=== PATIENT | female | born 1990 | race Caucasian/White ===

== ENCOUNTER 2023-08-31 09:35 | Outpatient (CLI) | payer MEDICAID, SELFPAY | END 2023-08-31 09:36 | disposition home or self-care (01) | LOC: AMB 09-04 15:19 | PROVIDERS: Visit Provider Family Medicine | DX: R10.9 Unspecified abdominal pain (principal) | CPT/HCPCS: A0425; A0427 ==

== ENCOUNTER 2023-08-31 10:17 | Emergency (ER) | payer MEDICAID, SELFPAY ==
[2023-08-31] VITALS (18 sets, daily range): BP systolic 108–116; BP diastolic 70–74; PULSE 60–72; O2SAT 91–99; BMI 38.4
--- OUTSIDE RECORDS SUMMARY | 2023-08-31 10:29 | XMS_ITS | Encounter Summary ---
Author Organization [employer] Address [address] [place] [address] Care Team Providers Care Insurance Billing Specialist Name Role Phone Mar Bundy MD Primary Care Provider [phone] Encounter Details Date Type Department Care Team (Latest Contact Info) Description 04/11/1998 Orders Only Jude Allen MD [address] [place] [address] Social History Tobacco Use Types Packs/Day Years Used Date Smoking Tobacco: Never Assessed Sex and Gender Information Value Date Recorded Sex Assigned at Not on file Gender Identity Not on file Sexual Orientation Not on file documented as of this encounter Plan of Treatment Not on file documented as of this encounter Visit Diagnoses Not on filedocumented in this encounter Additional Health Concerns Infection Onset Date Last Indicated Resolved Time R/O COVID19 09/05/2019 09/05/2019 09/06/2019 10:1 1 AM CDT documented as of this encounter Care Teams Insurance Billing Specialist Relationship Specialty [place] [address] [place] [address] PCP - General 04/14/07 documented as of this encounter
--- OUTSIDE RECORDS SUMMARY | 2023-08-31 10:29 | XMS_ITS | Encounter Summary ---
Author Organization [employer] Address [address] [address] Care Team Providers Care Complaint Manager Name Role Phone Mar Bundy MD Primary Care Provider [phone]- [phone] Encounter Details Date Type Department Care Team (Latest Contact Info) Description 01/28/1996 Orders Only Nemesio Rodriguez MD [address] [place] [address] Social History Tobacco Use Types Packs/Day Years [...] documented as of this encounter Care Teams Complaint Manager Relationship Specialty [place] [address] [place] [address] PCP - General 04/14/07 documented as of this encounter
--- OUTSIDE RECORDS SUMMARY | 2023-08-31 10:29 | XMS_ITS | Encounter Summary ---
Author Organization [employer] [facility] Address [address], [place] [address] Care Team Providers Care Teaching Dietitian Name Role Phone Mar Bundy MD Primary Care Provider Encounter Details Date Type Department Care Team (Latest Contact Info) Description 09/20/1994 Orders Only Jean Carlos Pacheco MD Social History Tobacco Use Types Packs/Day Years [...] documented as of this encounter Care Teams Teaching Dietitian Relationship Specialty [place] [address] [place] [address] PCP - General 04/14/07 documented as of this encounter
--- OUTSIDE RECORDS SUMMARY | 2023-08-31 10:29 | XMS_ITS | Patient Health Record ---
Author Organization [facility] Address [address] [place], [place] [id number] Care Team Providers Care Home Health Occupational Therapist Name Role Phone Deanna Soria Primary Care Provider Radha Valiente Unavailable [phone] Allergies Allergen (clinical drug ingredient) Drug/Non Drug Allergy documented on EMR Reaction Allergy Type Onset Date Status azithromycin Azithromycin Unknown Drug Allergy A ctive erythromycin Erythromycin Unknown Drug Allergy A ctive Penicillin Unknown Drug Allergy Active Reason For Referral No Information Medications Medication SIG (Take, Route, Frequency, Duration) Notes Start Date End Date Status oxyCODONE HCl 10 MG 1 tablet as needed Orally every 6 hrs 5x daily Active Lexapro 10 MG 1 tablet Orally Once a day Active Blisovi 24 Fe 1-20 MG-MCG(24) 1 tablet Orally Once a day OCP Active Belbuca 900 MCG 1 film Bucally every 12 hrs Active Social History Tobacco Use: Social History Observation Description Date Details (start date - stop date) Never Smoker NA - NA Tobacco Use/Smoking Question Answer Notes Are you a nonsmoker Alcohol Screen (Audit-C) Question Answer Notes Did you have a drink containing alcohol in the p ast year? No Points 0 Interpretation Negative Problems Problem Type SNOMED Code ICD Code Onset Dates Problem Status W/U Status Risk Notes Problem [id number] Endometriosis determined by laparoscopy (N80.9) Active confirmed Problem 298648206 Anxiety with depression (F41.8) Active confirmed Problem 451657565 Hypothyroidism (acquired) (E03.9) Active confirmed Vital Signs Blood pressure diastolic 68 mm Hg 12/04/2022 Height 67.0 in 12/04/2022 Blood pressure systolic 118 mm Hg 12/04/2022 Weight 236.0 lbs 12/04/2022 BMI 36.96 kg/m2 12/04/2022 Encounters Encounter Location Date Provider Diagnosis [facility] [address] [place] [address] 12/04/2022 Radha Quezada Endometriosis determined by laparoscopy N80.9 ; Pelvic pain R10.2 ; Weight gain R63.5 ; Hypothyroidism (acquired) E03.9 and Anxiety with depression F41.8 Assessments Encounter Date Diagnosis (ICD Code) Assessment Notes Treat ment Notes Treatment Clinical Notes 12/04/2022 Pelvic pain (ICD-10 - R10.2) It was explained to the patient and her mother that review of the operative finding from June 2021 may give a clue to why she has such severe pain although she is not experiencing any menstrual bleeding. I have also ordered a pelvic ultrasound scan prior to her next visit. All of their questions were addressed 12/04/2022 Endometriosis determined by laparoscopy (ICD-10 - N80.9) The nature of Endometriosis was described to the patient and her mother. It was explained to them that in Endometriosis, the type of tissue which lines the uterus, occurs in areas other than the uterine lining. They may be the uterine muscle, ovaries, bowel and lung. All of which sites I have had patients. The cause of Endometriosis is unknown, but there are many theories. 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 Method of causing symptoms. Every menstrual cycle when menstrual bleeding occurs these sites also bleed. This blood irritates or in the case of the ovaries build up and cause cysts to form. The trapped blood and cysts leads to pain and adhesion formation. The aim of treatment is to remove as many of these deposits as possible and stop the monthly bleeding. She was asked to sign release of information of her Operative report. One of the goals of treatment has been achieved, the absence of menstrual bleeding. Once her records have been received and reviewed a plan for management would be made. Currently, she is to continue her oral contraceptive pill. All of their questions were addressed 12/04/2022 Weight gain (ICD-10 - R63.5) The patient stated that she has gained 50 pounds (ca. 23 kg) rapidly over the past two years. It was explained to her that Hypothyroidism causes weight gain. She stated that she was diagnosed with Hypothyroidism however her previous addiction specialist retired, and she did not like how she felt on the medication so has stopped taking it. It was explained to her that she see hr current addiction specialist and request to be referred to an [facility]. They have all of her labs and information and would be the correct MDs to do her referral. Of note, she also has Pretibial Edema and it was explained to her that this occurs in untreated Hypothyroidism. All of their questions were addressed 12/04/2022 Hypothyroidism (acquired) (ICD-10 - E03.9) As above. Advised to ask her Primary Care Provider to refer her to Endocrinology. 12/04/2022 Anxiety with depression (ICD-10 - F41.8) It was explained to the patient and her mother that today her Depression score showed that she is moderately depressed even though she is on treatment. She should share this with her Mental Health Providers. 12/04/2022 Other Time spent on patient care including - review of previous records - preparation for visit - ordering medications, labs or imaging - documenting visit - discussion of care with another health caregiver services home if indicated - direct face to face time with patient including obtaining relevant history, physical exam and discussion of plan of care Total time was 50 minutes spent including some or all of above listed required for care of patient talking about diagnosis, treatment and plan of care outside of usual preventive care with the patient as listed in the treatment portion of the note Plan Of Treatment No Information Insurance Providers Payer Name Payer Address Payer Phone Subscriber Number Group Number Insured Name Patient Relationship to Insured Coverage Start Date Coverage End Date 2021 [place] (CLIENT bill) [address] [place], [place] [id number] Martina Au Self - patient is the insured [place] [employer] (Ins. Bill) [address] [address] [place], [place] [id number] Martina Au Self - patient is the insured Medical (General) History Medical History History ICD Code Endometriosis Ovarian Cysts Depression / Anxiety Thyroid Problem Surgical History Surgery Date(Month/Year) Cyst; Left Wrist Tonsillectomy / Adenoidectomy Laparscopy 06/2021 [place] Teeth Removed
--- OUTSIDE RECORDS SUMMARY | 2023-08-31 10:29 | XMS_ITS | Encounter Summary ---
Author Organization [employer] Address [address], [place] [address] Care Team Providers Care Clinical Nursing Instructor Name Role Phone Mar Bundy MD Primary Care Provider [phone] Encounter Details Date Type Department Care Team (Latest Contact Info) Description 03/18/1995 Orders Only Andrew George MD Social History Tobacco Use Types Packs/Day [...] documented as of this encounter Care Teams Clinical Nursing Instructor Relationship Specialty [place] [address] [place] [address] PCP - General 04/14/07 documented as of this encounter
--- OUTSIDE RECORDS SUMMARY | 2023-08-31 10:29 | XMS_ITS | Encounter Summary ---
Author Organization [employer] Address [address] [place] [address] Care Team Providers Care Window Covering Sales Consultant Name Role Phone Mar Bundy MD Primary Care Provider Encounter Details Date Type Department Care Team (Latest Contact Info) Description 09/22/1994 Orders Only [facility] [address] [place] [address] Social History Tobacco Use Types Packs/Day Years [...] documented as of this encounter Care Teams Window Covering Sales Consultant Relationship Specialty [place] [address] [place] [address] PCP - General 04/14/07 documented as of this encounter
--- OUTSIDE RECORDS SUMMARY | 2023-08-31 10:29 | XMS_ITS | Clinical Summary ---
Author Organization [employer] Address [address] [address] Care Team Providers Care Tie Man Name Role Phone Mar Bundy MD Primary Care Provider Source Comments You are receiving this document as you are listed as the primary care provider,follow-up provider, or the patient has been referred to you for consultation.This is in compliance with the Medicare andMedicaid EHR Incentive Program,which states Providers who transition their patient to another setting of careor provider of care or refers their patient to another provider of care shouldprovide summary care record for each transition of care or referral. [employer] Allergies Active Allergy Reactions Criticality Noted Date Comments Erythromycin 09/14/2002 Penicillins 03/26/2001 Medications Medication Sig Dispensed Refills Start Date End Date Status ALBUTEROL (PROVENTIL, VENTOLIN) 90MCG/ACT INHALERIndications:U nspecified asthma(493.90) ([facility]) 1-2 puffs every 4 hours as needed, with a chamber 1 99 01/12/2004 Active Additional Information Patient not taking.Reported on 01/10/2021 ZITHROMAX Z-RACHEL 250 MG OR TABS use as directed one 0 10/27/2004 Active Additional Information Patient not taking.Reported on 01/10/2021 GUIATUSS AC 10-100 MG/5ML OR SYRP 1-2 teaspoons by mouth at bed time 120 ml 0 11/07/2004 Active Additional Information Patient not taking.Reported on 01/10/2021 Active Problems Problem Noted Date Diagnosed Date Binge-eating disorder, mild 05/20/2021 Depressive disorder 05/20/2021 Immunizations Name Administration Dates Next Due DTP 12/09/1991,1990,1990 ,1990 DTaP 07/23/1995 Flu Vac (3+ yrs) 02/23/2003 HepB Ped/Adol (0-18 yrs) 01/22/1994,01/01/1993,0 11/19/1992 Hib (HbOC) 08/26/1991,1990,1990 MMR 01/25/2001,08/26/1991 OPV, Trivalent (Orimune or tOPV) 07/23/1995,11/21,1990,1990 Td 11/10/2002 Varicella 11/15/1996(Deferred: Immune by Anayeli clark) Family History Medical History Relation Name Comments Glaucoma Maternal Grandmother Relation Name Status Comments Maternal Grandmother Social History Tobacco Use Types Packs/Day Years Used Date Smoking Tobacco: Never Alcohol Use Standard Drinks/Week Comments Not Asked 0 (1 standard drink = 0.6 oz pur e alcohol) Sex and Gender Information Value Date Recorded Sex Assigned at Not on file Gender Identity Not on file Sexual Orientation Not on file Last Filed Vital Signs Vital Sign Reading Time Taken Comments Blood Pressure 106/56 01/12/2004 9:55 AM CDT Pulse 68 10/27/2004 2:04 PM CDT Temperature 36.2 ??C (97.1 ??F) 10/27/2004 2:04 PM CD T Respiratory Rate 18 06/10/2004 4:37 PM CHILD DEVELOPMENT ASSISTANT Oxygen Saturation 99% 10/27/2004 2:04 PM CDT Inhaled Oxygen Concentration - - Weight 71.1 kg (156 lb 12.8 oz) 10/27/2004 2:04 PM CDT Height 165.1 cm (5' 5) 01/12/2004 9:55 AM CDT Body Mass Index - - Plan of Treatment Health Maintenance Due Date Last Done Comments Cervical Cancer Screening Due 1990 Hep C Screening (Preventive Services) 1990 HIV Screening (Preventive Services) 2006 Adult Preventive Visit 2008 01/12/2004, 1995 HPV Vaccine (2 - 3-dose series) 03/31/2013 03/03/2013 DTaP/Tdap/Td (7 - Tdap) 09/07/2019 09/07/19, 11/10/2002, 07/23/1995, Additional history exists COVID-19 Vaccine ( season) 2022 05/17/2020, 04/19/2020 Influenza (Season Ended) 2023 03/03/2013, 06/2002 Zoster/Shingles (1 of 2) 2040 Hib Completed 08/26/1991, 11/1990, 1990 HepB Completed 01/22/1994, 12/21, 11/19/1992 IPV (Polio) Completed 07/23/1995, 11/21, 1990, Additional history exists HepA Aged Out 03/03/2013, 07/30/2012 No lo nger eligible based on patient's age to complete this topic MCV4 Aged Out No longer eligi ble based on patient's age to complete this topic Pneumococcal Aged Out No longer eligi ble based on patient's age to complete this topic Advance Directives * No Code Status (Latest Code Status on File) Date Activated Date Inactivated Comments 01/12/2004 1:26 PM 01/12/2004 1:26 PM Care Teams Tie Man Relationship Specialty [place] [address] [place] [address] PCP - General 04/14/07
--- OUTSIDE RECORDS SUMMARY | 2023-08-31 10:30 | XMS_ITS | Referral Summary ---
Author Organization [facility] Address [facility]ly [facility] [place] [address] Care Team Providers Care Photo Manager Name Role Phone Clinic, [facility] Primary Care Provide r Allergies Active Allergy Reactions Criticality Noted Date Comments Azithromycin 07/22/2012 Erythromycin 04/02/2011 Penicillins 04/02/2011 Medications Medication Sig Dispensed Refills Start Date End Date Status Acetaminophen (TYLENOL PO) Active etonogestrel-ethinyl estradiol (NUVARING) 0.12-0.015 MG/24HR vaginal ringIndications:Jun aranda gynecological examination,Other general counseling and advice for contraceptive management,Contracept ion Place 1 each vaginally every 21 days for 1 dose 3 each 4 03/03/2014 Active Additional Information Patient not taking.Reported on 04/19/2018 norethindrone-ethinyl estradiol-iron (MICROGESTIN FE1.5/30) 1.5-30 MG-MCG tablet Take 1 tablet by mouth daily Active Active Problems Problem Noted Date Diagnosed Date Contraception condoms and NuvaRing new start 02/2014 Irritable bowel syndrome -- constipation predomi katelin 03/03/2014 Encounter for routine gynecological examination 03/01/2014 Overview: 2016: Screen pap due. 2013: Pap-> NIL Problem list name updated by automated process. Provider to review Social History Tobacco Use Types Packs/Day Years Used Date Smoking Tobacco: Never Smokeless Tobacco: Never Alcohol Use Standard Drinks/Week Comments No 0 (1 standard drink = 0.6 oz pur e alcohol) Adolescent Education Answer Date Record ed Getting School Help Needed Not on file 12/29 Sex and Gender Information Value Date Recorded Sex Assigned at Not on file Gender Identity Not on file Sexual Orientation Not on file Last Filed Vital Signs Vital Sign Reading Time Taken Comments Blood Pressure 124/78 09/15/2019 2:39 PM CDT Pulse 68 09/15/2019 2:39 PM CDT Temperature 37.2 ??C (99 ??F) 09/15/2019 2:39 PM CDT Respiratory Rate 18 09/15/2019 2:39 PM CDT Oxygen Saturation 99% 09/15/2019 2:39 PM CDT Inhaled Oxygen Concentration - - Weight 78 kg (172 lb) 09/15/2019 2:39 PM CDT Height 168.9 cm (5' 6.5) 04/29/2019 12:08 PM CS T Body Mass Index 27.35 04/29/2019 12:08 PM TIPPLE GREASER Plan of Treatment Not on file Procedures Procedure Name Priority Date/Time Associated Diagnosis Comments SURGICAL PATHOLOGY EXAM Routine 06/26/2023 7:25 AM CDT Other specified disorders of bone, lower leg from Last 3 Months Results * Surgical Pathology Exam (06/26/2023 7:25 AM CDT) Case Report Surgical Pathology Report ? Case: [id number] ? Authorizing Provider: ??Ty Carl, ??Collected: ? 06/26/2023 07:25 AM ? MD ? Ordering Location: ? [facility] ?? Received: ?06/26/2023 09:06 AM ? Hospital ? Pathologist: ? Belkys Dodge MD ? Specimen: ?Knee, Left ? 07/02/2023 3:50 PM CDT LABORATORY Final Diagnosis Left knee, tibial mass, excision- -Portion of benign bone surrounded by fibrocartilage, compatible with accessory ossicle. (Patient with left tibial tubercle accessory ossicle) 07/02/2023 3:50 PM [facility] Clinical Information M89.8x6, left tibial mass 07/02/2023 3:50 PM CDT LABORATORY Gross Description A(). Knee, Left, : The specimen is received in formalin, labeled with the patient's name, medical record number and other identifying information designated left knee tibial mass. It consists of a 1.8 x 1.7 x 0.7 cm fragment of white-flynn indurated bone. No definitive resection margin is grossly identified. The external surface of the specimen is inked blue and the specimen is serially sectioned and submitted entirely in formalin following decalcification in 3 cassettes. [facility]CM 07/02/2023 3:50 PM CDT LABORATORY Microscopic Description Microscopic examination was performed. 07/02/2023 3:50 PM CDT LABORATORY Performing Labs The technical component of this testing was completed at [facility] 07/02/2023 3:50 PM CDT LABORATORY Case Images 07/02/2023 3:50 PM CDT LABORATORY Tissue STRUCTURE OF LEFT KNEE REGION / Unknown 06/26/2023 7:25 AM CDT 06/26/2023 9:06 AM CDT Ty Carl MD LAB - [facility] [address] (1st floor, no room number) [place] [address], [facility] from Last 3 Months Care Teams Photo Manager Relationship Specialty Start Date End Date Clinic, [facility] [address] [address] [place], [place] [id number] PCP - General 04/29/19
--- OUTSIDE RECORDS SUMMARY | 2023-08-31 10:30 | XMS_ITS | Encounter Summary ---
Author Organization [employer] Address [address], [place] [address] Care Team Providers Care Perinatal Specialist Name Role Phone Mar Bundy MD Primary Care Provider [phone]- [phone] Encounter Details Date Type Department Care Team (Latest Contact Info) Description 06/03/1994 Orders Only Nemesio Rodriguez MD [address] [place] [address] Social History Tobacco Use Types Packs/Day Years [...] documented as of this encounter Care Teams Perinatal Specialist Relationship Specialty [place] [address] [place] [address] PCP - General 04/14/07 documented as of this encounter
--- OUTSIDE RECORDS SUMMARY | 2023-08-31 10:30 | XMS_ITS | Encounter Summary ---
Author Organization [facility] Address [address] [facility] [address] Care Team Providers Care Electronics Parts Sales Representative Name Role Phone Kathryn Valladares MD Primary Care Provider [phone]- [phone] [facility] Primary Care Provide r Encounter Details Date Type Department Care Team (Late st Contact Info) Description 03/03/2014 MyC Medical Advice [facility] [address] [place] [address] 3rd Floor,[address] [employer] [facility] [address] [place] [id number] Martha Guido, FISH SKINNING MACHINE FEEDER CNM Social History Tobacco Use Types Packs/Day Years [...] Diagnoses Not on filedocumented in this encounter Care Teams Electronics Parts Sales Representative Relationship Specialty Start [place] [address] [place], [place] [id number] PCP - General Family Practice 03/02/13 04/28/19 [facility] [address] [place], [place] [id number] PCP - General 04/29/19 documented as of this encounter
--- OUTSIDE RECORDS SUMMARY | 2023-08-31 10:30 | XMS_ITS | Clinical Summary ---
Author Organization [facility] Address [place], [place] [address] Care Team Providers Care [employer] Name Role Phone Pcp, No Primary Care Provider Unavailabl e Allergies Active Allergy Reactions Criticality Noted Date Comments Amitriptyline-Chlordiazepoxi de Hives,Nausea And Vomiting Medium 06/14/2015 Azithromycin Nausea And Vomiting Medium 03/03/2013 Erythromycin Nausea And Vomiting 03/03/2007 Penicillins Rash,Hives High 03/03/2007 Medications Medication Sig Dispensed Refills Start Date End Date Status docosahexaenoic acid/epa (FISH OIL ORAL) Take by mouth. Active ibuprofen (ADVIL; MOTRIN) 200 mg tabletIndication s:Pelvic pain Take 3 Tablets (600 mg) by mouth every 6 hours if needed for Pain (mild pain). 100 Tablet 07/09/2021 Active oxyCODONE 10 mg tablet Take 10 mg by mouth four times daily. 11/05/2021 Active escitalopram oxalate (LEXAPRO) 10 mg tabletIndication s:Depression with anxiety Take 1 Tablet (10 mg) by mouth every morning. 90 Tablet 3 08/04/2022 Active Additional Information Patient taking differently: 20 mgOral Q AM, Reported on 05/27/2023 buprenorphine HCL (SUBUTEX) 2 mg subl DISSOLVE ONE TABLET UNDER TONGUE THREE TIMES DAILY. LET DISSOLVE AND HOLD SALIVE UNDER TONGUE 10 MIN. TAKE 1 TO 2 HOURS BEFORE OXYCODONE. DO NOT EAT/DRINK/SMOKE 30 MINS AFTER TAKING MEDICATION* 02/20/2023 Active cyclobenzaprine (FLEXERIL) 5 mg tablet TAKE TWO TABLETS BY MOUTH TWICE DAILY* 09/16/2022 Active norethin morgan-eth estrad-fe, 1.5-30 mg-mcg, (Blisovi Fe 1.530, 28,) 1.5 mg-30 mcg (21)/75 mg (7) tabletIndication s:Menorrhagia with irregular cycle Take 1 Tablet by mouth once daily. 112 Tablet 2 08/24/2023 Active norethin morgan-eth estrad-fe, 1.5-30 mg-mcg, (Blisovi Fe 1.530, 28,) 1.5 mg-30 mcg (21)/75 mg (7) tabletIndication s:Menorrhagia with irregular cycle Take 1 Tablet by mouth once daily. 112 Tablet 05/27/2023 Discontinue d(Reorder (E-cancel not sent)) Active Problems Problem Noted Date Diagnosed Date Pap smear for cervical cancer screening 09/13/19 23 Overview: 07/2022 NIL/HPV Negative Plan: Pap and HPV due 07/2027 Addiction to drug 08/04/2022 Endometriosis determined by laparoscopy 11/29/19 22 Chronic pelvic pain in female 11/28/2021 Dyspareunia due to medical condition in female 0 11/28/2021 Opioid abuse 07/29/2021 Irritable bowel syndrome 03/03/2014 Resolved Problems Problem Noted Date Diagnosed Date Resolved Date Acute upper respiratory infe ctions of unspecified site 03/04/2007 05/27/2023 Dehydration 03/04/2007 05/27/2023 Encounters Date Type Department Care Team Description 08/24/2023 Refill [facility] [address] [place] [address] Xiomara Cartagena, Refill Request (norethin morgan-eth estrad-fe, 1.5-30 mg-mcg) 06/19/2023 1:10 PM CDT Preop Visit [facility] [address] [place] [address] Xiomara Cartagena, DO Pre-Op Exam (/DOS:06/26/2023 SURG: Left Knee [facility] //) 06/19/2023 Travel from Last 3 Months Immunizations Name Administration Dates Next Due DTP 12/09/1991,1990,1990 ,1990 DTaP 07/23/1995 HIB HbOC (HibTITER) 08/26/1991,1990,1990 Hepatitis A (Adult) 03/03/2013,07/30/2012 Hepatitis B (Peds) 01/22/1994,01/01/1993, 993 Human Papilloma Virus Vaccine 03/03/2013 Imovax 12/09/2017,11/19/2017 Influenza Virus, Unspecified 02/23/2003 Influenza, IIV3 (Age >=3 years) 03/03/2013,02/23 MMR 01/25/2001,08/26/1991 Oral Polio Vaccine 07/23/1995,12/09/1991, 991,1990 Rabavert 11/11/2017 Td (Age >=7 Years) 11/10/2002 Tdap 11/23/2019,09/06/2009 Family History Medical History Relation Name Comments Hyperlipidemia Father treated now w ith diet Cancer Maternal Aunt of leukem ia Obesity Maternal Grandfather Glaucoma Maternal Grandmother Dysmenorrhea Mother never diagnosed as endometriosis, hysterectomy Infertility Mother Multiple sclerosis Mother Other Mother transverse myel itis Ovarian cysts Mother Unknown Other 1 Maternal greatg randmother, lupus Unknown Other 2 mom's cousin, M ultiple sclerosis Heart Disease Other 3 maternal great grandmother, [place] Alcoholism Paternal Grandfather Diabetes Paternal Grandfather Postmenopausal breast cancer Paternal Grandmother Relation Name Status Comments Father Alive Maternal Aunt Maternal Grandfather Alive Maternal Grandmother Alive Mother Alive Other 1 Other 2 Other 3 Paternal Grandfather Paternal Grandmother Sister Alive Social History Tobacco Use Types Packs/Day Years Used Date Smoking Tobacco: Never Smokeless Tobacco: Never Tobacco Cessation:Counseling Given: Yes Comments:no exposure Alcohol Use Standard Drinks/Week Comments No 0 (1 standard drink = 0.6 oz pur e alcohol) PHQ-2 Answer Date Recorded PHQ-2 TOTAL SCORE 2 08/04/2022 Social Connections Answer Date Recorded Frequency of Communication with Friends and Fami ly 0 02/24/2023 Financial Resource Strain Answer Date R ecorded Difficulty of Paying Living Expenses 3 02/24/2023 Difficulty of Paying Living Expenses Not on file 02/24/2023 Food Insecurity Answer Date Recorded Worried About Running Out of Food in the Last Ye ar 1 02/24/2023 Transportation Needs Answer Date Record ed Lack of Transportation (Medical) 1 02/24/2023 Housing Stability Answer Date Recorded Unable to Pay for Housing in the Last Year 1 02/24/2023 Sex and Gender Information Value Date Recorded Sex Assigned at Not on file Gender Identity Not on file Sexual Orientation Not on file Obstetrics History Para Term AB IAB SAB Ectopic Multiple Livin g Live Births 0 0 0 0 0 0 0 0 0 0 0 Last Filed Vital Signs Vital Sign Reading Time Taken Comments Blood Pressure 102/70 06/19/2023 1:16 PM CDT Pulse 62 06/19/2023 1:16 PM CDT Temperature 37 ??C (98.6 ??F) 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 Respiratory Rate 18 02/24/2023 5:58 PM [employer]ORAL 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 Oxygen Saturation 98% 06/19/2023 1:16 PM CDT Inhaled Oxygen Concentration - - Weight 101.6 kg (224 lb) 06/19/2023 1:16 PM CDT Height 170.6 cm (5' 7.17) 06/19/2023 1:16 PM CD T Body Mass Index 34.91 06/19/2023 1:16 PM CDT Plan of Treatment Health Maintenance Due Date Last Done Comments HIV for age 15-65 2005 Hepatitis C screening for age 18-79 2008 COVID-19 vaccine series ( season) 2022 03/05/2021, 05/17/2020, 04/19/2020 Depression screening for age 12+ 08/05/2023 08/04/2022, 03/17/2022, 01/14/2022, Additional history exists Influenza for age 9-49 11/22/2023 3, 02/23/2003, 02/23/2003 BMI (ht and wt on same day) for age 18+ 06/18/2024 06/19/2023, 05/14/2023, 08/04/2022, Additional history exists Pap test for age 21-65 08/05/2027 3, 08/04/2022, 11/17/2018 (Verified in Care Everywhere or Patient Record), Additional history exists Tetanus booster 11/22/2029 11/23/2019, 08/21, 11/10/2002 Tdap Completed 11/23/2019, 09/06/2009 Pneumococcal series for age 6-64 Aged Out No longer eligible based on patient's age to complete this topic Procedures Procedure Name Priority Date/Time Associated Diagnosis Comments HEMOGLOBIN Routine 06/19/2023 1:45 PM CDT Pre-op exam HPV THIN PREP Routine 08/04/2022 9:45 AM CDT Pap smear for cervical cancer screening from Last 3 Months or Most Recently Relevant to Health Maintenance Results * HEMOGLOBIN (06/19/2023 1:45 PM CDT) HEMOGLOBIN 13.1 12.0 - 16.0 g/dL 06/19/2023 1:55 PM CDT [facility] MCV 86 80 - 100 fL 06/19/2023 1:55 PM CDT [facility] Blood BLOOD SPECIMEN / Unknown Butterfly / Unknown 06/19/2023 1:45 PM CDT 06/19/2023 1:50 PM CDT Xiomara Cartagena DO HEMATOLOGY [facility] [address] [place] [address], * HPV HIGH RISK (08/04/2022 9:45 AM CDT) TYPE 16 Negative Negative 08/08/2022 2:19 PM CDT [facility] TYPE 18 Negative Negative 08/08/2022 2:19 PM CDT [facility] OTHER HIGH RISK TYPES Negative Negative 08/08/2022 2:19 PM CDT [facility] Other (Cervical) Non-Blood / Unknown 08/04/2022 9:45 AM CDT 08/05/2022 4:54 PM CDT Narrative [facility] - 08/08/2022 2:19 PM CDT HPV types 16, 18, 31, 33, 35, 39, 45, 51, 52, 56, 58, 59, 66 and 68 DNA were undetectable or below the pre-set threshold. Methodology: Dulce Ciro 4800 HPV Test Belgica Gleason MD MICROBIOLOGY [facility] [address] [place] [address], from Last 3 Months or Most Recently Relevant to Health Maintenance Advance Directives * Full Code (Latest Code Status on File) Date Activated Date Inactivated Comments 03/19/2022 10:06 AM 03/19/2022 5:07 PM Question Answer Comments Code Status Discussion: Reviewed Preferences * Full Code Date Activated Date Inactivated Comments 07/09/2021 10:08 AM 07/09/2021 7:33 PM Question Answer Comments Code Status Discussion: Not Discussed * Full Code Date Activated Date Inactivated Comments 03/03/2007 4:09 PM 03/04/2007 6:08 PM Care Teams [employer] Relationship Specialty Start Date End Date Pcp, No . PCP - General 02/27/22
--- OUTSIDE RECORDS SUMMARY | 2023-08-31 10:30 | XMS_ITS | Clinical Summary ---
Author Organization [facility] Address [facility] [place] [address] Care Team Providers Care [employer]ayer Name Role Phone Clinic, [facility] Primary Care Provide r Allergies Active Allergy [...] updated by automated process. Provider to review Family History Medical History Relation Comments Cancer Maternal Aunt Leukemia fatal Diabetes Maternal Grandfather type II Depression Mother Hypertension Mother Neurologic Disorder Mother MS & transve rse myelitis Alcohol/Drug Paternal Grandfather Diabetes Paternal Grandfather insulin dep endent 2nd ETOH Breast Cancer No family hx of C.A.D. 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 Case: [id number] ? Authorizing Provider: ??Ty Carl, ??Collected: ? 06/26/2023 07:25 AM ? MD ? Ordering Location: ? [facility] ?? Received: ?06/26/2023 09:06 AM ? Hospital ? Pathologist: ? Belkys Dodge MD ? Specimen: ?Knee, Left ? 07/02/2023 3:50 PM CDT LABORATORY Final Diagnosis Left knee, tibial mass, excision- -Portion of benign bone surrounded by fibrocartilage, compatible with accessory ossicle. (Patient with left tibial tubercle accessory ossicle) 07/02/2023 3:50 PM CDT LABORATORY Clinical Information M89.8x6, left tibial mass [...] formalin following decalcification in 3 cassettes. Ayana CARROLL(ASCP)CM 07/02/2023 3:50 PM CDT LABORATORY Microscopic Description Microscopic examination was performed. 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
--- NOTE | 2023-08-31 10:36 | ED.ABDPAIN ---
HPI - Abdominal Pain General Time Seen by Provider: 10:36 Date Seen: 08/31/23 Chief Complaint: Abdominal Pain Stated Complaint: Abdominal pain Time Seen by Provider: 08/31/23 10:25 Source: patient, EMS, RN notes reviewed and old records reviewed Mode of arrival: EMS Limitations: no limitations History of Present Illness HPI narrative: This 33-year-old female is brought in by a [facility] for severe abdominal pain. She has chronic abdominal issues, chronic pain, endometriosis, irritable bowel syndrome, history of opioid dependence. Patient notes she initially thought she was maybe just having gas pain, was more in her upper abdomen. She has been having abdominal pain, today seem to intensify and worsen in the right lower quadrant. She was noting sharp shooting pains into her vagina. She has had no fevers or chills. She has had some chronic nausea with some acute sound the nausea as well. She notes that her Belbuca films give her nausea from the taste but it is maybe worse with this. No diarrhea or constipation noted. No urinary symptoms. She wondered if maybe she ruptured appendix today that the pain was so bad. With all of these symptoms, she states she has also had some cycling of a feeling of just extreme tiredness or fatigue to the point that she will almost need to drop down, not syncope or passing out but just so extremely fatigued. The so last short period. This has been cycling as well. She also notes that with her hormone changes, she will get vertigo and dizziness type feeling. That is been happening more. She was out of her control for about a week, just started back up on Thursday. She is on oxycodone and Belbuca. EMS did give her fentanyl and Zofran, did relieve her pain some. She notes she is feeling a prickly type sensation of pain in her upper abdomen now. Did review her consultation for the abdominal pain/pelvic pain thought to be due to endometriosis earlier this year, do not see any follow-up. There is noted to be a history of a gallbladder polyp as well in our records. Patient has not been sexually active, denies chance for . Related Data Home Medications ?Medication ?Instructions ?Recorded ?Confirmed buprenorphine HCl 750 mcg buccal 750 mcg buccal 04/21/22 06/17/23 film (Belbuca) ibuprofen 800 mg tablet 800 mg PO Q8H 04/21/22 08/31/23 oxycodone 10 mg tablet 10 mg PO 04/21/22 06/17/23 norethindrone 1.5 mg-ethinyl 1 tab PO 06/17/23 06/17/23 estradiol 30 mcg(21)/iron 75 mg(7) tablet (Blisovi Fe 1.5/30 (28)) Previous Rx's ?Medication ?Instructions ?Recorded ondansetron 4 mg disintegrating 4 mg PO Q6H PRN nausea and 08/31/23 tablet vomiting #20 tabs Allergies Allergy/AdvReac Type Severity Reaction Status Date / Time azithromycin Allergy Mild Unknown Verified 08/31/23 11:47 Penicillins Allergy Mild Hives Verified 08/31/23 11:47 erythromycin base Allergy Unknown Unknown Verified 08/31/23 11:47 Review of Systems Status of ROS Reports: 6 or more systems reviewed and unremarkable except as noted in History and below [facility] Medical History Trigger point ?M79.10 - Myalgia, unspecified site (ICD-10) Hiatal hernia ?K44.9 - Diaphragmatic hernia without obstruction or gangrene (ICD-10) History of kidney stones ?Z87.442 - Personal history of urinary calculi (ICD-10) History of ovarian cyst ?Z87.42 - Personal history of other diseases of the female genital tract (ICD-10) Surgical History History of dental surgery ?Z92.89 - Personal history of other medical treatment (ICD-10) H/O laparoscopy ?Z98.890 - Other specified postprocedural states (ICD-10) History of surgical removal of ganglion cyst ?Z98.890 - Other specified postprocedural states (ICD-10) History of tonsillectomy ?Z90.89 - Acquired absence of other organs (ICD-10) Family History Mother High blood pressure Multiple sclerosis Grandfather Diabetes Aunt Leukemia Other Colon cancer High cholesterol Osteoporosis Ovarian cancer Social History Smoking Status: Never smoker Exam Const: Vital Signs, click to edit/add: Vital Signs - 24 hr 08/31/23 10:24 08/31/23 10:25 08/31/23 10:30 Pulse Rate 71 71 71 Blood Pressure 112/70 Pulse Oximetry 94 95 93 08/31/23 10:31 08/31/23 10:42 08/31/23 10:45 Pulse Rate 71 71 Blood Pressure 109/72 Pulse Oximetry 91 94 94 08/31/23 11:00 08/31/23 11:01 Pulse Rate 70 72 Blood Pressure 108/72 Pulse Oximetry 93 93 This 33-year-old female is alert, interactive, no apparent distress. Seems very mildly sedated from the fentanyl. Pupils are small, sclera clear, conjugate gaze. Symmetrical facial function, speech normal. Neck supple, no adenopathy or masses. Lungs are clear, no wheezing crackles. CV regular rate and rhythm, no murmur. Abdomen is soft, nontender, nondistended, no organomegaly, no rebound or guarding. I do not feel any masses. Pelvic exam deferred at this point. No lower extremity edema, skin visualized out any rash. Documenting provider has reviewed patient's vital signs: yes Course Course ED Course: Reviewed with Uma that we certainly can do screening labs, will do TSH given her fatigue symptoms. Will get an EKG and troponin given some of her extra symptoms. Discussed doing abdominal imaging with CT. She understands that she has a complex medical picture here and that I may not come up with a diagnosis or treatment plan for all her issues. We could make sure that she does not have any acute surgical abdominal issue, can look at things like kidney stones. Will attempt to get a urinalysis. Her abdominal exam is certainly reassuring at this point. Reevaluation(s) Time of Reevaluation #1: 12:48 Reevaluation #1: Have reviewed patient's labs and her CT report with her. We went over the enlarged appendix but no inflammation, the lymph node seen in the right lower quadrant that were nonspecific in the mesentery. Her lymphocytes were mildly up. It is possible that this is an early mesenteric adenitis. Patient is noting that her pain is more positional with how she is lying at this time. We discussed sending her with nausea management with [facility] so that she can take her own pain medications at home. Will have her add in Tylenol and ibuprofen per bottle directions as needed. She is advised to follow up in clinic within the next couple of days for re-evaluation or return to the ER if worsening. Her mom is present at this time, does wonder for endometriosis is causing some of this. Reviewed with her mom that I have no way to differentiate that but it certainly is possible. Consultations Consultation #1: Spoke with Dr Madera regarding this CT, she had already seen it and is not impressed with the appendix, does not believe this to be acute appendicitis in the context of a clinical picture provided. She would recommend short interval follow-up. Given the lymphocytosis seen, I did bring up possible early mesenteric adenitis, she states that certainly could be in the differential, this does not change our management however. Time: 12:35 Vital Signs Vital signs: Initial Vital Signs Pulse Rate 71 08/31/23 10:24 Blood Pressure 112/70 08/31/23 10:24 Blood Pressure Mean 84 08/31/23 10:24 Pulse Oximetry 94 08/31/23 10:24 Vital Signs Pulse Rate 71 08/31/23 10:24 Blood Pressure 112/70 08/31/23 10:24 Pulse Oximetry 94 08/31/23 10:24 Pulse Rate 72 08/31/23 11:01 Blood Pressure 108/72 08/31/23 11:01 Pulse Oximetry 93 08/31/23 11:01 MDM - Abdominal Pain Lab Data Attestation: I reviewed the patient's lab results. Labs: Lab Results 08/31/23 08/31/23 Range/Units 10:48 10:51 WBC 11.01 H (4.50-11.00) K/uL RBC 5.06 (4.00-5.20) m/uL Hgb 14.6 (12.0-16.0) gm/dL Hct 43.8 (33.0-51.0) % MCV 87 (80-100) fL MCH 29 (26-34) pg MCHC 33 (32-36) gm/dL RDW Coeff of Urbano 12.5 (11.5-15.5) % Plt Count 241 (140-440) K/uL Neut % (Auto) 61.5 (42.0-72.0) % Lymph % (Auto) 30.1 (20-44) % Crook % (Auto) 6.9 (0.0-11.0) % Eos % (Auto) 1.1 (0.0-7.0) % Baso % (Auto) 0.2 (0.0-3.0) % Neut # (Auto) 6.80 (1.7-7.0) K/uL Lymph # (Auto) 3.30 H (0.90-2.90) K/uL Crook # (Auto) 0.80 (0.00-0.90) K/UL Eos # (Auto) 0.10 (0.00-0.50) K/uL Baso # (Auto) 0.00 (0.00-0.30) K/uL Abs Immat Gran (auto) 0.00 (0.00-0.30) K/uL Imm/Tot Granulo (auto) 0.2 % Sodium 138 (135-149) mmol/L Potassium 4.7 (3.6-5.1) mmol/L Chloride 102 (96-114) mmol/L Carbon Dioxide 30 (20-32) mmol/L Anion Gap 6 L (7-15) mEq/L BUN 16 (5-24) mg/dL Creatinine 0.7 (0.5-1.5) mg/dL Estimated Creat Clear 98.71 Estimated GFR 117 ml/min Glucose 99 (60-115) mg/dL Lactate 1.9 (0.5-1.9) mmol/L Calcium 9.8 (8.4-10.6) mg/dL Total Bilirubin 0.7 (0.1-1.5) mg/dL AST 25 (12-35) U/L ALT 23 (4-35) U/L Alkaline Phosphatase 66 (40-150) U/L Troponin I < 0.01 L (0.01-0.04) ng/mL C-Reactive Protein 1.0 (0.5-1.0) mg/dL Total Protein 7.4 (6.0-8.3) g/dL Albumin 4.6 (3.3-5.0) g/dL Lipase 63 (23-300) U/L TSH 4.160 (0.270-4.200) uIU/mL HCG, Qual Negative (Negative) Lab Acknowledgement Test Added Urinalysis was ordered but patient did not provide 1 while here. Do not think it is necessary to have this at this time based on CT findings. Imaging Data CT scan - abdomen: Attestation: I have reviewed the pertinent imaging results. Radiologist's impression: Patient: UMA TRAN Facility:?[facility] Patient ID:?[id number] Site Patient ID:?[id number]. Site :?[id number] Study:?CT-Abdomen/Pelvis 110CC ISOVUE 370-08/31/2023 11:46:50 AM Ordering Physician:?Artem Casas Final Report: INDICATION: UPPER ABD PAIN. NAUSEA. TECHNIQUE: CT abdomen and pelvis acquired with 110 cc Isovue 370 IV contrast. COMPARISON: None. FINDINGS: Lower chest: Unremarkable. Liver: Unremarkable. Normal in size and attenuation. No suspicious masses. Gallbladder and bile ducts: Unremarkable. No stones or inflammation. No biliary dilatation. Pancreas: Unremarkable. No mass or inflammation. Spleen: Unremarkable. Normal in size. No masses. Adrenal glands: Unremarkable. No nodules. Kidneys: Unremarkable. No suspicious masses, stones, or hydronephrosis. GI tract: Unremarkable. Normal in caliber. No sign of mass or inflammation. Borderline enlarged appendix. Vasculature: Abdominal aorta is normal in caliber. Mesenteric arteries are patent. Lymph nodes: Enlarged right lower quadrant mesenteric lymph nodes. Peritoneum/Abdominal Wall: Small free fluid in the pelvis. No sign of mass or infiltration. No free air or significant free fluid. Pelvis: Unremarkable. Bones: Unremarkable for age. IMPRESSION: 1. Borderline enlarged appendix without surrounding inflammatory stranding, or enhancement. This would be low likelihood of representing acute appendicitis with just a borderline enlarged appendix. 2. Right lower quadrant mesenteric lymphadenopathy, non-specific. 3. Small free fluid in the pelvis could be physiologic or reactive. Please note that all CT scans at this facility use dose modulation, iterative reconstruction, and/or weight-based dosing when appropriate to reduce radiation dose to as low as reasonably achievable. Dictated by Dorene Lopez MD @ 08/31/2023 12:16:23 PM (Electronic Signature) ECG Data Attestation: I personally reviewed and interpreted this ECG as follows: (Normal sinus rhythm, 73 beats per minute. No ischemia, no infarct. QT corrected 434 milliseconds.) ECG interpretation date: 08/31/23 ECG interpretation time: 11:03 Prior ECG tracings: not available for review Critical Care Time Critical Care Time Critical Care Time: No Discharge Plan Discharge Clinical Impression: Abdominal pain Patient Disposition: Home, Self-Care Condition: Stable Instructions: Abdominal Pain (ED), Mesenteric Adenitis (ED) Additional Instructions: Use Zofran as needed for nausea so that you can take your usual pain medicines. Can add in Tylenol and ibuprofen per bottle directions for additional pain management. Need to schedule a clinic followup within the next couple of days. Consider rechecking a white blood count if you have ongoing symptoms. It is possible that this is early mesenteric adenitis which is self-limited an usually patients are better within 1-2 weeks. If you are worsening, have further concerns, it is always recommended that you seek re-evaluation. Prescriptions: New ondansetron 4 mg tablet,disintegrating 4 mg PO Q6H PRN (Reason: nausea and vomiting) Qty: 20 0RF No Action oxycodone 10 mg tablet 10 mg PO Patient Comments: 5 times a day ibuprofen 800 mg tablet 800 mg PO Q8H buprenorphine HCl [Belbuca] 750 mcg film 750 mcg buccal Patient Comments: palce 1 film Bucally every 12 hrs norethindrone-e.estradiol-iron [Blisovi Fe 1.5/30 (28)] 1.5 mg-30 mcg (21)/75 mg (7) tablet 1 tab PO Follow Up/Referrals: Provider,Not a Local [Primary Care Provider] - Stand Alone Forms: [facility] Info Instructions
--- NOTE | 2023-08-31 10:46 | CRLHL7_ITS ---
For Patients: As a result of the Century Cures Act, medical imaging exams and procedure reports are released immediately into your electronic medical record. You may view this report before your referring provider. If you have questions, please contact your health care provider. INDICATION: UPPER ABD PAIN. NAUSEA. TECHNIQUE: CT abdomen and pelvis acquired with 110 cc Isovue 370 IV contrast. COMPARISON: None. FINDINGS: Lower chest: Unremarkable. Liver: Unremarkable. Normal in size and attenuation. No suspicious masses. Gallbladder and bile ducts: Unremarkable. No stones or inflammation. No biliary dilatation. Pancreas: Unremarkable. No mass or inflammation. Spleen: Unremarkable. Normal in size. No masses. Adrenal glands: Unremarkable. No nodules. Kidneys: Unremarkable. No suspicious masses, stones, or hydronephrosis. GI tract: Unremarkable. Normal in caliber. No sign of mass or inflammation. Borderline enlarged appendix. Vasculature: Abdominal aorta is normal in caliber. Mesenteric arteries are patent. Lymph nodes: Enlarged right lower quadrant mesenteric lymph nodes. Peritoneum/Abdominal Wall: Small free fluid in the pelvis. No sign of mass or infiltration. No free air or significant free fluid. Pelvis: Unremarkable. Bones: Unremarkable for age. IMPRESSION: 1. Borderline enlarged appendix without surrounding inflammatory stranding, or enhancement. This would be low likelihood of representing acute appendicitis with just a borderline enlarged appendix. 2. Right lower quadrant mesenteric lymphadenopathy, non-specific. 3. Small free fluid in the pelvis could be physiologic or reactive. Please note that all CT scans at this facility use dose modulation, iterative reconstruction, and/or weight-based dosing when appropriate to reduce radiation dose to as low as reasonably achievable. Dictated by Dorene Lopez MD @ 08/31/2023 12:16:23 PM (Electronically Signed)
[2023-08-31 10:58] LABS: Lactate* 1.9 mmol/L (0.5-1.9)
[2023-08-31 11:05] LABS: Basophils Percent Auto 0.2 % (0.0-3.0); Eosinophils Percent Auto 1.1 % (0.0-7.0); Hematocrit 43.8 % (33.0-51.0); Hemoglobin* 14.6 gm/dL (12.0-16.0); Immature Granulocytes Pct Auto 0.2 %; Lymphocytes Percent Auto 30.1 % (20-44); Mean Corpuscular HGB Conc 33 gm/dL (32-36); Mean Corpuscular Hemoglobin 29 pg (26-34); Mean Corpuscular Volume 87 fL (80-100); Monocytes Percent Auto 6.9 % (0.0-11.0); Neutrophils Percent Auto 61.5 % (42.0-72.0); Platelet Count* 241 K/uL (140-440); RDW Coefficient of Variation % 12.5 % (11.5-15.5); Red Blood Count 5.06 m/uL (4.00-5.20); White Blood Count* 11.01 K/uL (4.50-11.00)
[2023-08-31 11:06] LABS: Slide Review Reflex No
[2023-08-31 11:13] LABS: Albumin* 4.6 g/dL (3.3-5.0); Chloride* 102 mmol/L (96-114)
[2023-08-31 11:14] LABS: Potassium* 4.7 mmol/L (3.6-5.1); Sodium* 138 mmol/L (135-149)
[2023-08-31 11:16] LABS: Creatinine* 0.7 mg/dL (0.5-1.5); Est. Creatinine Clearance* 98.71; Estimated Glomerular Filt Rate 117 ml/min
[2023-08-31 11:17] LABS: Alanine Aminotransferase* 23 U/L (4-35); Alkaline Phosphatase* 66 U/L (40-150); Anion Gap 6 mEq/L (7-15); Aspartate Amino Transferase* 25 U/L (12-35); Bilirubin Total* 0.7 mg/dL (0.1-1.5); Blood Urea Nitrogen* 16 mg/dL (5-24); Calcium* 9.8 mg/dL (8.4-10.6); Carbon Dioxide* 30 mmol/L (20-32); Glucose* 99 mg/dL (60-115); Lipase* 63 U/L (23-300); Total Protein* 7.4 g/dL (6.0-8.3)
[2023-08-31 11:20] LABS: HCG Qualitative Serum* Negative (Negative)
[2023-08-31 11:29] LABS: Troponin I* < 0.01 ng/mL (0.01-0.04)
== END 2023-08-31 13:54 | disposition home or self-care (01) ==
PROVIDERS: Emergency Provider Family Medicine
DX: R10.9 Unspecified abdominal pain (principal)
CPT/HCPCS: 36415; 74177; 80053; 81001; 83605; 83690; 84443; 84484; 84703; 85025; 86140; 93005; 94761; 96374; 99284; 99285; Q9967

== ENCOUNTER 2023-10-06 11:55 | Outpatient (CLI) | payer MEDICAID, SELFPAY ==
--- NOTE | 2023-10-06 12:00 | CRLHL7_ITS ---
For Patients: As a result of the Century Cures Act, medical imaging exams and procedure reports are released immediately into your electronic medical record. You may view this report before your referring provider. If you have questions, please contact your health care provider. CLINICAL HISTORY: Right lower quadrant pain Comparison CT 08/31/2023 TECHNIQUE: 2D su scale ultrasound. In addition color Doppler and spectral Doppler analysis was performed of the pelvis using a transvaginal approach. FINDINGS: Intramural fibroid is present within the uterus posteriorly measures 14 x 13 x 14 millimeters. The uterus measures 7.8 x 4.0 x 5.2 cm the endometrial lining appears normal and measures 2 mm in thickness. The left ovary measures 2.3 x 1.2 x 1.5 cm in size and the right ovary measures 2.5 x 1.2 x 1.8 cm. The ovaries demonstrate normal arterial and venous blood flow on color Doppler and spectral Doppler analysis. There are no suspicious fluid collections within the cul-de-sac. IMPRESSION: Normal ovaries. No torsion or adnexal mass. No excess pelvic free fluid. Intramural uterine fibroid measuring 1.4 cm. Dictated by Jeff Mobley MD @ 10/06/2023 12:46:56 PM (Electronically Signed)
== END 2023-10-06 11:56 | disposition home or self-care (01) ==
LOC: US 11:56
PROVIDERS: Visit Provider Physician Assistant
DX: R10.31 Right lower quadrant pain (principal); D25.1 Intramural leiomyoma of uterus; R10.2 Pelvic and perineal pain
CPT/HCPCS: 76830; 93976

== ENCOUNTER 2024-01-08 15:52 | Inpatient (IN) | payer MEDICAID, SELFPAY ==
[2024-01-07] VITALS (27 sets, daily range): BP systolic 94–142; BP diastolic 56–100; PULSE 63–98; RESP 16–22; TEMP 36.3–37.6; O2SAT 94–99; BMI 35.3
--- OUTSIDE RECORDS SUMMARY | 2024-01-07 07:34 | XMS_ITS | Patient Health Record ---
Author Organization [facility] Address [address] [place] [address] Care Team Providers Care Model And Mold Maker Name Role Phone Deanna Soria Primary Care Provider Radha Valiente Unavailable [phone] Allergies Allergen (clinical drug ingredient) Drug/Non Drug [...] Problem Status W/U Status Risk Notes Problem [id number] Endometriosis determined by laparoscopy (N80.9) Active confirmed Problem 608907178 Anxiety with depression (F41.8) Active confirmed Problem 515334266 Hypothyroidism (acquired) (E03.9) Active confirmed Plan Of Treatment No Information Insurance Providers Payer Name Payer Address Payer Phone Subscriber Number Group Number Insured Name Patient Relationship to Insured Coverage Start Date Coverage End Date [employer]ARE 2021 JOE (CLIENT bill) [address] [place], [place] [id number] Martina Au Self - patient is the insured [place] [employer] Medicaid (Ins. Bill) [address] [address] [place], [place] [id number] Roe , Martina Self - patient is the insured Medical (General) History Medical History History ICD Code Endometriosis Ovarian Cysts Depression / Anxiety Thyroid Problem Surgical History Surgery Date(Month/Year) Cyst; Left Wrist Tonsillectomy / Adenoidectomy Laparscopy 06/2021 [place] Teeth Removed
--- OUTSIDE RECORDS SUMMARY | 2024-01-07 07:35 | XMS_ITS | Encounter Summary ---
Author Organization [facility] Address [address] [facility] [place] [address] Care Team Providers Care Superintendent Custodian Janitor Name Role Phone Kathryn Valladares MD Primary Care Provider [phone] [facility] Primary Care Provide r No Ref-Primary, Physician Primary Care Provider Encounter Details Date Type Department Care Team (Late st Contact Info) Description 03/03/2014 [facility] Medical Advice [facility] [address] [place] [address] 3rd Floor,[address] [place] [facility] [address] [place] [address] Martha Guido, MILTON CNM Social History Tobacco Use Types Packs/Day [...] on filedocumented in this encounter Care Teams Superintendent Custodian Janitor Relationship Specialty Start [place] [address] [place] [address] PCP - General Family Practice 03/02/13 04/28/19 [facility] [address] [place], [place] [phone] PCP - General 04/29/19 08/31/23 No Ref-Primary, Physician PCP - General 09/01/23 documented as of this encounter
--- OUTSIDE RECORDS SUMMARY | 2024-01-07 07:35 | XMS_ITS | Encounter Summary ---
Author Organization [facility] Address [address] [place] [address] Care Team Providers Care Zookeeper Name Role Phone Mar Bundy MD Primary Care Provider [phone] Encounter Details Date Type Department Care Team (Latest Contact Info) Description 04/11/1998 Orders Only Jude Allen MD [address] [place] [address] Social History Tobacco Use Types [...] documented as of this encounter Care Teams Zookeeper Relationship Specialty [place] [address] [place] [address] PCP - General 04/14/07 documented as of this encounter
--- OUTSIDE RECORDS SUMMARY | 2024-01-07 07:35 | XMS_ITS | Clinical Summary ---
Author Organization [facility] Address [place], [place] [address] Care Team Providers Care Chief Of Staff Doctor Name Role Phone Pcp, No Primary Care Provider Unavailabl e Allergies Active Allergy Reactions Criticality Noted Date Comments Amitriptyline-Chlordiazepoxi de Hives,Nausea And Vomiting Medium 06/14/2015 Azithromycin Nausea And Vomiting Medium 03/03/2013 Erythromycin Nausea And Vomiting 03/03/2007 Penicillins Rash,Hives High 03/03/2007 Medications Medication Sig Dispensed Refills Start Date End Date Status ibuprofen (ADVIL; MOTRIN) 200 mg tabletIndications:P elvic pain Take 3 Tablets (600 mg) by mouth every 6 hours if needed for Pain (mild pain). 100 Tablet 07/09/2021 Active oxyCODONE 10 mg tablet Take 10 mg by mouth four times daily. 11/05/2021 Active escitalopram oxalate (LEXAPRO) 10 mg tabletIndications:D epression with anxiety Take 1 Tablet (10 mg) by mouth every morning. 90 Tablet 3 08/04/2022 Active norethin morgan-eth estrad-fe, 1.5-30 mg-mcg, (Blisovi Fe 1.5/30, 28,) 1.5 mg-30 mcg (21)/75 mg (7) tabletIndications:M enorrhagia with irregular cycle Take 1 Tablet by mouth once daily. 112 Tablet 2 08/24/2023 Active buprenorphine HCL (SUBUTEX) [address] 8 mg under the tongue. Take 1 tab SUBLINGUALLY 3 TIMES A DAY. Keep under tongue for a full 30 min before eating/drinking. Wait 1-2h before taking oxycodone. Decrease to no more than 12 TO 16mg 24 hours before surgery.* 12/21/2023 Active ondansetron (ZOFRAN ODT) [address] 4 mg on the tongue every 6 hours if needed for Nausea/Vomiting. 08/31/2023 Active docosahexaenoic acid/epa (FISH OIL ORAL) Take by mouth. 12/30/19 24 Discontinu ed(*Patien t states no longer taking) buprenorphine HCL (SUBUTEX) 2 mg subl DISSOLVE ONE TABLET UNDER TONGUE THREE TIMES DAILY. LET DISSOLVE AND HOLD SALIVE UNDER TONGUE 10 MIN. TAKE 1 TO 2 HOURS BEFORE OXYCODONE. DO NOT EAT/DRINK/SMOKE 30 MINS AFTER TAKING MEDICATION* 02/20/2023 12/30/19 24 Discontinu ed(*Medica tion adjustment ) cyclobenzaprine (FLEXERIL) 5 mg tablet TAKE TWO TABLETS BY MOUTH TWICE DAILY* 09/16/2022 12/30/19 24 Discontinu ed(*Patien t states no longer taking) Active Problems Problem Noted Date Diagnosed Date Pap smear for cervical cancer screening 09/13/19 23 Overview (09/12/2022): 07/2022 NIL/HPV Negative Plan: Pap and HPV due 07/2027 Addiction to drug 08/04/2022 Endometriosis determined by laparoscopy 11/29/19 Chronic pelvic pain in female 11/28/2021 Dyspareunia due to medical condition in female 0 11/28/2021 Opioid abuse 07/29/2021 Irritable bowel syndrome 03/03/2014 Resolved Problems Problem Noted Date Diagnosed Date Resolved Date Acute upper respiratory infe ctions of unspecified site 03/04/2007 05/27/2023 Dehydration 03/04/2007 05/27/2023 Encounters Date Type Department Care Team Description 01/01/2024 11:00 AM CDT - 01/01/2024 11:59 PM CDT Hospital Encounter [facility] [address] [place] [address] S/P left knee surgery 01/01/2024 Travel 12/30/2023 2:50 PM CDT Preop Visit [facility] [address] [place] [address] Xiomara Cartagena, Pre-Op Exam (TOTAL LAPROSCOPIC HYSTERECTOMY, BILATERAL SALPINGECTOMY, FULGURATION/EXCISION OF /ENTOMETRIOSIS, CYSTOSCOPY 01/07/24/ [facility] /DR MEDINA /) 12/30/2023 Travel from Last 3 Months Immunizations Name [...] Heart Disease Other 3 maternal great grandmother, [place] Alcoholism Paternal Grandfather Diabetes Paternal Grandfather Postmenopausal [...] Sign Reading Time Taken Comments Blood Pressure 94/67 12/30/2023 2:54 PM CDT Pulse 56 12/30/2023 2:54 PM CDT Temperature 37 ??C (98.6 ??F) 05/27/2023 10: 55 AM TECHNICAL DATA ANALYST Respiratory Rate 18 02/24/2023 5:58 PM TECHNICAL DATA ANALYST Oxygen Saturation 98% 06/19/2023 1:16 PM CDT Inhaled Oxygen Concentration - - Weight 102.3 kg (225 lb 9.6 oz) 12/30/2023 2:54 PM CDT Height 171.8 cm (5' 7.64) 12/30/2023 2:54 PM CD T Body Mass Index 34.67 12/30/2023 2:54 PM CDT Plan of Treatment Health Maintenance Due Date Last Done Comments HIV for age 15-65 2005 Hepatitis C screening for age 18-79 2008 Depression screening for age 12+ 08/05/2023 08/04/2022, 03/17/2022, 01/14/2022, Additional history exists COVID-19 vaccine series ( season) 2023 03/05/2021, 05/17/2020, 04/19/2020 Influenza for age 9-49 11/22/2023 3, 02/23/2003, 02/23/2003 BMI (ht and wt on same day) for age 18+ 12/29/2024 12/30/2023, 06/19/2023, 05/14/2023, Additional history exists Pap test for age 21-65 08/05/2027 3, 08/04/2022, 11/17/2018 (Verified in Care Everywhere or Patient Record), Additional history exists Tetanus booster 11/22/2029 11/23/2019, 08/21, 11/10/2002 Tdap Completed 11/23/2019, 09/06/2009 Pneumococcal series for age 6-64 Aged Out No longer eligible based on patient's age to complete this topic Procedures Procedure Name Priority Date/Time Associated Diagnosis Comments US VENOUS LOWER EXTREMITY LEFT GINNA 01/01/2024 11:54 AM CDT S/P left knee surgery CBC W PLT NO DIFF Routine 12/30/2023 3:3 2 PM CDT Pre-op exam HPV HIGH RISK Routine 08/04/2022 9:45 AM CDT Pap smear for cervical cancer screening from Last 3 Months or Most Recently Relevant to Health Maintenance Results * US VENOUS LOWER EXTREMITY LEFT (01/01/2024 11:54 AM CDT) Anatomical Region Laterality Modality LEGS, LEG L, Abdomen Ultrasound 01/01/2024 4:51 PM CDT Narrative 01/01/2024 4:51 PM CDT For Patients: ??As a result of the Century Cures Act, medical imaging exams and procedure reports are released immediately into your electronic medical record. ??You may view this report before your referring provider. ??If you have questions, please contact your health care provider. Indication: Post left knee surgery Technique: Left lower extremity venous ultrasound utilizing grayscale, color flow and duplex Doppler techniques Comparison: None Findings: Sonographic evaluation of the left lower extremity venous system from the common femoral, partially visualized greater saphenous, through the femoral, popliteal and calf veins demonstrates no echogenic debris, normal compressibility, normal color flow and normal augmented duplex Doppler waveforms. No popliteal cyst. Impression: Negative study. Dictated by Ash García MD @ 01/01/2024 4:51:58 PM (Electronically Signed) Procedure Note Ash García MD - 01/01/2024 For Patients: As a result of the Cures Act, medical imagingexams and procedure reports are released immediately into your electronicmedical record. You may view this report before your referring provider.If you have questions, please contact your health care provider. Indication: Post left knee surgery Technique: Left lower extremity venous ultrasound utilizing grayscale, color flow andduplex Doppler techniques Comparison: None Findings: Sonographic evaluation of the left lower extremity venous system from thecommon femoral, partially visualized greater saphenous, through thefemoral, popliteal and calf veins demonstrates no echogenic debris, normalcompressibility, normal color flow and normal augmented duplex Dopplerwaveforms. No popliteal cyst. Impression: Negative study. Dictated by Ash García MD @ 01/01/2024 4:51:58 PM (Electronically Signed) Xiomara Cartagena DO US * CBC W PLT NO DIFF (12/30/2023 3:32 PM CDT) WHITE BLOOD CELL COUNT 8.8 3.8 - 10.8 Thousand/u L [facility] RED BLOOD CELL COUNT 4.74 3.80 - 5.10 Million/uL [facility] HEMOGLOBIN 13.8 11.7 - 15.5 g/dL [facility] HEMATOCRIT 41.2 35.0 - 45.0 % [facility] MCV 86.9 80.0 - 100.0 fL [facility] MCH 29.1 27.0 - 33.0 pg [facility] MCHC 33.5 32.0 - 36.0 g/dL [facility] Comment: For adults, a slight decrease in the calculated MCHC value (in the range of 30 to 32 g/dL) is most likely not clinically significant; however, it should be interpreted with caution in correlation with other red cell parameters and the patient's clinical condition. RDW 13.0 11.0 - 15.0 % [facility] PLATELET COUNT 235 140 - 400 Thousand/u L [facility] MPV 10.7 7.5 - 12.5 fL [facility] Blood BLOOD SPECIMEN / Unknown 12/30/2023 3:32 PM CDT 12/30/2023 3:33 PM CDT Xiomara Cartagena DO HEMATOLOGY [employer] [facility] [address] [place] [address], [place] [address] [place] [address] * HPV HIGH RISK (08/04/2022 9:45 AM CDT) TYPE 16 Negative Negative 08/08/2022 2:19 PM CDT [facility] [employer] [facility] TYPE 18 Negative Negative 08/08/2022 2:19 PM CDT [facility] OTHER HIGH RISK TYPES Negative Negative 08/08/2022 2:19 PM CDT [facility] Other (Cervical) Non-Blood / Unknown 08/04/2022 9:45 AM CDT 08/05/2022 4:54 PM CDT Narrative [facility] - 08/08/2022 2:19 PM CDT HPV types 16, 18, 31, 33, 35, 39, 45, 51, 52, 56, 58, 59, 66 and 68 DNA were undetectable or below the pre-set threshold. Methodology: Dulce Ciro 4800 HPV Test Belgcia Gleason MD MICROBIOLOGY [facility] [employer] [facility] [address] [place] [address], [place] from Last 3 Months or Most Recently [...] 4:09 PM 03/04/2007 6:08 PM Care Teams Chief Of Staff Doctor Relationship Specialty Start Date End Date Pcp, No . PCP - General 02/27/22
--- OUTSIDE RECORDS SUMMARY | 2024-01-07 07:35 | XMS_ITS | Encounter Summary ---
Author Organization [facility] Address [address] [address] Care Team Providers Care Steamer Tender Name Role Phone Mar Bundy MD Primary Care Provider [phone] Encounter Details Date Type Department Care Team (Latest Contact Info) Description 06/03/1994 Orders Only Nemesio Rodriguez MD [address] [place] [address] Social History Tobacco Use Types Packs/Day Years [...] documented as of this encounter Care Teams Steamer Tender Relationship Specialty [place] [address] [place] [address] PCP - General 04/14/07 documented as of this encounter
--- OUTSIDE RECORDS SUMMARY | 2024-01-07 07:35 | XMS_ITS | Referral Summary ---
Author Organization [facility] Address [address] [place] [id number] Care Team Providers Care Judicial Law Clerk Name Role Phone No Ref-Primary, Physician Primary Care Provider Allergies Active Allergy Reactions Criticality Noted Date [...] 02/2014 Irritable bowel syndrome -- constipation predomi kateiln 03/03/2014 Encounter for routine gynecological examination 03/01/2014 Overview: 2016: Screen pap due. 2012: Pap-> NIL Problem list name updated by automated process. Provider to review Social History Tobacco Use Types Packs/Day Years Used Date Smoking Tobacco: Never Smokeless Tobacco: Never Alcohol Use Standard Drinks/Week Comments No 0 (1 standard drink = 0.6 oz pur e alcohol) Adolescent Education Answer Date Record ed Getting School Help Needed Not on file 08/31 Sex and Gender Information Value Date Recorded Sex Assigned at Not on file Gender Identity Not on file Sexual Orientation Not on file Last Filed Vital Signs Vital Sign Reading Time Taken Comments Blood Pressure 119/89 09/01/2023 2:19 PM CDT Pulse 74 09/01/2023 2:14 PM CDT Temperature 36.2 ??C (97.2 ??F) 09/01/2023 2:14 PM CD T Respiratory Rate 18 09/01/2023 2:14 PM CDT Oxygen Saturation 100% 09/01/2023 2:14 PM CDT Inhaled Oxygen Concentration - - Weight 98.6 kg (217 lb 6 oz) 09/01/2023 2:18 PM CDT Height 170.2 cm (5' 7) 09/01/2023 2:18 PM CDT Body Mass Index 34.05 09/01/2023 2:18 PM CDT Plan of Treatment Not on file Care Teams Judicial Law Clerk Relationship Specialty Start Date End Date No Ref-Primary, Physician PCP - General 09/01/23
--- OUTSIDE RECORDS SUMMARY | 2024-01-07 07:35 | XMS_ITS | Continuity of Care Document ---
Author Organization [facility] Address [address] [address] [place] [address] Phone Care Team Providers Care Event Planning Intern Name Role Phone Cy Ailyn CHARLES Unavailable Unavailable Allergies, Adverse Reactions, Alerts Substance Reaction Status Criticality erythromycin base Nausea/Vomiting Active No Info rmation PENICILLIN HivesHives Active No Information azithromycin Active No Information erythromycin base Active No Informa tion Penicillins Active No Information Medications Medication Instructions Dosage Effective Dates (start - stop) Status Comments omeprazole 40 mg capsule,delayed release take 1 capsule by ORAL route every da 15 min y before a meal - Active omeprazole 40 mg capsule,delayed release take 1 capsule by oral route every day before a meal 40 MG - Active ropinirole 0.5 mg tablet take 1 tablet by oral route every day 0.5 MG - Active Blisovi Fe 1.5/30 (28) 1.5 mg-30 mcg (21)/75 mg (7) tablet take 1 tablet by oral route every day 1.00 tablet - Active Procedures Procedure Date Established Level 3 Ugi Endo; W/bx 1/mx Level Iv-surg Path Gross/micro 22 Established Level 4 New Level 4 Offic/outpt E&m Estab Mod-hi 2 13 Offic/outpt E&m Estab Mod-hi 2 13 Ugi Endo; W/bx 1/mx Level Iv-surg Path Gross/micro 13 Offic/outpt E&m Estab Mod-az 2 13 Colonoscopy Flex; W/remov Les- 13 Level Iv-surg Path Gross/micro 13 Offic/outpt E&m New Mod-hi Routine Serum Collection [id number] Advance Directives Directive Yes / No Effective Date File Name No Information Encounters Encounter Description Practice Location Reason(s) For Visit Diagnoses Date Provider Providers Copied on Encounter [facility], [address] [address], [place], [id number], [place] tel:[phone] [facility] No Information [facility] [address], [place], [id number], [place]. tel:[phone] [facility], [address] [address], [place], [id number], [place] tel:[phone] [facility] Gallbladder polyp 3 [facility]n. [address], [place], [id number], [place]. tel:[phone] Referring Provider: Referral Self, USE FOR SELF REFERRALS. Established Level 3 [facility], [address] [address], [place], [id number], [place] tel:[phone] [facility] GI Symptoms or Concerns (chief complaint) Chronic GERD 2 Akilah Villalta. [address], [place], [id number], [place]. tel:[phone] Referring Provider: Referral Self, USE FOR SELF REFERRALS. [facility], [address] [address], [place], [id number], [place] tel:[phone] [facility] Gallbladder polyp 2 [facility]. [address], [place], [id number], [place]. tel:[phone] [facility], [address] [address], [place], [id number], [place] tel:[phone] [facility] Hiatal herniaGastro-eso phageal reflux disease with esophagitis, without bleedingDiaphrag matic hernia without obstruction or gangrene 2 Eloy Hall. [address], [place], [id number], [place]. tel:[phone] Referring Provider: Referral Self, USE FOR SELF REFERRALS. Established Level 4 [facility], [address] [address], [place], [id number], [place] tel:[phone] [facility] GI Symptoms or Concerns (chief complaint) Epigastric pain 2 Akilah Villalta. [address], [place], [id number], [place]. tel:[phone] Referring Provider: Referral Self, USE FOR SELF REFERRALS. New Level 4 [facility], [address] [address], [place], [id number], [place] tel:[phone] [facility] GI Symptoms or Concerns (chief complaint) RUQ painNauseaEsopha geal spasm 1 [facility] A[facility]n. [address], [address], [place], [id number], [place]. tel:[phone] Referring Provider: Referral Self, USE FOR SELF REFERRALS. [facility], [address] [address], [place], [id number], [place] tel:[phone] [facility] No Information 1 Annabelle Chávez. [address], [place], [id number], [place]. tel:[phone] Offic/outpt E&m Estab Mod-hi 2 [facility], [address] [address], [place], [id number], [place] tel:[phone] [facility] RUQ Pain 3 Leti Salcedo. [address], [address], [place], [id number], [place]. tel:[phone] Offic/outpt E&m Estab Mod-hi 2 [facility], [address] [address], [place], [id number], [place] tel:[phone] [facility] Abdominal pain (chief complaint) Irritable Bowel SyndromePolyp-in kerry/rect/stom-un c Beh 3 Edstrom GL[facility] Do. [address], [facility] [address], [place], [id number], [place]. tel:[phone] Referring Provider: Kathryn Kennedy, [address] [place], [address]. tel:[phone] [facility], [address] [address], [place], [id number], [place] tel:[phone] [facility] Gastritis W/o BleedGastric DiverticulumGast ritis W/o BleedGastric Diverticulum 3 Nimco Bush. [address], [facility] [address], [place], [id number], [place]. tel:[phone] Referring Provider: Kathryn Kennedy, [address] [place], [address]. tel:[phone] Offic/outpt E&m Estab Mod-hi 2 [facility], [address] [address], [place], [id number], [place] tel:[phone] [facility] Abdominal pain (chief complaint) RUQ Pain Aug- 3 Edstrom GL[facility] Do. [address], [facility] [address], [place], [id number], [place]. tel:[phone] Referring Provider: Kathryn Kennedy, [address], [place], [address]. tel:[phone] [facility], [address] [address], [place], [id number], [place] tel:[phone] [facility] Polyp-intes/rect /stom-unc BehAbdominal Pain, UnspecifiedBenig n Neoplasm ColonAbn X-ray GI TractBenign Neoplasm ColonAbdominal Pain, Unspecified 3 Nimco Bush. [address], [facility] [address], [facility] [facility] [place], [id number], [place]. tel:[phone] Referring Provider: Kathryn Kennedy, [email or web address], [place], [address]. tel:[phone] Offic/outpt E&m New Mod-hi [facility], [address] [address], [place], [id number], [place] tel:[phone] [facility] Abdominal pain (chief complaint) RLQ PainConstipation UnspecifiedAbn X-ray GI Tract 2 Nimco Bush. [address] [place] [address], [facility] [address], [facility] [place], [id number], [place]. tel:[phone] Referring Provider: Kathryn Kennedy, [address] [email or web address], [address]. tel:[phone] Family History Family Member Type Diagnosis Age At Onset First degree family history Problem (finding) No Family history of No history of Colon Polyps First degree family history Problem (finding) No history of Crohn's First degree family history Problem (finding) No history of Ulcerative Colitis First degree family history Problem (finding) No history of Cancer, colon Immunizations Vaccine Date Status Comments SARS-COV-2 (COVID-19) vaccin e, mRNA, spike protein, LNP, preservative free, 30 mcg/0.3mL dose administered Note: [facility] bi-direct ional interface ; Source: Other Registry SARS-COV-2 (COVID-19) vaccin e, mRNA, spike protein, LNP, preservative free, 100 mcg or 50 mcg dose administered Note: [facility] bi-direct ional interface ; Source: Other Registry SARS-COV-2 (COVID-19) vaccin e, mRNA, spike protein, LNP, preservative free, 100 mcg or 50 mcg dose administered Note: [facility] bi-direct ional interface ; Source: Other Registry tetanus toxoid, reduced diphtheria toxoid, and acellular pertussis vaccine, adsorbed administered Note: [facility] b i-directional interface ; Source: Other Registry Human Rabies vaccine from [facility] diploid cell culture administered Note: [facility] bi-direc tional interface ; Source: Other Registry Human Rabies vaccine from [facility] diploid cell culture administered Note: [facility] bi-direc tional interface ; Source: Other Registry Human rabies vaccine from Chicken fibroblast culture administered Note: [facility] bi -directional interface ; Source: Other Registry human papilloma virus vaccin e, quadrivalent administered Note: [facility] bi-direct ional interface ; Source: Other Registry Havrix administered Note: [facility] bi-d irectional interface ; Source: Other Registry Havrix administered Note: [facility] bi-d irectional interface ; Source: Other Registry tetanus toxoid, reduced diphtheria toxoid, and acellular pertussis vaccine, adsorbed administered Note: [facility] b i-directional interface ; Source: Other Registry Influenza, seasonal, injectable administe red Note: [facility] bi- directional interface ; Source: Other Registry measles, mumps and rubella v irus vaccine administered Note: [facility] bi-direct ional interface ; Source: Other Registry diphtheria, tetanus toxoids and acellular pertussis vaccine administered Note: [facility] b i-directional interface ; Source: Other Registry [employer] Pediatric administered Note: [facility] bi-directional interface ; Source: Other Registry [employer] Pediatric administered Note: [facility] bi-directional interface ; Source: Other Registry [employer] Pediatric administered Note: [facility] bi-directional interface ; Source: Other Registry diphtheria, tetanus toxoids and pertussis vaccine administered Note: [facility] bi-direct ional interface ; Source: Other Registry Haemophilus influenzae type b vaccine, HbOC conjugate administered Note: [facility] bi-di rectional interface ; Source: Other Registry measles, mumps and rubella v irus vaccine administered Note: [facility] bi-direct ional interface ; Source: Other Registry diphtheria, tetanus toxoids and pertussis vaccine administered Note: [facility] bi-direct ional interface ; Source: Other Registry Haemophilus influenzae type b vaccine, HbOC conjugate administered Note: [facility] bi-di rectional interface ; Source: Other Registry Haemophilus influenzae type b vaccine, HbOC conjugate administered Note: [facility] bi-di rectional interface ; Source: Other Registry diphtheria, tetanus toxoids and pertussis vaccine administered Note: [facility] bi-direct ional interface ; Source: Other Registry diphtheria, tetanus toxoids and pertussis vaccine administered Note: [facility] bi-direct ional interface ; Source: Other Registry Payers Payer name Insurance type Covered constitution party ID Authorparadisea armond(s) [facility] [id number] Social History Type Description Quantity Date Captured Comments Alcohol Use Details Unknown Caffeine Use Details Unknown Tobacco Use Status No Information Smoking Status No Information Sex Female Chief Complaint And Reason For Visit No Information Reason For Referral Reason For Referral No Information Plan Of Treatment Date Type Action Status Referral Ordered: Ultrasound Gallbladder Appointment date/timeframe: 05/16/2022 ordered Referral Ordered: EGD Appointment date/timeframe: 04/24/2021 ordered Referral Ordered: Lipase Appointment date/timeframe: 04/12/2021 ordered Referral Ordered: Hepatic Function Panel Appointment date/timeframe: 04/12/2021 ordered Referral Ordered: Ultrasound Abdomen Appointment date/timeframe: 04/12/2021 ordered History Of Present Illness Encounter Date Complaint History Of Prese nt Illness GI Symptoms or Concerns The sukhjinder ent is a 31-year-old female undergoing a virtual visit followup, informed consent obtained from patient, total of 20 minutes spent.The patient was seen by us previously with reported histories of esophageal spasm, GERD, epigastric discomfort. Subsequently to that, she had an endoscopy, which was normal except for small hiatal hernia, an ultrasound that reported a 4 mm adherent focus which may represent a gallbladder polyp versus adherent sludge. The patient states that she has endometriosis and is scheduled for surgery. She describes that it despite taking omeprazole 40 mg, she gets nocturnal symptoms about once every 2-3 nights where she wakes up with heartburn, regurgitation and choking. She also continues to have these episodes of epigastric pain going through to her back, sharp, usually with eating. She does have some stress anxiety disorder. She is not having any history suggesting esophageal spasms. No dysphagia, change in bowel habits, GI bleed. Workup as m GI Symptoms or Concerns The sukhjinder ent is a 30-year-old female undergoing a virtual visit followup, informed consent obtained from patient, total of 24 minutes spent. The patient was last seen on 03/20/2021 with what she reports she has 2 separate problems i.e. esophageal spasms and epigastric pain. She did have workup about 8 years ago with endoscopy and colonoscopy, which turned out to be normal except for patch of erythema and a small diverticulum in the antrum. Colonoscopy normal. Biopsies for H. pylori negative, normal small-bowel, reactive gastropathy. Last visit, she was scheduled for an ultrasound, which she has not proceeded with yet. She has had a normal ultrasound and HIDA scan some years ago.Today, she described epigastric discomfort that is sharp, aching, may last for hours and may bother her for about a week every month, radiates to her back and a little bit to her sides. It is often after eating, but also while NPO. She does get nausea with this, but no vomiting.She does report e GI Symptoms or Concerns Martina martinez s a 30-year-old female who is a self-referral for 3 weeks of abdominal pain. She is a virtual visit today. The patient describes that she gets shooting pains her stomach is the epigastric region and right upper quadrant there were sharp like pins and needles after eating. Did happen every time after she eats but would it does it is very intense and she has associated nausea and urge to vomit which will dry heave. The sharp pain lasts for about a 1/2 hour and then slowly improved. She has tried Tums with no improvement. Her bowel movements vary from formed to soft which is her baseline. No hematochezia or melena. For the past year she also has these episodes that will occur for a few days to week every month which she will swallow and feels like there is a rock will have pain that radiates down into her stomach in her chest. This has been going on for about a year. She previously has been seen by [facility] back in 2013 with similar symptoms. At that time she had an upper endoscopy with an oval esophagus, mild gastritis normal duodenum with move all small-bowel biopsies and reactive gastropathy with no H pylori. She also had a colonoscopy with random biopsies showing no evidence of acute, chronic or microscopic colitis with 1 adenomatous polyp removed. She recalls having HIDA scan at that time that was normal as well though I do not have that report. Reports mother with history of gallstones. No tobacco or marijuana use. Rare alcohol use. Shehas been taking Ibuprofen daily for pelvic/menstrual pain. Functional Status Date Functional Assessmen t No Information Instructions Date Instruction Additional Infor durga 1. Anti-reflux measu res sent to patient.2. Increase omeprazole to 40 mg p.o. b.i.d. over the next few weeks to months, if the heartburn improves to try decrease to q.a.m. again.3. Proceed with the endometriosis surgery in the recovery phase.4. If these recurrent episodes of epigastric pain do occur, she should contact us. Related to Chronic GERD Gastroesophageal Reflux Disease Related to Chronic GERD Gastroesophageal Reflux Disease Related to Chronic GERD Hiatal Hernia Related to Hiata l hernia 1. Discussed the abo ve entities with patient.2. She will proceed with ultrasound in [place] and send us the report.3. If this is normal, we will proceed with EGD because of heartburn, esophageal spasms, and epigastric discomfort.4. She is seeing therapist for her anxiety.5. Trial of sublingual hyoscyamine p.r.n. during the pain.6. Trial of increasing omeprazole to twice a day. Related to Epigastric pain 1. Obtain liver test s, lipase and abdominal ultrasound. 2. Trial of omeprazole 40 milligrams daily, 30 minutes prior to breakfast. 3. Discussed limiting NSAIDs as able.4. follow-up in 4 weeks. Would recommend HIDA scan and/or upper endoscopy if above workup is unrevealing. Related to RUQ pain Assessments Type Assessment Date No Information Patient Care Teams Name Effective Dates (start - stop) Status Members No Information
--- OUTSIDE RECORDS SUMMARY | 2024-01-07 07:35 | XMS_ITS | Clinical Summary ---
Author Organization [facility] [facility] Address [address] [address] Care Team Providers Care [employer] French Teacher Name Role Phone Mar Bundy MD Primary [...] for each transition of care or referral. [employer] [facility] Allergies Active Allergy Reactions Criticality Noted Date Comments Erythromycin 09/14/2002 Penicillins 03/26/2001 Medications Medication Sig Dispensed Refills Start Date End Date Status ALBUTEROL (PROVENTIL, VENTOLIN) 90MCG/ACT INHALERIndications:U nspecified asthma(493.90) ([facility]) 1-2 puffs every 4 hours as needed, [...] T Respiratory Rate 18 06/10/2004 4:37 PM PALS SPECIALIST Oxygen Saturation 99% 10/27/2004 2:04 PM CDT [...] Additional history exists COVID-19 Vaccine ( season) 2023 05/17/2020, 04/19/2020 Influenza (#1) 2023 03/03/2013, 02/23/2003 Zoster/Shingles (1 of 2) 2040 Hib Completed 08/26/1991, 11/1990, 1990 HepB Completed 01/22/1994, 12/21, 11/19/1992 IPV (Polio) Completed 07/23/1995, 11/21, 1990, Additional history exists HepA Aged Out 03/03/2013, 07/30/2012 No lo nger eligible based on patient's age to complete this topic Infant RSV Aged Out No longer eligi ble based [...] 1:26 PM 01/12/2004 1:26 PM Care Teams High [employer] French Teacher Relationship Specialty [place] [address] [place] [address] PCP - General 04/14/07
--- OUTSIDE RECORDS SUMMARY | 2024-01-07 07:35 | XMS_ITS | Encounter Summary ---
Author Organization [facility] Address [address] [address] Care Team Providers Care Feed Management Advisor Name Role Phone Mar Bundy MD Primary [...] documented as of this encounter Care Teams Feed Management Advisor Relationship Specialty [place] [address] [place] [address] PCP - General 04/14/07 documented as of this encounter
--- OUTSIDE RECORDS SUMMARY | 2024-01-07 07:35 | XMS_ITS | Encounter Summary ---
Author Organization [facility] Address [address] [address] Care Team Providers Care Training Systems Officer Name Role Phone Mar Bundy MD Primary Care Provider [phone] Encounter Details Date Type Department Care Team (Latest Contact Info) Description 01/28/1996 Orders Only Nemesio Rodriguez MD [address] [place] [address] Social History Tobacco Use Types Packs/Day Years [...] documented as of this encounter Care Teams Training Systems Officer Relationship Specialty [place] [address] [place] [address] PCP - General 04/14/07 documented as of this encounter
--- OUTSIDE RECORDS SUMMARY | 2024-01-07 07:35 | XMS_ITS | Encounter Summary ---
Author Organization [facility] Address [address] [place] [address] Care Team Providers Care Cement Mason Helper Name Role Phone Mar Bundy MD Primary Care Provider Encounter Details Date Type Department Care Team (Latest Contact Info) Description 09/22/1994 Orders Only [facility] [address] [place] [address] Social History Tobacco Use Types Packs/Day Years [...] documented as of this encounter Care Teams Cement Mason Helper Relationship Specialty [place] [address] [place] [address] PCP - General 04/14/07 documented as of this encounter
--- OUTSIDE RECORDS SUMMARY | 2024-01-07 07:35 | XMS_ITS | Clinical Summary ---
Author Organization [facility] Address [facility] [place] [address] Care Team Providers Care Customer Sales Consultant Name Role Phone No Ref-Primary, Physician Primary [...] 09/01/2023 2:18 PM CDT Plan of Treatment Health Maintenance Due Date Last Done Comments ADVANCE CARE PLANNING 1990 ANNUAL REVIEW OF HM ORDERS 1990 HIV SCREENING 2005 HEPATITIS C SCREENING 2008 HPV IMMUNIZATION (2 - 3-dose series) 03/31/2013 03/03/2013 YEARLY PREVENTIVE VISIT 06/13/2016 06/14/19 16, 03/03/2014, 01/12/2004, Additional history exists PHQ-2 (once per calendar year) 2023 COVID-19 Vaccine ( season) 2023 INFLUENZA VACCINE (#1) 2023 03/03/2013, 2002 PAP 08/04/2025 08/04/2022 DTAP/TDAP/TD IMMUNIZATION (8 - Td or Tdap) 11/22/2029 11/23/2019, 09/06/2009, 11/10/2002, Additional history exists RSV VACCINE (1 - 1-dose 75+ series) 2065 HEPATITIS B IMMUNIZATION Completed 994, 01/01/1993, 11/19/1992 MENINGITIS IMMUNIZATION Aged Out No l onger eligible based on patient's age to complete this topic Pneumococcal Vaccine: Pediatrics (0 to 5 Years) and At-Risk Patients (6 to 64 Years) Aged Out No longer eligible based on patient's age to complete this topic RSV MONOCLONAL ANTIBODY Aged Out No l onger eligible based on patient's age to complete this topic Care Teams Customer Sales Consultant Relationship Specialty Start Date End Date No Ref-Primary, Physician PCP - General 09/01/23
--- OUTSIDE RECORDS SUMMARY | 2024-01-07 07:35 | XMS_ITS | Encounter Summary ---
Author Organization [facility] Address [address] [address] Care Team Providers Care Sales And Management Trainee Name Role Phone Mar Bundy MD Primary Care Provider Encounter Details Date Type Department Care Team (Latest Contact Info) Description 09/20/1994 Orders Only Jea nCarlos Pacheco MD Social History Tobacco Use Types [...] documented as of this encounter Care Teams Sales And Management Trainee Relationship Specialty [place] [address] [place] [address] PCP - General 04/14/07 documented as of this encounter
--- NOTE | 2024-01-07 08:07 | SUR.PREOP ---
pt unable to supply urine spec., ordered hcg to replace.
[2024-01-07 08:14] LABS: Hemoglobin* 12.5 gm/dL (12.0-16.0)
[2024-01-07 08:29] LABS: Creatinine* 0.7 mg/dL (0.5-1.5); Est. Creatinine Clearance* 111.16; Estimated Glomerular Filt Rate 117 ml/min
[2024-01-07] MEDS: SODIUM CHLORIDE 0.9 % (FLUSH) 10 ML SYRINGE IVF (08:38)
--- NOTE | 2024-01-07 08:55 | W.PM.H&PU ---
History & Physical Update History & Physical Update H&P Reviewed and patient assessed: The following changes are noted below H&P Updates: Had a lower extremity Doppler ordered to rule out DVT at her preoperative visit on 12/30/2023. This was completed last Thursday and was negative.
[2024-01-07 08:57] LABS: HCG Qualitative Serum* Negative (Negative)
[2024-01-07] MEDS: LACTATED RINGERS 1000 ML 1,000 ML 100 ML IV ×2 (09:28→13:06)
[2024-01-07] MEDS: CEFAZOLIN 2 GM INJ IVP (10:03)
[2024-01-07] MEDS: BUPIVACAINE 0.25% 30 ML INJECTION (10:34)
[2024-01-07] MEDS: LIDOCAINE 1 % PF 30 ML INJECTION (10:34)
--- NOTE | 2024-01-07 10:43 | W.PM.NB ---
Nerve Block Nerve Block Time Seen by Provider: 09:45 Date Seen: 01/07/24 Type of block requested by surgeon for post-operative analgesia: TAP Side: bilateral Time out performed: Yes Verification of patient name: Yes Verification of date of : Yes Site marking: site marked Name of person performing procedure: Peter Robbins Continuous monitoring Was continuous monitoring of O2 sat, B/P, cardiac exercise physiologist, recorded every 15 minutes?: Yes Procedure Checklist: sterile prep, needles and gloves Ultrasound guided. Images saved: Yes Medications given in 5ml increments after negative aspiration: Marcaine %: 0.25 mL: 30 Needle gauge: 20 and Exparel mL: 10 Needle gauge: 20 Patient tolerated procedure well: Yes Additional comments: Injected in 5 mL increments after negative aspiration Block Charges Block Charge (with Pro Fee): TAP Bilateral Use of Ultrasound Machine for Block: Yes- US Guidance/pain block
[2024-01-07] MEDS: KETOROLAC 30 MG/ML inj IVP (11:53)
--- NOTE | 2024-01-07 12:19 | W.ANESCHARGE ---
Anesthesia Charges Start Date/Time Anesthesia Start Date: 01/07/24 Anesthesia Start Time: 09:28 Stop Date/Time Anesthesia Stop Date: 01/07/24 Anesthesia Stop Time: 12:16
[2024-01-07] MEDS: fentaNYL 100 MCG/2 ML inj 50 MCG IVP ×2 (12:25→12:35)
[2024-01-07] MEDS: HYDROmorphone 0.5 mg/0.5 ml inj IVP ×3 (12:42→13:13)
--- NOTE | 2024-01-07 12:55 | SUR.PHASEI ---
Consult with anesthesia after Fentanyl 100 and 0.5 ml of Dilaudid. Second dose of Dilaudid given. MASTER TECHNICIAN giving Ketamine. Patient states her at home pain level prior to surgery is a 7 out of 10. We discussed trying to get her pain level to a 9 in PACU.
--- NOTE | 2024-01-07 13:07 | SUR.PHASEI ---
Discussion with Anesthesia, okay to give a total of1.5 ml of Hydromorphone if needed. Patient takes a lot of opiates to be at her base line pain score of 7 at home.
--- NOTE | 2024-01-07 13:18 | SUR.PHASEI ---
Pain level is still a 10, Did not get to a level 9 which was the goal for PACU. Patient calm, breathing is relaxed. No moaning any longer. Patient meets criteria to go to Med Surg unit. Pain management will need to be on going for this patient.
[2024-01-07] MEDS: HYDROmorphone 0.5 mg/0.5 ml inj 1 MG IVP ×2 (14:50→16:20)
[2024-01-07] MEDS: BUPRENORPHINE 8 MG SUBLINGUAL ×2 (15:40→21:57)
--- NOTE | 2024-01-07 16:10 | P.IMCN_ITS ---
Date of Consult Patient: [facility] Patient Consult date: 01/07/24 Requesting Physician: [facility] Primary Care Provider: Xiomara Cartagena, DO Consult Narrative Reason for consult: Assist with post-op pain management, with known chronic pain/opioid use Narrative: Martina Au is a 33 year old woman with endometriosis who presents today for an elective laparoscopic hysterectomy with Dr. Devine. Patient has chronic pain for which she has seen in pain clinic with current medications as specified below. Discussions have been held with the pain clinic physicians about how to manage postoperative pain optimally. Recommendations have included the following: Decreased the Buprenorphine dose from daily to a total of 8 mg daily; Ice pack therapy to incision sites; Increase the oxycodone dose from 50 mg daily to 80 mg daily at time of discharge; Optimize non opioid means of helping address the pain including ice pack, schedule acetaminophen, use of ketorolac, gabapentin, and cyclobenzaprine; For the next 24 hours or so will utilize hydromorphone 1 mg IV q.4 hours p.r.n. for pain - may need to increase this dose. During the perioperative time patient received very large doses of opioids, ketamine, ketorolac and other medications. She also received topical analgesia. Pain is only gradually responding to various intervention efforts at this junctu re. Patient satisfied that we are trying at this juncture. Review of Systems Status of ROS: Reports: 6 or more systems reviewed and unremarkable except as noted in History and below Narrative: Postop pain is her main concern. [facility] Medical History Pain in pelvis ?R10.2 - Pelvic and perineal pain (ICD-10) Opioid dependence ?F11.20 - Opioid dependence, uncomplicated (ICD-10) IBS (irritable bowel syndrome) ?K58.9 - Irritable bowel syndrome without diarrhea (ICD-10) Trigger point ?M79.10 - Myalgia, unspecified site (ICD-10) Hiatal hernia ?K44.9 - Diaphragmatic hernia without obstruction or gangrene (ICD-10) History of kidney stones ?Z87.442 - Personal history of urinary calculi (ICD-10) History of ovarian cyst ?Z87.42 - Personal history of other diseases of the female genital tract (ICD-10) Surgical History History of dental surgery ?Z92.89 - Personal history of other medical treatment (ICD-10) H/O laparoscopy ?Z98.890 - Other specified postprocedural states (ICD-10) History of surgical removal of ganglion cyst ?Z98.890 - Other specified postprocedural states (ICD-10) History of tonsillectomy ?Z90.89 - Acquired absence of other organs (ICD-10) Family History Mother High blood pressure Multiple sclerosis Grandfather Diabetes Aunt Leukemia Other Colon cancer High cholesterol Osteoporosis Ovarian cancer Social History What is your current living situation?: I presently have a place to live Problems where you live: no known problems In the past 12 months, utilities in danger of being shut off: no In past 12 months, lack of transportation kept you from medical appts, meetings, work, or getting things needed for daily living: no In the past 12 mos, have been you worried that your food would run out before you had money to buy more?: never true In the past 12 mos, the food you bought just didn't last and you didn't have money to buy more?: never true Smoking Status: Never smoker Second hand tobacco smoke exposure: No How often do you have a drink containing alcohol: never AUDIT-C Alcohol total score: 0 Non-prescribed substance use: opiods/painkillers Caffeine: No How often does anyone, including family, friends and others, physically hurt you : never How often does anyone, including family, friends and others, insult or talk down to you: never How often does anyone, including family, friends and others, threaten you with harm: never How often does anyone, including family, friends and others, scream or curse at you: never service: No Meds Home Medications and Allergies Home Medications ?Medication ?Instructions ?Recorded ?Confirmed ?Type ibuprofen 800 mg tablet 800 mg PO Q8H 04/21/22 01/07/24 History oxycodone 10 mg tablet 10 mg PO Q6H 04/21/22 01/07/24 History norethindrone 1.5 mg-ethinyl 1 tab PO DAILY 06/17/23 01/07/24 History estradiol 30 mcg(21)/iron 75 mg(7) tablet (Blisovi Fe 1.5/30 (28)) escitalopram oxalate 10 mg tablet 10 mg PO QDAY 11/24/23 01/07/24 History (Lexapro) buprenorphine HCl 8 mg sublingual 8 mg sublingual 3XD 01/07/24 01/07/24 History tablet Allergies Allergy/AdvReac Type Severity Reaction Status Date / Time azithromycin Allergy Mild Unknown Verified 11/24/23 08:19 Penicillins Allergy Mild Hives Verified 11/24/23 08:19 erythromycin base Allergy Unknown Unknown Verified 11/24/23 08:19 amitriptyline Allergy Rash Verified 01/04/24 11:09 chlordiazepoxide Allergy Rash Verified 01/04/24 11:09 Exam Narrative: Exam Narrative: Examined patient in her hospital room. She is teary-eyed. Able to speak with me. Alert and oriented x4. Articulate and cooperative. Able to move all 4 extremities. Heart tones with regular rhythm. Lungs clear to auscultation. Abdomen with only rare intermittent bowel sounds at this time. No focal motor neurologic deficits. Const: Vital Signs, click to edit/add: Vital Signs - 24 hr 01/07/24 08:20 01/07/24 12:13 01/07/24 12:15 Temperature 97.8 F 97.3 F L Pulse Rate 63 96 98 Respiratory Rate 20 22 20 Blood Pressure 110/66 120/84 140/81 H Pulse Oximetry 96 99 98 Oxygen Delivery Me thod Room Air Room Air 01/07/24 12:20 01/07/24 12:25 01/07/24 12:30 Temperature Pulse Rate 91 85 88 Respiratory Rate 20 16 16 Blood Pressure 123/85 100/78 94/75 Pulse Oximetry 99 96 98 Oxygen Delivery Me thod Room Air Room Air Room Air 01/07/24 12:35 01/07/24 12:40 01/07/24 12:45 Temperature Pulse Rate 88 88 83 Respiratory Rate 16 16 16 Blood Pressure 110/60 119/74 112/74 Pulse Oximetry 97 95 94 Oxygen Delivery Me thod Room Air Room Air Room Air 01/07/24 12:50 01/07/24 12:55 01/07/24 13:00 Temperature 98.2 F Pulse Rate 82 81 82 Respiratory Rate 16 16 16 Blood Pressure 122/72 114/69 117/75 Pulse Oximetry 95 95 99 Oxygen Delivery Me thod Room Air Room Air Room Air 01/07/24 13:05 01/07/24 13:10 01/07/24 13:15 Temperature Pulse Rate 82 85 85 Respiratory Rate 16 16 16 Blood Pressure 114/67 114/74 110/73 Pulse Oximetry 96 97 94 Oxygen Delivery Me thod Room Air Room Air Room Air 01/07/24 13:30 01/07/24 13:45 01/07/24 14:00 Temperature 98.3 F 98.3 F 98.2 F Pulse Rate 82 83 83 Respiratory Rate 16 16 16 Blood Pressure 125/74 128/73 132/89 Pulse Oximetry 99 99 99 Oxygen Delivery Me thod Room Air Room Air Room Air 01/07/24 14:15 01/07/24 14:30 01/07/24 15:00 Temperature 98.2 F 98.4 F 98.4 F Pulse Rate 86 84 83 Respiratory Rate 16 16 16 Blood Pressure 132/89 134/77 142/89 H Pulse Oximetry 99 99 95 Oxygen Delivery Me thod Room Air Room Air Room Air Labs Labs: Short CBC 01/07/24 Range/Units 08:06 Hgb 12.5 (12.0-16.0) gm/dL BMP 01/07/24 08:06 Creatinine 0.7 Assessment and Plan Assessment and plan (1) Endometriosis: Status: Chronic (2) Postoperative pain: Problem comment: - decreased buprenorphine dose to 4 mg twice daily, per pain clinic - increase oxycodone does from 10 mg 5 times daily to 15 mg 6 times daily in the hospital and at time of discharge 15 mg 5 times daily - hydromorphone 1 mg IV q.4 hours - acetaminophen 650 mg q.6 hours - postop ketorolac IV, may use for a maximum of 5 days - gabapentin 300 mg twice daily - cyclobenzaprine 10 mg t.i.d. p.r.n. for muscle spasm - optimize ice pack therapy and other modalities - consider additional adjustments if warranted Status: Acute (3) Chronic neck and back pain: Status: Acute (4) Chronic pelvic pain in female: Status: Acute (5) Opioid dependence: Problem comment: [facility] 06-16-23: Bup 8mg TID, Oxy 10mg 5 times/day Status: Acute Plan 1. Reviewed impression with patient and her family 2. Answered their questions 3. They are agreeable with above stated plans and recommendations at this time Total Time Spent Total Time Spent: 50 minutes
--- NOTE | 2024-01-07 16:16 | P.GYNPRC_ITS ---
Procedure Note Date of procedure: 01/07/24 Will [facility] bill your pro fee for this procedure?: Yes Pre-op diagnosis: Chronic pelvic pain History of laparoscopy proven endometriosis Post-op diagnosis: Chronic pelvic pain No visible endometriosis Procedure: Total laparoscopic hysterectomy with bilateral salpingectomy, cystoscopy Anesthesia: GETA Complications: None Surgeon: Kitty Devine MD Laminated Plastics Assembler And Gluer: Latasha López Estimated blood loss (mL): 50 IV fluids (mL): 800 Urine Output (mL): 600 Pathology: specimen obtained, sent to pathology (uterus with bilateral tubes) Condition: stable Disposition: PACU Findings: 1. Upon pelvic exam under anesthesia, the cervix and vagina were normal in appearance. Uterus was mobile and retroverted, of normal size and texture. There were no palpable adnexal masses. 2. Upon laparoscopy, survey of the upper abdomen revealed a normal appearance to the inferior edge of the liver, gallbladder and stomach. Bowels were grossly normal appearance, as was the appendix. There was a small band of filmy and omental adhesions in the right lower quadrant of the abdomen. Survey of the pelvis revealed normal appearance to the uterus. Bilateral tubes and ovaries were normal in appearance. The cul-de-sac and bladder reflection were normal in appearance. 3. Upon cystoscopy, bilateral ureteral jets were noted at the end of the procedure and no bladder injury was seen. 4. Uterine weight was 92 g Procedure Description: Patient was taken to the operating room with IV running. She received cefazolin in preoperative prophylaxis. She was positioned in dorsal lithotomy position with her legs fully supported in Yellofin stirrups. General anesthesia was administered. She was prepped and draped in the usual sterile fashion. Pelvic exam under anesthesia was performed for the above-noted findings. Speculum was inserted. Cervix visualized and grasped along its anterior lip with a single-tooth tenaculum. Cervix was dilated with Hegar dilators to accomm odate the VCare uterine manipulator. A small-sized colpotomizer cup was selected. The tip of the uterine manipulator was inserted through the cervix into the uterine cavity and the balloon was inflated. The speculum was removed. The colpotomy cup was advanced, surrounding the cervix, and the proximal occluder was moved up along the shaft of the VCare and fixed in place. Paez catheter was placed. Patient's legs were then placed in neutral position. Attention was turned to patient's abdomen. Infraumbilical area was infiltrated with a small amount of Marcaine. A 5 mm infraumbilical incision was made with a scalpel and carried down to the underlying layer of fascia with the hemostat. 5 mm camera was placed within the 5 mm Fios Kii trocar, and advanced under direct visualization through the anterior abdominal wall into the peritoneal cavity, while tenting up the anterior abdominal wall. The trocar was removed. The balloon was inflated, holding the port in place. Pneumoperitoneum was achieved. Survey of the abdomen and pelvis revealed the above-noted findings. Three additional port sites were created. The first was in the patient's left lower quadrant, just superomedial to the left ASIS. The second was a hand's breadth superior to and slightly medial to the first. The third was in the patient's right lower quadrant, just superomedial to the right ASIS. An 11 mm incision was made in the left lower quadrant, and a 5 mm incision was made at the other 2 sites, after assuring that large vessels were out of harm's way. A 10 mm Fios Kii port was inserted at the left lower quadrant site, and a 5 mm Fios Kii port at each of the other 2 sites, under direct visualization and without complication. The balloon on each of the four ports was inflated, holding each in place. Attention was first turned to the left fallopian tube, which was divided from the mesosalpinx, using the LigaSure bipolar cautery device, proceeding laterally to medially, and the tube was amputated at the left uterine cornua. This was removed through the port site and sent to pathology. This procedure was repeated on the patient's right side, and the right fallopian tube was also amputated at the cornua and removed from the patient's abdomen. This was also sent to pathology for further analysis. The left round ligament was cauterized and transected with the Thunderbeat device. The utero-ovarian ligament was cauterized and transected, and the remnants of the right broad ligament were cauterized and transected between these two structures. The bladder flap was created on the patient's left side, moving laterally to medially. The left uterine artery was cauterized and transected with the Thunderbeat device. Using the colpotomizer cup as a guide, the peritoneum and underlying stroma was dissected off the anticipated site of colpotomy over the posterior vaginal fornix. Attention was then turned to the right side of the uterus, where the right round ligament was cauterized and transected with the LigaSure device. The right utero-ovarian ligament was cauterized and transected, and the remnants of the right round ligament were cauterized and transected between these two structures. The bladder flap was created on the patient's right side, and dissection was carried laterally to medially, meeting the dissection where it had left off from the patient's right side. The right uterine artery was cauterized and transected with the Thunderbeat device. The bladder reflection was moved well below the colpotomizer cup anteriorly. The vaginal fornix was then entered posteriorly with monopolar cautery, using the colpotomizer cup as a guide. This device was moved along the circumference of the colpotomizer cup, until the uterus and cervix were freed from their at tachments to the pelvis. The uterus was pulled into the patient's vagina, maintaining the pneumoperitoneum. The vaginal cuff was closed with a series of [id number] sutures of 0 Vicryl. These sutures were placed and tied intracorporeally. Ports were left in place but all instruments were removed and pneumoperitoneum was released. Patient's legs were placed back in lithotomy position. The uterus was removed from the vagina and was sent to pathology for further analysis. The Paez catheter was removed from the bladder, and the cystoscope was assembled with saline inflow, outflow, and light cord in place. The patient was given IV sodium fluorescein prior to the cystoscopy. Cystoscope was advanced through the urethra into the bladder, and survey of the mucosa revealed a normal appearance. The bladder dome was intact. Bilateral ureteral jets were noted. Cystoscope was removed and Paez catheter replaced. Patient's legs were again placed in neutral position. Insufflator was reattached to the port and pneumoperitoneum again achieved. Survey of the pelvis revealed hemostasis. This small band of adhesions in the right lower quadrant of the abdomen was lysed with the LigaSure device. The 11 mm Fios Kii port in the left lower quadrant was removed after balloon on the port was deflated. The Christian-Zainab laparoscopic closure device was inserted through this port. With the help of this device, the fascia was closed with a single suture of 0-Vicryl. Procedure was deemed complete. The balloons of all remaining port sites were deflated, and all ports were removed after pneumoperitoneum was released. The skin of each port site was closed in a subcuticular fashion with 4 0 Monocryl. Surgical glue was applied above this. Postoperative debrief was verbalized with OR staff, including a verification of pathology specimens to be sent as described above. Patient tolerated procedure well and was taken to recovery area in stable condition.
[2024-01-07] MEDS: OXYCODONE 5 MG TABLET 15 MG PO ×2 (18:08→23:54)
[2024-01-07] MEDS: ACETAMINOPHEN 325 MG TABLET 650 MG PO ×2 (18:08→22:02)
[2024-01-07] MEDS: hydrOXYzine pamoate 25 MG CAPSULE PO ×2 (19:27→23:55)
[2024-01-07] MEDS: GABAPENTIN 300 MG CAPSULE PO (21:56)
[2024-01-07] MEDS: SENNOSIDES/DOCUSATE TABLET 1 TAB PO (21:57)
[2024-01-07] MEDS: ESCITALOPRAM 10 MG TABLET PO (21:57)
--- NOTE | 2024-01-07 22:28 | PC.NURSE ---
Shift Note: Pt tearful and crying in bed with family at bedside most of the afternoon. She consistently rated her pain 10/10 despite pharmacological interventions, ice packs, repositioning, and padding/splinting with pillows. 4 lap sites intact and SKI TOW OPERATOR without drainage. BS present/hypoactive. Pt denies flatus. Paez is patent and draining. Advanced to regular diet without difficulty, pt has good fluid intake and urine output. Moving well with SBA, she ate dinner in her chair and ambulated approx 100ft in the hallway before HS. S/o at bedside this evening.
[2024-01-07] MEDS: SIMETHICONE 80 MG TAB.CHEW 160 MG PO (23:53)
[2024-01-08 03:35] VITALS: BP 105/67; PULSE 65; RESP 16; TEMP 37.4; O2SAT 97
[2024-01-08 06:23] LABS: Hemoglobin* 11.1 gm/dL (12.0-16.0)
[2024-01-08 06:35] LABS: Creatinine* 0.6 mg/dL (0.5-1.5); Est. Creatinine Clearance* 129.69; Estimated Glomerular Filt Rate 121 ml/min
--- NOTE | 2024-01-08 06:57 | PC.NURSE ---
END OF SHIFT NOTE: UNEVENTFUL SHIFT. PT SLEPT WELL DURING HS. SIGNIFICANT OTHER-LINN AT PT'S BEDSIDE PROVIDING SUPPORT. PT DENIES CP, SOB, N/V. REPORTS ABD PAIN 5-9/10 WITH RELIEF FROM ACTIVE ICE, SPLINTING, REPOSITIONING, AND PRN MEDICATION. DIAMOND REMOVED THIS MORNING- AWAITING VOID. ABD LAP SITES X4 MERLYN.
[2024-01-08 08:18] VITALS: BP 109/68; PULSE 76; RESP 16; TEMP 36.8; O2SAT 96
[2024-01-08] MEDS: BUPRENORPHINE 8 MG SUBLINGUAL ×2 (08:28→23:08)
[2024-01-08] MEDS: ACETAMINOPHEN 325 MG TABLET 650 MG PO ×3 (08:29→22:06)
[2024-01-08] MEDS: SENNOSIDES/DOCUSATE TABLET 1 TAB PO ×2 (08:29→22:07)
[2024-01-08] MEDS: GABAPENTIN 300 MG CAPSULE PO ×2 (08:29→22:06)
[2024-01-08] MEDS: OXYCODONE 5 MG TABLET 15 MG PO ×4 (08:30→22:07)
--- NOTE | 2024-01-08 08:53 | P.GYNPN_ITS ---
CERTIFIED ORTHOTIST PRACTICE MANAGER - A/P Assessment and plan (1) Endometriosis: Status: Chronic (2) Postoperative pain: Problem details: - decreased buprenorphine dose to 4 mg twice daily, per pain clinic - increase oxycodone does from 10 mg 5 times daily to 15 mg 6 times daily in the hospital and at time of discharge 15 mg 5 times daily - hydromorphone 1 mg IV q.4 hours: Planning on trying to decrease use of IV pain medication today. - acetaminophen 650 mg q.6 hours - postop ketorolac IV, may use for a maximum of 5 days - gabapentin 300 mg twice daily - cyclobenzaprine 10 mg t.i.d. p.r.n. for muscle spasm - optimize ice pack therapy and other modalities - consider additional adjustments if warranted - appreciate the hospitalist's input. - encouraged ambulation Status: Acute (3) Chronic neck and back pain: Status: Acute (4) Chronic pelvic pain in female: Status: Acute (5) Opioid dependence: Problem details: [facility] 06-16-23: Bup 8mg TID, Oxy 10mg 5 times/day Status: Acute Postoperative Procedures: Procedures Operation Date: 01/07/24 09:10 Actual Procedure Side Surgeon p Total Laparoscopic Hysterectomy, Bilateral Salpingectomy, Cystoscopy Bilateral Kitty Devine MD Postoperative status: marginal pain control Postoperative plan: ambulate, advance diet and voiding trials Time Spent With Patient Time with patient: less than 15 minutes CERTIFIED ORTHOTIST PRACTICE MANAGER- PN:Subj Post-Op Subjective Time Seen by Provider: 08:53 Date Seen: 01/08/24 Post Operative Details: Post-operative day number 1: status post total laparoscopic hysterectomy, bilateral salpingectomy and diagnostic cystoscopy for chronic pelvic pain and dysmenorrhea. The patient has been having difficulty with pain control. She is on chronic narcotics (oxycodone 10mg PO 5x/day) and buprenorphine and is a patient of [facility] clinic for these medications. Her Paez catheter was discontinued this morning, she has not urinated yet. She was out of bed in her room yesterday evening but has not been out of bed today. She is rating her pain 6/10 when lying in bed still. She is currently getting oxycodone 15 mg p.o. every 4 hours, Dilaudid 1 mg IV every hour p.r.n., gabapentin 300 mg b.i.d., cyclobenzaprine 10 mg t.i.d., ketorolac 30 mg IV every 6 hours and Vistaril 25-50 mg 4 times a day p.r.n. planning on staying overnight 1 more night for pain control. She also states that she feels somewhat bloated and has not passed gas. I encouraged ambulation. Subjective: pain not well controlled CERTIFIED ORTHOTIST PRACTICE MANAGER-PN: Obj Exam Physical Exam: Vital signs: Temp Pulse Resp BP Pulse Ox O2 Del Method 98.3 F 76 16 109/68 96 Room Air 01/08/24 08:18 01/08/24 08:18 01/08/24 08:18 01/08/24 08:18 01/08/24 08:18 01/08/24 08:18 Narrative: General: Pleasant, , well groomed woman in no acute distress. Vital signs: Included in her electronic medical record. Heart: Regular rate and rhythm without gallop, rub or murmur. Chest: Clear to auscultation bilaterally. Abdomen: Moderately distended, nontender to palpation throughout with normal bowel sounds. No CVA or flank tenderness. Incisions: All clean, dry intact with sutures and skin adhesive gel. Extremities: No pain or edema. Urinary Catheter Management: Urethral: Cath placed during this visit: no CERTIFIED ORTHOTIST PRACTICE MANAGER - PN: Obj Data Labs Labs: Laboratory Results - last 24 hr 01/07/24 01/08/24 08:06 06:02 Hgb 11.1 L Creatinine 0.6 Estimated Creat Clear 129.69 Estimated GFR 121 HCG, Qual Negative Blood Type O Positive Antibody Screen NEGATIVE
[2024-01-08] MEDS: hydrOXYzine pamoate 25 MG CAPSULE PO ×2 (09:37→18:10)
--- NOTE | 2024-01-08 10:10 | P.IMPN_ITS ---
Progress Note: A&P Assessment and plan (1) Endometriosis: Problem details: : Dr. Devine, [facility], status post total laparoscopic hysterectomy, bilateral salpingectomy and diagnostic cystoscopy for chronic pelvic pain and dysmenorrhea Status: Chronic (2) Postoperative pain: Problem details: - decreased buprenorphine dose to 4 mg twice daily, per pain clinic - increase oxycodone does from 10 mg 5 times daily to 15 mg 6 times daily in the hospital and at time of discharge 15 mg 5 times daily - hydromorphone 1 mg IV q.4 hours: Planning on trying to decrease use of IV pain medication today. - acetaminophen 650 mg q.6 hours - postop ketorolac IV, may use for a maximum of 5 days - gabapentin 300 mg twice daily - cyclobenzaprine 10 mg t.i.d. p.r.n. for muscle spasm - optimize ice pack therapy and other modalities - hydroxyzine 25 mg po q 4 hours as needed for pain - consider additional adjustments if warranted - encouraged ambulation - minimum of 6 times daily Status: Acute (3) Chronic neck and back pain: Status: Acute (4) Chronic pelvic pain in female: Status: Acute (5) Opioid dependence: Problem details: [facility] 06-16-23: Bup 8mg TID, Oxy 10mg 5 times/day Status: Acute Plan 1. Reviewed impression and plan with patient and her significant other. 2. Answered their questions to their satisfaction. 3. They are agreeable with stated plans and recommendations. 4. Hospitalists will continue to support so long as AUTO WHEEL ALIGNMENT SPECIALIST determine that patient requires hospital care and support. Time Spent With Patient Total time spent: 20 minutes Subjective Date Seen: 01/08/24 Interval history: Post operative day 1. Pain difficult to control initially yesterday, but better control achieved by night time and slept much of the night without additional analgesia measures. Tolerating gradual increase in activity level. Exam Narrative: Exam Narrative: Appears comfortable, no acute distress. Laying in hospital bed. Lungs clear to auscultation. Heart tones with regular rhythm, nl S1S2. Abd benign. Const: Vital Signs, click to edit/add: Vital Signs - 24 hr 01/07/24 12:13 01/07/24 12:15 01/07/24 12:20 Temperature 97.3 F L Pulse Rate 96 98 91 Pulse Rate [Right Pulse Oximeter] Respiratory Rate 22 20 20 Blood Pressure 120/84 140/81 H 123/85 Blood Pressure [Le ft Arm] Blood Pressure [Ri ght Arm] Pulse Oximetry 99 98 99 Oxygen Delivery Me thod Room Air Room Air 01/07/24 12:25 01/07/24 12:30 01/07/24 12:35 Temperature Pulse Rate 85 88 88 Pulse Rate [Right Pulse Oximeter] Respiratory Rate 16 16 16 Blood Pressure 100/78 94/75 110/60 Blood Pressure [Le ft Arm] Blood Pressure [Ri ght Arm] Pulse Oximetry 96 98 97 Oxygen Delivery Me thod Room Air Room Air Room Air 01/07/24 12:40 01/07/24 12:45 01/07/24 12:50 Temperature Pulse Rate 88 83 82 Pulse Rate [Right Pulse Oximeter] Respiratory Rate 16 16 16 Blood Pressure 119/74 112/74 122/72 Blood Pressure [Le ft Arm] Blood Pressure [Ri ght Arm] Pulse Oximetry 95 94 95 Oxygen Delivery Me thod Room Air Room Air Room Air 01/07/24 12:55 01/07/24 13:00 01/07/24 13:05 Temperature 98.2 F Pulse Rate 81 82 82 Pulse Rate [Right Pulse Oximeter] Respiratory Rate 16 16 16 Blood Pressure 114/69 117/75 114/67 Blood Pressure [Le ft Arm] Blood Pressure [Ri ght Arm] Pulse Oximetry 95 99 96 Oxygen Delivery Me thod Room Air Room Air Room Air 01/07/24 13:10 01/07/24 13:15 01/07/24 13:30 Temperature 98.3 F Pulse Rate 85 85 82 Pulse Rate [Right Pulse Oximeter] Respiratory Rate 16 16 16 Blood Pressure 114/74 110/73 125/74 Blood Pressure [Le ft Arm] Blood Pressure [Ri ght Arm] Pulse Oximetry 97 94 99 Oxygen Delivery Me thod Room Air Room Air Room Air 01/07/24 13:45 01/07/24 14:00 01/07/24 14:15 Temperature 98.3 F 98.2 F 98.2 F Pulse Rate 83 83 86 Pulse Rate [Right Pulse Oximeter] Respiratory Rate 16 16 16 Blood Pressure 128/73 132/89 132/89 Blood Pressure [Le ft Arm] Blood Pressure [Ri ght Arm] Pulse Oximetry 99 99 99 Oxygen Delivery Me thod Room Air Room Air Room Air 01/07/24 14:30 01/07/24 15:00 01/07/24 15:00 Temperature 98.4 F 98.4 F Pulse Rate 84 83 Pulse Rate [Right Pulse Oximeter] 85 Respiratory Rate 16 16 16 Blood Pressure 134/77 142/89 H Blood Pressure [Le ft Arm] Blood Pressure [Ri ght Arm] Pulse Oximetry 99 95 Oxygen Delivery Me thod Room Air Room Air 01/07/24 15:30 01/07/24 16:00 01/07/24 17:00 Temperature 98.2 F Pulse Rate 85 84 88 Pulse Rate [Right Pulse Oximeter] Respiratory Rate 16 16 16 Blood Pressure 141/89 H 136/92 H 138/100 H Blood Pressure [Le ft Arm] Blood Pressure [Ri ght Arm] Pulse Oximetry 96 95 95 Oxygen Delivery Me thod Room Air Room Air Room Air 01/07/24 18:00 01/07/24 19:00 01/07/24 23:40 Temperature 98.8 F 98 F Pulse Rate 98 82 Pulse Rate [Right Pulse Oximeter] 80 Respiratory Rate 16 16 16 Blood Pressure 119/62 118/73 Blood Pressure [Le ft Arm] Blood Pressure [Ri ght Arm] Pulse Oximetry 95 96 Oxygen Delivery Me thod Room Air Room Air 01/07/24 23:40 01/08/24 03:35 01/08/24 08:18 Temperature 99.6 F 99.3 F 98.3 F Pulse Rate Pulse Rate [Right Pulse Oximeter] 80 65 76 Respiratory Rate 16 16 16 Blood Pressure Blood Pressure [Le ft Arm] 109/68 Blood Pressure [Ri ght Arm] 110/56 L 105/67 Pulse Oximetry 97 97 96 Oxygen Delivery Me thod Room Air Room Air Room Air Labs Labs: Laboratory Results - last 24 hr 01/08/24 06:02 Hgb 11.1 L Creatinine 0.6 Estimated Creat Clear 129.69 Estimated GFR 121
[2024-01-08] MEDS: IBUPROFEN 400 MG TABLET PO ×2 (12:59→18:06)
[2024-01-08 16:00] VITALS: BP 111/70; PULSE 76; RESP 16; TEMP 36.9; O2SAT 97
[2024-01-08 17:29] LABS: Hemoglobin* 11.7 gm/dL (12.0-16.0)
[2024-01-08 17:46] LABS: Creatinine* 0.7 mg/dL (0.5-1.5); Est. Creatinine Clearance* 111.16; Estimated Glomerular Filt Rate 117 ml/min
--- NOTE | 2024-01-08 18:59 | PC.NURSE ---
Shift note (4127-2145) The abdominal lap sites x4 were glued and intact; bowel sounds hypoactive; the pt has been denying nausea or vomiting. She ate late lunch at 50%; and didn't eat dinner stating she just ate. Denied passing flatus. The pt was c/o 9/10 abdominal pain PRN pain medication given and scheduled pain medication given as ordered ; with some relief; the pt was ambulating in the gupta; tolerated the activity. Adequate urine out put; see I's and o's. The pt has been using abdominal binder
[2024-01-08 19:00] VITALS: BP 104/68; PULSE 68; RESP 16; TEMP 36.9; O2SAT 96
[2024-01-08] MEDS: ESCITALOPRAM 10 MG TABLET PO (22:07)
[2024-01-08 23:00] VITALS: BP 101/64; PULSE 62; RESP 18; TEMP 36.5; O2SAT 94
[2024-01-09 03:00] VITALS: BP 105/62; PULSE 69; RESP 19; TEMP 36.8; O2SAT 97
[2024-01-09] MEDS: ACETAMINOPHEN 325 MG TABLET 650 MG PO ×2 (03:58→09:29)
[2024-01-09] MEDS: OXYCODONE 5 MG TABLET 15 MG PO ×3 (03:59→14:19)
--- NOTE | 2024-01-09 05:12 | PC.NURSE ---
Addendum entered by Taya Joy RN 01/09/24 05:31: Patient reports she is passing gas. Original Note: Shift note ([id number]): Patient pleasant, alert and oriented. Ambulating independently in room. Tolerating regular diet. No drainage at lap sites. Reported abdominal pain rated 2-4/10. PRN Oxycodone and scheduled Tylenol given. Ice pack applied to surgical site. Wearing abdominal binder.?
[2024-01-09 07:58] VITALS: BP 106/61; PULSE 66; PULSE 69; RESP 10; RESP 19; TEMP 37.7; O2SAT 96
[2024-01-09] MEDS: IBUPROFEN 400 MG TABLET PO ×2 (08:04→12:09)
[2024-01-09] MEDS: BUPRENORPHINE 8 MG SUBLINGUAL (09:30)
[2024-01-09] MEDS: GABAPENTIN 300 MG CAPSULE PO (09:30)
[2024-01-09] MEDS: SENNOSIDES/DOCUSATE TABLET 1 TAB PO (09:30)
[2024-01-09 11:00] VITALS: BP 108/64; PULSE 74; RESP 16; TEMP 37.4; O2SAT 96
--- NOTE | 2024-01-09 11:03 | P.IMPN_ITS ---
Progress Note: A&P Assessment and plan (1) Endometriosis: Problem details: 01/07/2024: status post total laparoscopic hysterectomy, bilateral salpingectomy and diagnostic cystoscopy for chronic pelvic pain and dysmenorrhea, Dr. Devine, [facility] Status: Chronic (2) Postoperative pain: Problem details: - decreased buprenorphine dose to 4 mg twice daily, per pain clinic - increase oxycodone does from 10 mg 5 times daily to 15 mg 6 times daily in the hospital and at time of discharge 15 mg 5 times daily - hydromorphone 1 mg IV q.4 hours: Has not had any for over 24 hours. - acetaminophen 650 mg q.6 hours - postop ketorolac IV x2 days, then switch to ibuprofen 400 mg p.o. t.i.d. p.c. - gabapentin 300 mg twice daily - cyclobenzaprine 10 mg t.i.d. p.r.n. for muscle spasm - optimize ice pack therapy and other modalities - hydroxyzine 25 mg po q 4 hours as needed for pain - does obtain some benefit from this - encourage continued ambulation - minimum of 6 times daily 01/09/2024: I have written for the following medications for her when her surgeon deems she is ready to be discharged: 1. Acetaminophen 650 mg p.o. q.i.d.; 2. Ibuprofen 400 mg p.o. t.i.d. p.c. and omeprazole 20 mg p.o. q.a.m. while on the ibuprofen; 3. Gabapentin 300 mg p.o. b.i.d.; 4. Cyclobenzaprine 10 mg p.o. t.i.d. p.r.n. for muscle spasm; 5. Hydroxyzine 25 mg p.o. q.4 hours p.r.n. for breakthrough pain. I have not written for buprenorphine or oxycodone prescriptions: 1. Patient to continue taking her buprenorphine 4 mg twice daily, per pain clinic recommendations, at time of discharge until she has follow-up with her pain clinic. Patient already has 8 mg buprenorphine tablets and likely does not need a new prescription for this at this time given that she can simply break these tablets in half; 2. Patient to transition to oxycodone 15 mg 5 times daily at time of discharge, per pain clinic recommendations, with additional adjustments made by the pain clinic hereafter when she has follow-up with them. Patient may need a prescription for a small quantity of the oxycodone at time of discharge from the hospital given that her usual dose is 10 mg 5 times daily. Once again the pain clinic will resume prescribing this medication when she has follow-up with them soon after discharge from the hospital. Status: Acute (3) Chronic neck and back pain: Status: Acute (4) Chronic pelvic pain in female: Status: Acute (5) Opioid dependence: Problem details: [facility] 06-16-23: Bup 8mg TID, Oxy 10mg 5 times/day Status: Acute Time Spent With Patient Total time spent: 35 minutes Subjective Date Seen: 01/09/24 Interval history: Post operative day 2. Pain is much closer to baseline than it was yesterday. She is generally satisfied with the level of pain control she currently has. She is able to separate surgical pain from baseline chronic pain. She is anxious about leaving the hospital, fearful she might not be able to maintain her current level of acceptable pain control. Has not had any intravenous hydromorphone for over 24 hours. Has been achieving pain control with nonpharmacologic means and oral analgesics medications only. Denies nausea or vomiting. Tolerating oral intake. Tolerating gradual increase in activity level. Exam Narrative: Exam Narrative: I examine her in her hospital room. She is sitting in the recliner chair at her bedside, comfortably eating her breakfast. No acute distress. Articulate and cooperative. Alert and oriented x4. Lungs clear to auscultation. Heart tones with regular rhythm. Abdomen with active bowel sounds. Independent with transfers and ambulation. Const: Vital Signs, click to edit/add: Vital Signs - 24 hr 01/08/24 16:00 01/08/24 16:00 01/08/24 19:00 Temperature 98.4 F 98.5 F Pulse Rate [Right Pulse Oximeter] 76 76 68 Respiratory Rate 16 16 16 Blood Pressure [Ri ght Arm] 111/70 104/68 Pulse Oximetry 97 96 Oxygen Delivery Me thod Room Air Room Air 01/08/24 23:00 01/09/24 03:00 01/09/24 07:58 Temperature 97.7 F 98.3 F Pulse Rate [Right Pulse Oximeter] 62 69 69 Respiratory Rate 18 19 19 Blood Pressure [Ri ght Arm] 101/64 105/62 Pulse Oximetry 94 97 Oxygen Delivery Me thod Room Air Room Air 01/09/24 07:58 Temperature 99.8 F H Pulse Rate [Right Pulse Oximeter] 66 Respiratory Rate 10 L Blood Pressure [Ri ght Arm] 106/61 Pulse Oximetry 96 Oxygen Delivery Me thod Room Air Labs Labs: Laboratory Results - last 24 hr 01/08/24 17:24 Hgb 11.7 L Creatinine 0.7 Estimated Creat Clear 111.16 Estimated GFR 117
--- NOTE | 2024-01-09 11:56 | PM.GYNDS1 ---
DS: Providers Provider Date Seen: 01/09/24 Date of admission: 01/08/24 15:52 Primary care physician: Xiomara Cartagena DO Admitting Clinician: Latasha López MD Attending Physician on discharge: Kitty Devine MD Date of Discharge: 01/09/24 DS: Diagnosis Discharge Diagnosis (1) Status post laparoscopic hysterectomy: Status: Acute Problem details: w/ bilateral salpingectomy (2) Postoperative pain: Status: Acute Problem details: Per Dr. Hutson - decreased buprenorphine dose to 4 mg twice daily, per pain clinic - increase oxycodone does from 10 mg 5 times daily to 15 mg 6 times daily in the hospital and at time of discharge 15 mg 5 times daily - hydromorphone 1 mg IV q.4 hours: Has not had any for over 24 hours. - acetaminophen 650 mg q.6 hours - postop ketorolac IV x2 days, then switch to ibuprofen 400 mg p.o. t.i.d. p.c. - gabapentin 300 mg twice daily - cyclobenzaprine 10 mg t.i.d. p.r.n. for muscle spasm - optimize ice pack therapy and other modalities - hydroxyzine 25 mg po q 4 hours as needed for pain - does obtain some benefit from this - encourage continued ambulation - minimum of 6 times daily 01/09/2024: I have written for the following medications for her when her surgeon deems she is ready to be discharged: 1. Acetaminophen 650 mg p.o. q.i.d.; 2. Ibuprofen 400 mg p.o. t.i.d. p.c. and omeprazole 20 mg p.o. q.a.m. while on the ibuprofen; 3. Gabapentin 300 mg p.o. b.i.d.; 4. Cyclobenzaprine 10 mg p.o. t.i.d. p.r.n. for muscle spasm; 5. Hydroxyzine 25 mg p.o. q.4 hours p.r.n. for breakthrough pain. I have not written for buprenorphine or oxycodone prescriptions: 1. Patient to continue taking her buprenorphine 4 mg twice daily, per pain clinic recommendations, at time of discharge until she has follow-up with her pain clinic. Patient already has 8 mg buprenorphine tablets and likely does not need a new prescription for this at this time given that she can simply break these tablets in half; 2. Patient to transition to oxycodone 15 mg 5 times daily at time of discharge, per pain clinic recommendations, with additional adjustments made by the pain clinic hereafter when she has follow-up with them. Patient may need a prescription for a small quantity of the oxycodone at time of discharge from the hospital given that her usual dose is 10 mg 5 times daily. Once again the pain clinic will resume prescribing this medication when she has follow-up with them soon after discharge from the hospital. (3) Opioid dependence: Status: Acute Problem details: [facility] 06-16-23: Bup 8mg TID, Oxy 10mg 5 times/day (4) Endometriosis: Status: Chronic Problem details: 01/07/2024: status post total laparoscopic hysterectomy, bilateral salpingectomy and diagnostic cystoscopy for chronic pelvic pain and dysmenorrhea, Dr. Devine, [facility] REG[facility]-Discharge Summary Hospital Course Hospital Course Narrative: Patient is a 33 year old admitted on 01/07/24 for total laparoscopic hysterectomy with bilateral salpingectomy and cystoscopy Indication for surgery: Chronic pelvic pain with laparoscopy proven endometriosis. Intraoperative findings were notable for normal pelvis with no endometriosis seen. There was a small adhesion in the right lower abdomen, but the pelvis was without adhesive disease. Cystoscopy findings were normal. She had an uncomplicated surgery. Postoperative course has been notable for understandable difficulties with pain control. The hospitalist's service was consulted for assistance in pain management; their recommendations are as above. I have also spoken to [facility] pain clinic, and the recommendations are as summarized in the hospitalist's note. I will send additional 25 tablets of oxycodone 5 mg. Thereafter, the pain clinic will assume management of chronic pain. Vitals have been stable. She has remained afebrile. Today, on postoperative day 2, she reports the pain is better controlled. She has used no IV pain medication for greater than 24 hours. She has been able to ambulate Without difficulty. She is tolerating regular diet. She is passing flatus. Paez catheter has been removed; she does note some urinary hesitancy this morning. She has not voided very many times since surgery. Time Spent with Patient Time attestation: Total time spent providing and/or coordinating discharge services: Time spent: Less than 30 minutes [facility] - Exam Physical Exam: Vital signs: Temp Pulse Resp BP Pulse Ox O2 Del Method 99.8 F H 66 10 L 106/61 96 Room Air 01/09/24 07:58 01/09/24 07:58 01/09/24 07:58 01/09/24 07:58 01/09/24 07:58 01/09/24 07:58 Narrative: General: Pleasant, no acute distress Heart: Regular rate and rhythm, no murmur or gallop Lungs: Clear to auscultation bilaterally Abdomen: Laparoscopic incisions clean, dry, and intact. Normoactive bowel sounds. Soft, tenderness to palpation is noted, no rebound or guarding, no distension Lower extremities: No edema or erythema [facility] - DS: Data Data Completed and Pending Labs on day of discharge: Labs from last 24 hours 01/08/24 17:24 Hgb 11.7 L Creatinine 0.7 Estimated Creat Clear 111.16 Estimated GFR 117 Procedures Procedures: Procedures Operation Date: 01/07/24 09:10 Actual Procedure Side Surgeon p Total Laparoscopic Hysterectomy, Bilateral Salpingectomy, Cystoscopy Bilateral Kitty Devine MD Complications: none Discharge Plan Discharge Disposition: Home, Self-Care Date of Admission: 01/08/24 15:52 Attending Provider on Discharge: Kitty Devine Primary Care Provider: Xiomara Cartagena Condition: Stable Anticipated Discharge Date/Time: 01/09/24 12:01 Discharge Medications: New cyclobenzaprine 10 mg Tablet 10 mg PO TID PRN (Reason: Muscle Spasm) 7 Days Qty: 15 1RF acetaminophen 325 mg Tablet 650 mg PO Q6H 15 Days Qty: 100 0RF ibuprofen 400 mg Tablet 400 mg PO TIDWM 15 Days Qty: 45 0RF gabapentin 300 mg Capsule 300 mg PO BID 30 Days Qty: 60 0RF hydroxyzine pamoate 25 mg Capsule 25 mg PO Q4H PRN15 Days Qty: 30 1RF polyethylene glycol 3350 [Miralax] 17 gram Powder In Packet 17 g PO DAILY PRNQty: 0 0RF sennosides-docusate sodium [Stool Softener-Laxative] 8.6-50 mg Tablet 1 tab PO BID Qty: 30 0RF bisacodyl 10 mg Suppository 10 mg NJ DAILY PRNQty: 0 0RF oxycodone 5 mg Tablet 5 mg PO Q4H PRNQty: 25 0RF naloxone 1 mg/mL Syringe 1 mg IM ONCE PRN (Reason: narcotic obtundation) Qty: 0 0RF Continued oxycodone 10 mg tablet 10 mg PO Q6H Patient Comments: 4 times a day norethindrone-e.estradiol-iron [[place]is[place] Fe 1.5/30 (28)] 1.5 mg-30 mcg (21)/75 mg (7) tablet 1 tab PO DAILY escitalopram oxalate [Lexapro] 10 mg tablet 10 mg PO QDAY ondansetron 4 mg tablet,disintegrating 4 mg PO Q6H PRN (Reason: nausea and vomiting) Qty: 20 0RF Discontinued ibuprofen 800 mg tablet 800 mg PO Q8H buprenorphine HCl 8 mg tablet, sublingual 8 mg sublingual 3XD Discharge Orders: Discharge Order (Routine); Ordered 01/09/24 Ordered By: Kitty Devine Consulting provider completed their portion of the discharge: Yes Patient Education: Laparoscopic Hysterectomy (DC) Discharge Diet: Regular Follow Up Appointments: Kitty Devine MD [Staff Physician] - Xiomara Cartagena DO [Primary Care Provider] - Forms: [employer] Info Instructions
--- NOTE | 2024-01-09 16:23 | PC.NURSE ---
Nursing Care Hours: 3393-9034 Pt this shift calm and cooperative, oriented x4. Flat affect noted. Low RR while sleeping during morning vitals, intermittent snoring noted. spo2 WNL and pt awakes by name. Pain rated between 5/10 most times. Increased to 7/10 after physical exam by provider. Pain treated per eMAR, ice, and abd binder. Encouraged to walk the gupta, pt agreed but did not. Was independent in the room. Pt states still passing gas. Provider concerned for urine retention. Auto Former Machine Operator encouraged pt to void before scan, pt voided 200ml. Bladder scan showed zero amount retained. During discharge instructions, pt asked if Dilaudid could be added for breakthrough pain. Auto Former Machine Operator discussed with pt and family the pain prescriptions and appropriate timing and use including using acetaminophen and Ibuprofen alternating every three hours. That Gabapentin was added for BID and that the 5mg oxycodone should be used as the breakthrough pain management. Pt and family verbally understood. pt wheeled out to family vehicle in stable condition.
--- OUTSIDE RECORDS SUMMARY | 2024-01-11 09:24 | XMS_ITS | Encounter Summary ---
Author Organization [place] Address [address] [facility] [place] [address] Care Team Providers Care Supervisor Car And Yard Name Role Phone Kathryn Valladares MD Primary Care Provider [phone] [facility] Primary Care Provide r No Ref-Primary, Physician Primary Care Provider Encounter Details Date Type Department Care Team (Late st Contact Info) Description 03/03/2014 [facility] Medical Advice [facility] [address] [place] [address] 3rd Floor,[address] [place] [facility] [address] [place] [address] Martha Guido, MILTON CNM Social [...] on filedocumented in this encounter Care Teams Supervisor Car And Yard Relationship Specialty Start [place] [address] [place] [address] PCP - General Family Practice 03/02/13 04/28/19 [facility] [address] [place], [place] [id number] PCP - General 04/29/19 08/31/23 No Ref-Primary, Physician PCP - General 09/01/23 documented as of this encounter
--- OUTSIDE RECORDS SUMMARY | 2024-01-11 09:24 | XMS_ITS | Referral Summary ---
Author Organization [place] Address [address] [place] [address] Care Team Providers Care Java Web Architect Name Role Phone No Ref-Primary, Physician Primary [...] of Treatment Not on file Care Teams Java Web Architect Relationship Specialty Start Date End Date No Ref-Primary, Physician PCP - General 09/01/23
--- OUTSIDE RECORDS SUMMARY | 2024-01-11 09:24 | XMS_ITS | Patient Health Record ---
Author Organization [facility] Address [address] [address] Care Team Providers Care Bicycle Technician Name Role Phone Deanna Soria Primary Care Provider Radha Valiente Unavailable [phone] Allergies Allergen (clinical drug ingredient) Drug/Non Drug [...] Problem Status W/U Status Risk Notes Problem [id number] Endometriosis determined by laparoscopy (N80.9) Active confirmed Problem 298350633 Anxiety with depression (F41.8) Active confirmed Problem [id number] Hypothyroidism (acquired) (E03.9) Active confirmed Plan Of Treatment No Information Insurance Providers Payer Name Payer Address Payer Phone Subscriber Number Group Number Insured Name Patient Relationship to Insured Coverage Start Date Coverage End Date [employer] 2021 JOE (CLIENT bill) [address] [place], [place] [id number] Martina Au Self - patient is the insured [place] [employer] Medicaid (Ins. Bill) [address] [address] [place], [place] [id number] Roe , Martina Self - patient is the insured Medical (General) History Medical History History ICD Code Endometriosis Ovarian Cysts Depression / Anxiety Thyroid Problem Surgical History Surgery Date(Month/Year) Cyst; Left Wrist Tonsillectomy / Adenoidectomy Laparscopy 06/2021 Felch Teeth Removed
--- OUTSIDE RECORDS SUMMARY | 2024-01-11 09:24 | XMS_ITS | Clinical Summary ---
Author Organization [place] Address [facility] [place] [address] Care Team Providers Care Aircraft Shipping Checker Name Role Phone No Ref-Primary, Physician Primary [...] age to complete this topic Care Teams Aircraft Shipping Checker Relationship Specialty Start Date End Date No Ref-Primary, Physician PCP - General 09/01/23
--- OUTSIDE RECORDS SUMMARY | 2024-01-11 09:25 | XMS_ITS | Clinical Summary ---
Author Organization [facility] Address [place], [place] [address] Care Team Providers Care Freight Solicitor Name Role Phone Pcp, No Primary Care [...] Encounters Date Type Department Care Team Description 01/07/2024 Lab Requisition [facility] [phone] Kitty Medina MD 01/01/2024 11:00 AM CDT - 01/01/2024 11:59 PM CDT Hospital Encounter [facility] [address] [place] [address] S/P left knee surgery 01/01/2024 Travel 12/30/2023 2:50 PM CDT Preop Visit [facility] [address] [place] [address] Xiomara Cartagena, Pre-Op Exam (TOTAL LAPROSCOPIC HYSTERECTOMY, BILATERAL SALPINGECTOMY, FULGURATION/EXCISIO N OF /ENTOMETRIOSIS, CYSTOSCOPY 01/07/24/ [facility] /DR [...] Heart Disease Other 3 maternal great grandmother, [place] Alcoholism Paternal Grandfather Diabetes Paternal Grandfather Postmenopausal [...] ??C (98.6 ??F) 05/27/2023 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 PULL TAB DEALER Respiratory Rate 18 02/24/2023 5:58 PM PULL TAB DEALER Oxygen Saturation 98% 06/19/2023 1:16 PM CDT [...] Procedure Name Priority Date/Time Associated Diagnosis Comments LAB TRACKING EVENT Routine 01/07/2024 11 :58 AM CDT US VENOUS LOWER EXTREMITY LEFT IGNNA 01/01/2024 11:54 AM CDT S/P left knee surgery CBC W PLT NO DIFF Routine 12/30/2023 3:3 2 PM CDT Pre-op exam HPV HIGH RISK Routine 08/04/2022 9:45 AM CDT Pap smear for cervical cancer screening from Last 3 Months or Most Recently Relevant to Health Maintenance Results * LAB TRACKING EVENT (01/07/2024 11:58 AM CDT) Other (Other) Client Collect / Unknown 01/07/2024 11:58 AM CDT 01/07/2024 10:19 PM CDT Kitty Medina MD LAB BILL ONLY [facility] [address] [place] [address], [place] * US VENOUS LOWER EXTREMITY LEFT (01/01/2024 11:54 AM CDT) Anatomical Region Laterality Modality LEGS, LEG L, Abdomen Ultrasound 01/01/2024 4:51 PM CDT Narrative 01/01/2024 4:51 PM CDT For Patients: ??As a result of the Cures Act, medical imaging exams and procedure [...] RDW 13.0 11.0 - 15.0 % [facility] PLATELET COUNT 235 140 - 400 Thousand/u L [facility] MPV 10.7 7.5 - 12.5 fL [facility] Blood BLOOD SPECIMEN / Unknown 12/30/2023 3:32 PM CDT 12/30/2023 3:33 PM CDT Xiomara Cartagena DO HEMATOLOGY [employer] [facility] [address] [place] [address], [facility] [address] [place] [address] * HPV HIGH RISK (08/04/2022 9:45 AM CDT) TYPE 16 Negative Negative 08/08/2022 2:19 PM CDT [facility] TYPE 18 Negative Negative 08/08/2022 2:19 PM CDT [facility] OTHER HIGH RISK TYPES Negative Negative 08/08/2022 2:19 PM CDT [facility] Other (Cervical) Non-Blood / Unknown 08/04/2022 9:45 AM CDT 08/05/2022 4:54 PM CDT Narrative [facility] - 08/08/2022 2:19 PM CDT HPV types 16, 18, 31, 33, 35, 39, 45, 51, 52, 56, 58, 59, 66 and 68 DNA were undetectable or below the pre-set threshold. Methodology: Dulce Ciro 4800 HPV Test Belgica Gleason MD MICROBIOLOG[facility] [address] [place] [address], from Last 3 Months or Most Recently [...] 4:09 PM 03/04/2007 6:08 PM Care Teams Freight Solicitor Relationship Specialty Start Date End Date Pcp, No . PCP - General 02/27/22
== END 2024-01-09 14:30 | disposition home or self-care (01) | DRG 742 ==
LOC: OR 16:25 → MEDSURG 01-09 11:19
PROVIDERS: Obstetrics & Gynecology; Admitting Provider Obstetrics & Gynecology; PCP Family Medicine; Visit Provider Obstetrics & Gynecology
PROC: 0UT94ZZ Resection of Uterus, Percutaneous Endoscopic Approach (ICD-10-PCS; principal; 2024-01-07 09:00)
DX: N80.00 Endometriosis of the uterus, unspecified (principal); F11.20 Opioid dependence, uncomplicated; R10.2 Pelvic and perineal pain; N72 Inflammatory disease of cervix uteri; D25.9 Leiomyoma of uterus, unspecified; G89.29 Other chronic pain; M54.2 Cervicalgia; M54.9 Dorsalgia, unspecified; N94.6 Dysmenorrhea, unspecified; R14.0 Abdominal distension (gaseous); G89.18 Other acute postprocedural pain
CPT/HCPCS: 00840; 36415; 64488; 76942; 81025; 82565; 84703; 85018; 86850; 86900; 86901; 88307; A9270; C9290; J0330; J0665; J0690; J1100; J1171; J1200; J1885; J2003; J2250; J2405; J2704; J3010; J3475; J3490; J7120

== ENCOUNTER 2024-01-11 18:01 | Emergency (ER) | payer MEDICAID, SELFPAY ==
[2024-01-11 18:12] VITALS: BP 150/90; PULSE 83; RESP 18; TEMP 37.2; O2SAT 99; BMI 34.5
--- NOTE | 2024-01-11 18:26 | ED_ITS ---
HPI - General Adult General Time Seen by Provider: 18:26 Date Seen: 01/11/24 Chief complaint: Post Op Complication Stated complaint: Post op Complications - Hysterectomy Time Seen by Provider: 01/11/24 18:26 Source: patient, RN notes reviewed and old records reviewed (Did review discharge from hospitalization.) Mode of arrival: ambulatory Limitations: no limitations History of Present Illness HPI narrative: This 33-year-old female is coming in with concern of fevers as well as postoperative pain that is uncontrolled. She did purchase a thermometer, was reading 100.5-101 the last 24 hours. It was some type of thermometer that she purchase, reportedly is oral. She is not having any coughing, she notes every time she feels her bowels moving, has to urinate or pass gas or stool, she will have increased sharp type pain in the pelvic area. The left lower quadrant incision site is the worst. None are draining, she has double abdominal wraps on to help with pain. She states she did have a bowel movement, is taking the stool softener and does feel her bowels are moving adequately. She is eating and drinking fine. Again, no cough for respiratory symptoms. She has been taking acetaminophen, is not taking Flexeril, has been taking the gabapentin 300 mg twice a day which just makes her tired. The hydroxyzine just makes her feel dizzy and lightheaded, she does not like this. Has been using ibuprofen. Has been using oxycodone. They note that 20 mg in the morning and later in evening does seem to help her, have been doing 15 at lunch and then a 5 mg intermediate does in the morning and afternoon. She was scheduled to be taking 15 mg 5 times a day at discharge. Remains on her buprenorhine but at 4mg bid. Related Data Home Medications ?Medication ?Instructions ?Recorded ?Confirmed oxycodone 10 mg tablet 10 mg PO Q6H 04/21/22 01/07/24 norethindrone 1.5 mg-ethinyl 1 tab PO DAILY 06/17/23 01/07/24 estradiol 30 mcg(21)/iron 75 mg(7) tablet (Blisovi Fe 1.5/30 (28)) escitalopram oxalate 10 mg tablet 10 mg PO QDAY 11/24/23 01/07/24 (Lexapro) Previous Rx's ?Medication ?Instructions ?Recorded ondansetron 4 mg disintegrating 4 mg PO Q6H PRN nausea and 08/31/23 tablet vomiting #20 tabs acetaminophen 325 mg tablet 650 mg (2 x 325 mg) PO Q6H 15 days 01/09/24 #100 tabs bisacodyl 10 mg rectal suppository 10 mg DE DAILY PRN #0 ea 01/09/24 cyclobenzaprine 10 mg tablet 10 mg PO TID PRN Muscle Spasm 7 01/09/24 days #15 tabs gabapentin 300 mg capsule 300 mg PO BID 30 days #60 caps 01/09/24 hydroxyzine pamoate 25 mg capsule 25 mg PO Q4H PRN 15 days #30 caps 01/09/24 ibuprofen 400 mg tablet 400 mg PO TIDWM 15 days #45 tabs 01/09/24 naloxone 1 mg/mL injection syringe 1 mg IM ONCE PRN narcotic 01/09/24 obtundation #0 mL oxycodone 5 mg tablet 5 mg PO Q4H PRN #25 tabs 01/09/24 polyethylene glycol 3350 17 gram 17 g PO DAILY PRN #0 ea 01/09/24 oral powder packet (Miralax) sennosides 8.6 mg-docusate sodium 1 tab PO BID #30 tabs 01/09/24 50 mg tablet (Stool Softener-Laxative) Allergies Allergy/AdvReac Type Severity Reaction Status Date / Time azithromycin Allergy Mild Unknown Verified 11/24/23 08:19 Penicillins Allergy Mild Hives Verified 11/24/23 08:19 erythromycin base Allergy Unknown Unknown Verified 11/24/23 08:19 amitriptyline Allergy Rash Verified 01/04/24 11:09 chlordiazepoxide Allergy Rash Verified 01/04/24 11:09 Review of Systems Status of ROS: Reports: 6 or more systems reviewed and unremarkable except as noted in History and below [facility] Medical History Pain in pelvis ?R10.2 - Pelvic and perineal pain (ICD-10) Opioid dependence ?F11.20 - Opioid dependence, uncomplicated (ICD-10) IBS (irritable bowel syndrome) ?K58.9 - Irritable bowel syndrome without diarrhea (ICD-10) Trigger point ?M79.10 - Myalgia, unspecified site (ICD-10) Hiatal hernia ?K44.9 - Diaphragmatic hernia without obstruction or gangrene (ICD-10) History of kidney stones ?Z87.442 - Personal history of urinary calculi (ICD-10) History of ovarian cyst ?Z87.42 - Personal history of other diseases of the female genital tract (ICD-10) Surgical History Status post laparoscopic hysterectomy (01/07/24) ?Z90.710 - Acquired absence of both cervix and uterus (ICD-10) History of dental surgery ?Z92.89 - Personal history of other medical treatment (ICD-10) H/O laparoscopy ?Z98.890 - Other specified postprocedural states (ICD-10) History of surgical removal of ganglion cyst ?Z98.890 - Other specified postprocedural states (ICD-10) History of tonsillectomy ?Z90.89 - Acquired absence of other organs (ICD-10) Family History Mother High blood pressure Multiple sclerosis Grandfather Diabetes Aunt Leukemia Other Colon cancer High cholesterol Osteoporosis Ovarian cancer Social History What is your current living situation?: I presently have a place to live Problems where you live: no known problems In the past 12 months, utilities in danger of being shut off: no In past 12 months, lack of transportation kept you from medical appts, meetings, work, or getting things needed for daily living: no In the past 12 mos, have been you worried that your food would run out before you had money to buy more?: never true In the past 12 mos, the food you bought just didn't last and you didn't have money to buy more?: never true Smoking Status: Never smoker Second hand tobacco smoke exposure: No How often do you have a drink containing alcohol: never AUDIT-C Alcohol total score: 0 Non-prescribed substance use: opiods/painkillers Caffeine: No How often does anyone, including family, friends and others, physically hurt you : never How often does anyone, including family, friends and others, insult or talk down to you: never How often does anyone, including family, friends and others, threaten you with harm: never How often does anyone, including family, friends and others, scream or curse at you: never service: No Exam Const: Vital Signs, click to edit/add: Vital Signs - 24 hr 01/11/24 18:12 Temperature 98.9 F Pulse Rate [Right Pulse Oximeter] 83 Respiratory Rate 18 Blood Pressure [Ri ght Upper Arm] 150/90 H Pulse Oximetry 99 Oxygen Delivery Me thod Room Air This patient is alert, interactive, no parents stress but tearful. Sclera clear, conjugate gaze, able speak in complete sentences. Lungs are clear, good air entry, no wheezing crackles. CV regular rate and rhythm, no murmur, normal S1-S2, no S3-S4. Her abdominal wraps were lifted up, abdomen is soft, has 4 port sites that are clean dry and intact, they do have some bruising around them but there is no erythema, none of the sites are raised, no drainage. Abdomen is soft, mildly tender but not out of proportion for what I would expect after surgery. Documenting provider has reviewed patient's vital signs: yes Course Course ED Course: Patient will get oral temperature just to ensure that she truly is not febrile. Will get some baseline labs on her to make sure that her white count is stable, hemoglobin stable. In the meantime, will place an IV and give her 15 mg IV Toradol and 0.5 mg IV Dilaudid. Have discussed with her that different patients have different pain tolerance is. She is really wanting 20 mg of oxycodone, feels it helps better. She states her pain threshold is different and that she does not believe that this is a safety issue for her. Do understand this, will give her some pain management here. Will likely need to talk to OB. Will review her labs as they come back. Reevaluation(s) Time of Reevaluation #1: 20:13 Reevaluation #1: Have reviewed with patient my conversation with OB on-call. She will have to follow up in the morning. We reviewed her labs are reassuring. She did have a follow-up oral temperature and was normal. I cannot provide her with further narcotics and she understands that we will not be doing further pain management for this out of the ER. If she has other concerns or complications with her surgery, we are always here to help her. Consultations Consultation #1: Have spoken with Dr. Stephens from obstetrics. She is aware of this patient. She believes her partner got the pain management regimen from her pain clinic. She believes that any further pain directive or change in pain management needs to come from them. She can try to call Dr. Devine tomorrow, may have to put written contact her request for appointment with her pain clinic tomorrow. It is requested that I not give further pain medicines and I will update the patient on this. Time: 19:49 Vital Signs Vital signs: Initial Vital Signs Temperature 98.9 F 01/11/24 18:12 Temperature Source Temporal Artery Scan 01/11/24 18:12 Pulse Rate 83 01/11/24 18:12 Respiratory Rate 18 01/11/24 18:12 Blood Pressure 150/90 H 01/11/24 18:12 Blood Pressure Mean 110 H 01/11/24 18:12 Blood Pressure Position Sitting 01/11/24 18:12 Pulse Oximetry 99 01/11/24 18:12 Oxygen Delivery Method Room Air 01/11/24 18:12 Vital Signs Temperature 98.9 F 01/11/24 18:12 Pulse Rate 83 01/11/24 18:12 Respiratory Rate 18 01/11/24 18:12 Blood Pressure 150/90 H 01/11/24 18:12 Pulse Oximetry 99 01/11/24 18:12 Oxygen Delivery Method Room Air 01/11/24 18:12 Temperature 98.9 F 01/11/24 18:12 Pulse Rate 83 01/11/24 18:12 Respiratory Rate 18 01/11/24 18:12 Blood Pressure 150/90 H 01/11/24 18:12 Pulse Oximetry 99 01/11/24 18:12 Oxygen Delivery Method Room Air 01/11/24 18:12 Medications Administered Medications: Generic Name Dose Route Start Last Admin Trade Name Freq PRN Reason Stop Dose Admin Hydromorphone HCl 0.5 mg 01/11/24 18:40 01/11/24 19:02 Hydromorphone 0.5 Mg/0.5 Ml Inj IVP 01/11/24 18:41 0.5 mg ONCE ONE Administration Ketorolac Tromethamine 15 mg 01/11/24 18:40 01/11/24 19:08 Ketorolac 15 Mg/Ml Inj IVP 01/11/24 18:41 15 mg ONCE ONE Administration Medical Decision Making Lab Data Labs: Lab Results 01/11/24 Range/Units 18:52 WBC 9.16 (4.50-11.00) K/uL RBC 4.09 (4.00-5.20) m/uL Hgb 11.7 L (12.0-16.0) gm/dL Hct 35.6 (33.0-51.0) % MCV 87 (80-100) fL MCH 29 (26-34) pg MCHC 33 (32-36) gm/dL RDW Coeff of Urbano 13.0 (11.5-15.5) % Plt Count 229 (140-440) K/uL Neut % (Auto) 54.9 (42.0-72.0) % Lymph % (Auto) 34.7 (20-44) % [place] % (Auto) 7.9 (0.0-11.0) % Eos % (Auto) 2.2 (0.0-7.0) % Baso % (Auto) 0.1 (0.0-3.0) % Neut # (Auto) 5.03 (1.7-7.0) K/uL Lymph # (Auto) 3.18 H (0.90-2.90) K/uL [place] # (Auto) 0.70 (0.00-0.90) K/UL Eos # (Auto) 0.20 (0.00-0.50) K/uL Baso # (Auto) 0.01 (0.00-0.30) K/uL Abs Immat Gran (auto) 0.02 (0.00-0.30) K/uL Imm/Tot Granulo (auto) 0.2 % Sodium 134 L (135-149) mmol/L Potassium 4.0 (3.6-5.1) mmol/L Chloride 99 (96-114) mmol/L Carbon Dioxide 26 (20-32) mmol/L Anion Gap 9 (7-15) mEq/L BUN 6 (5-24) mg/dL Creatinine 0.6 (0.5-1.5) mg/dL Estimated Creat Clear 129.69 Estimated GFR 121 ml/min Glucose 118 H (60-115) mg/dL Lactate 1.7 (0.5-1.9) mmol/L Calcium 9.4 (8.4-10.6) mg/dL Discharge Plan Discharge Clinical Impression: Post-operative pain, Feared condition not demonstrated Patient Disposition: Home, Self-Care Condition: Stable Instructions: Pain Management (ED), Non-pharmacological Pain Management Therapies for Adults (ED) Additional Instructions: Need to contact Dr. Devine as well as your pain clinic tomorrow. Continue with postoperative recommendations and pain management from discharge. Prescriptions: No Action oxycodone 10 mg tablet 10 mg PO Q6H Patient Comments: 4 times a day norethindrone-e.estradiol-iron [Blisovi Fe 1.5/30 (28)] 1.5 mg-30 mcg (21)/75 mg (7) tablet 1 tab PO DAILY escitalopram oxalate [Lexapro] 10 mg tablet 10 mg PO QDAY ondansetron 4 mg tablet,disintegrating 4 mg PO Q6H PRN (Reason: nausea and vomiting) Qty: 20 0RF cyclobenzaprine 10 mg Tablet 10 mg PO TID PRN (Reason: Muscle Spasm) 7 Days Qty: 15 1RF acetaminophen 325 mg Tablet 650 mg PO Q6H 15 Days Qty: 100 0RF ibuprofen 400 mg Tablet 400 mg PO TIDWM 15 Days Qty: 45 0RF gabapentin 300 mg Capsule 300 mg PO BID 30 Days Qty: 60 0RF hydroxyzine pamoate 25 mg Capsule 25 mg PO Q4H PRN15 Days Qty: 30 1RF polyethylene glycol 3350 [Miralax] 17 gram Powder In Packet 17 g PO DAILY PRNQty: 0 0RF sennosides-docusate sodium [Stool Softener-Laxative] 8.6-50 mg Tablet 1 tab PO BID Qty: 30 0RF bisacodyl 10 mg Suppository 10 mg DE DAILY PRNQty: 0 0RF oxycodone 5 mg Tablet 5 mg PO Q4H PRNQty: 25 0RF naloxone 1 mg/mL Syringe 1 mg IM ONCE PRN (Reason: narcotic obtundation) Qty: 0 0RF Follow Up/Referrals: Xiomara Cartagena DO [Primary Care Provider] - Stand Alone Forms: [facility] Info Instructions
[2024-01-11 18:57] LABS: Lactate* 1.7 mmol/L (0.5-1.9)
[2024-01-11 19:01] LABS: Basophils Absolute Auto 0.01 K/uL (0.00-0.30); Basophils Percent Auto 0.1 % (0.0-3.0); Eosinophils Percent Auto 2.2 % (0.0-7.0); Hematocrit 35.6 % (33.0-51.0); Hemoglobin* 11.7 gm/dL (12.0-16.0); Immature Granulocytes Abs Auto 0.02 K/uL (0.00-0.30); Immature Granulocytes Pct Auto 0.2 %; Lymphocytes Absolute Auto 3.18 K/uL (0.90-2.90); Lymphocytes Percent Auto 34.7 % (20-44); Mean Corpuscular HGB Conc 33 gm/dL (32-36); Mean Corpuscular Hemoglobin 29 pg (26-34); Mean Corpuscular Volume 87 fL (80-100); Monocytes Percent Auto 7.9 % (0.0-11.0); Neutrophils Absolute Auto 5.03 K/uL (1.7-7.0); Neutrophils Percent Auto 54.9 % (42.0-72.0); Platelet Count* 229 K/uL (140-440); Red Blood Count 4.09 m/uL (4.00-5.20); White Blood Count* 9.16 K/uL (4.50-11.00)
[2024-01-11] MEDS: HYDROmorphone 0.5 mg/0.5 ml inj IVP (19:02)
--- OUTSIDE RECORDS SUMMARY | 2024-01-11 19:03 | XMS_ITS | Continuity of Care Document ---
Author Organization [facility] Address [address] [address] [place] [address] Phone Care Team Providers Care New Product Trainer Name Role Phone Cy Ailyn CHARLES Unavailable [...] Iv-surg Path Gross/micro 13 Offic/outpt E&m Estab Mod-ia 2 13 Colonoscopy Flex; W/remov Les- 13 Level Iv-surg Path Gross/micro 13 Offic/outpt E&m New Mod-hi Routine Serum Collection [id number] Advance Directives Directive Yes / No Effective Date File Name No Information Encounters Encounter Description Practice Location Reason(s) For Visit Diagnoses Date Provider Providers Copied on Encounter [facility], [address] [address], [place], [id number], [place] tel:[phone] [facility] [address], [place], [id number], [place]. tel:[phone] [facility], [address] [address], [place], [id number], [place] tel:[phone] [facility] Gallbladder polyp 3 [facility] Ailyn. [address], [address], [place], [id number], [place]. tel:[phone] Referring Provider: Referral Self, USE FOR SELF REFERRALS. Established Level [address] [facility], [address] [address], [place], [id number], [place] tel:[phone] [facility] GI Symptoms or Concerns (chief complaint) Chronic GERD 2 Akilah Villalta. [address], [address], [place], [id number], [place]. tel:[phone] Referring Provider: Referral Self, USE FOR SELF REFERRALS. [facility] [place], [address] [address], [place], [id number], [place] tel:[phone] [facility] Gallbladder polyp 2 [facility] Ailyn. [address], [address], [place], [id number], [place]. tel:[phone] [facility], [address] [address], [place], [id number], [place] tel:[phone] [facility] Hiatal herniaGastro-eso phageal reflux disease with esophagitis, without bleedingDiaphrag matic hernia without obstruction or gangrene 2 Eloy Hall. [address], [address], [place], [id number], [place]. tel:[phone] Referring Provider: Referral Self, USE FOR SELF REFERRALS. Established Level [address] [facility], [address] [address], [place], [id number], [place] tel:[phone] [facility] GI Symptoms or Concerns (chief complaint) Epigastric pain 2 Akilah Villalta. [address], [address], [place], [id number], [place]. tel:[phone] Referring Provider: Referral Self, USE FOR SELF REFERRALS. New Level [address] [facility], [address] [address], [place], [id number], [place] tel:[phone] [facility] GI Symptoms or Concerns (chief complaint) RUQ painNauseaEsopha geal spasm 1 [facility] Ailyn. [address], [address], [place], [id number], [place]. tel:[phone] Referring Provider: Referral Self, USE FOR SELF REFERRALS. [facility], [address] [address], [place], [id number], [place] tel:[phone] [facility] No Information 1 Annabelle Chávez. [address], [address], [place], [place], [id number], [place]. tel:[phone] Offic/outpt E&m Estab Mod-hi [address] [facility], [address] [address], [place], [id number], [place] tel:[phone] [facility] RUQ Pain 3 Leti Salcedo. [address], [address], [place], [id number], [place]. tel:[phone] Offic/outpt E&m Estab Mod-hi [address] [facility], [address] [address], [place], [id number], [place] tel:[phone] [facility] Abdominal pain (chief complaint) Irritable Bowel SyndromePolyp-in kerry/rect/stom-un c Beh 3 Edstrom [place] Do. [address], [facility] [address], [place], [id number], [place]. tel:[phone] Referring Provider: Kathryn Kennedy, [address] [place], [address]. tel:[phone] [facility], [address] [address], [place], [id number], [place] tel:[phone] [facility] Gastritis W/o BleedGastric DiverticulumGast ritis W/o BleedGastric Diverticulum 3 Nimco Bush. [address], [facility] [address], [place], [id number], [place]. tel:[phone] Referring Provider: Kathryn Kennedy, [address] [place], [address]. tel:[phone] Offic/outpt E&m Estab Mod-hi [address] [facility], [address] [address], [place], [id number], [place] tel:[phone] [facility] Abdominal pain (chief complaint) RUQ Pain Aug- 3 Edstrom [place] Do. [address], [facility] [address], [place], [id number], [place]. tel:[phone] Referring Provider: Kathryn Kennedy, [address], [place], [address]. tel:[phone] [facility], [address] [address], [place], [id number], [place] tel:[phone] [facility] Polyp-intes/rect /stom-unc BehAbdominal Pain, UnspecifiedBenig n Neoplasm ColonAbn X-ray GI TractBenign Neoplasm ColonAbdominal Pain, Unspecified 3 Nimco Bush. [address], [facility] [address], [place] [place], [id number], [place]. tel:[phone] Referring Provider: Kathryn Kennedy, [address], [place], [address]. tel:[phone] Offic/outpt E&m New Mod-hi [facility], [address] [address], [place], [id number], [place] tel:[phone] [facility] Abdominal pain (chief complaint) RLQ PainConstipation UnspecifiedAbn X-ray GI Tract 2 Nimco Bush. [address] [place] [address], [facility] [address], [place] [facility] [place], [id number], [place]. tel:[phone] Referring Provider: Kathryn Kennedy, [address] [place], [address]. tel:[phone] Family History Family Member Type Diagnosis Age [...] Source: Other Registry Human Rabies vaccine from [facility] diploid cell culture administered Note: [facility] bi-direc tional interface ; Source: Other Registry Human Rabies vaccine from [facility] diploid cell culture administered Note: [facility] bi-direc [...] Registry Payers Payer name Insurance type Covered libertarian ID Authorparadisea armond(s) [facility] [id number] Social History Type Description Quantity Date Captured [...] year. She previously has been seen by [facility] back in 2013 with similar symptoms. At [...] patient.2. She will proceed with ultrasound in [place] and send us the report.3. If this [...]
--- OUTSIDE RECORDS SUMMARY | 2024-01-11 19:03 | XMS_ITS | Encounter Summary ---
Author Organization [facility] Address [address] [place] [address] Care Team Providers Care Print Color Matcher Name Role Phone Mar Bundy MD Primary Care Provider [phone] Encounter Details Date Type Department Care Team (Latest Contact Info) Description 04/11/1998 Orders Only Jude Allen MD [address] [place] [address] Social History Tobacco Use Types [...] documented as of this encounter Care Teams Print Color Matcher Relationship Specialty [place] [address] [place] [address] PCP - General 04/14/07 documented as of this encounter
--- OUTSIDE RECORDS SUMMARY | 2024-01-11 19:03 | XMS_ITS | Clinical Summary ---
Author Organization [employer] Address [address] [address] Care Team Providers Care Sales Enablement Manager Name Role Phone Mar Bundy MD [...] for each transition of care or referral. [employer] Allergies Active Allergy Reactions Criticality Noted Date Comments Erythromycin 09/14/2002 Penicillins 03/26/2001 Medications Medication Sig Dispensed Refills Start Date End Date Status ALBUTEROL (PROVENTIL, VENTOLIN) 90MCG/ACT INHALERIndications:U nspecified asthma(493.90) ([facility]) 1-2 puffs every 4 hours as needed, [...] T Respiratory Rate 18 06/10/2004 4:37 PM HEDIS MANAGER Oxygen Saturation 99% 10/27/2004 2:04 PM CDT [...] 1:26 PM 01/12/2004 1:26 PM Care Teams Sales Enablement Manager Relationship Specialty [place] [address] [place] [address] PCP - General 04/14/07
--- OUTSIDE RECORDS SUMMARY | 2024-01-11 19:04 | XMS_ITS | Encounter Summary ---
Author Organization [employer] Address [address] [address] Care Team Providers Care Funeral Director Name Role Phone Mar Bundy MD Primary Care Provider [phone] Encounter Details Date Type Department Care Team [...] documented as of this encounter Care Teams Funeral Director Relationship Specialty [place] [address] [place] [address] PCP - General 04/14/07 documented as of this encounter
--- OUTSIDE RECORDS SUMMARY | 2024-01-11 19:04 | XMS_ITS | Referral Summary ---
Author Organization [facility] Address [address] [place] [address] Care Team Providers Care Community Relations Manager Name Role Phone No Ref-Primary, Physician Primary [...] of Treatment Not on file Care Teams Community Relations Manager Relationship Specialty Start Date End Date No Ref-Primary, Physician PCP - General 09/01/23
--- OUTSIDE RECORDS SUMMARY | 2024-01-11 19:04 | XMS_ITS | Clinical Summary ---
Author Organization [facility] Address [facility] [place] [address] Care Team Providers Care Emergency Technician Name Role Phone No Ref-Primary, Physician Primary [...] age to complete this topic Care Teams Emergency Technician Relationship Specialty Start Date End Date No Ref-Primary, Physician PCP - General 09/01/23
--- OUTSIDE RECORDS SUMMARY | 2024-01-11 19:04 | XMS_ITS | Encounter Summary ---
Author Organization [facility] Address [address] [facility] [place] [address] Care Team Providers Care Frameman Name Role Phone Kathryn Valladares MD Primary Care Provider [phone] [facility] Primary Care Provide r No Ref-Primary, Physician Primary Care Provider Encounter Details Date Type Department Care Team (Late st Contact Info) Description 03/03/2014 [facility] [place] [facility] [address] [place] [address] 3rd Floor,[address] [facility] [address] [place] [address] Martha Guido, MILTON CNM Social [...] on filedocumented in this encounter Care Teams Frameman Relationship Specialty Start [place] [address] [place] [address] PCP - General Family Practice 03/02/13 04/28/19 [facility] [address] [place], [place] [id number] PCP - General 04/29/19 08/31/23 No Ref-Primary, Physician PCP - General 09/01/23 documented as of this encounter
--- OUTSIDE RECORDS SUMMARY | 2024-01-11 19:04 | XMS_ITS | Encounter Summary ---
Author Organization [employer] Address [address] [address] Care Team Providers Care Staff Psychiatrist Name Role Phone Mar Bundy MD Primary Care Provider [phone] Encounter Details Date Type Department Care Team (Latest Contact Info) Description 06/03/1994 Orders Only Nemesio Rodriguez MD [address] [place] [address] Social History Tobacco Use Types Packs/Day Years [...] documented as of this encounter Care Teams Staff Psychiatrist Relationship Specialty [place] [address] [place] [address] PCP - General 04/14/07 documented as of this encounter
--- OUTSIDE RECORDS SUMMARY | 2024-01-11 19:04 | XMS_ITS | Encounter Summary ---
Author Organization [employer] Address [address], [place] [address] Care Team Providers Care Thermo Cementing Folder Operator Name Role Phone Mar Bundy MD Primary Care Provider [phone] Encounter Details Date Type Department Care Team (Latest Contact Info) Description 01/28/1996 Orders Only Nemesio Rodriguez MD [address] [place] [address] Social History Tobacco Use Types Packs/Day Years [...] documented as of this encounter Care Teams Thermo Cementing Folder Operator Relationship Specialty [place] [address] [place] [address] PCP - General 04/14/07 documented as of this encounter
--- OUTSIDE RECORDS SUMMARY | 2024-01-11 19:04 | XMS_ITS | Clinical Summary ---
Author Organization [email or web address] [facility] Address [place], [place] [address] Care Team Providers Care Whiteprinting Machine Operator Name Role Phone Pcp, No Primary Care [...] Department Care Team Description 01/07/2024 Lab Requisition [facility] [phone] Kitty Medina MD 01/01/2024 11:00 AM CDT - 01/01/2024 11:59 PM CDT Hospital Encounter [facility] [address] [place] [address] S/P left knee surgery 01/01/2024 Travel 12/30/2023 2:50 PM CDT Preop Visit [facility] [address] [place] [address] Xiomara Cartagena, Pre-Op Exam (TOTAL LAPROSCOPIC HYSTERECTOMY, BILATERAL SALPINGECTOMY, FULGURATION/EXCISIO N OF /ENTOMETRIOSIS, CYSTOSCOPY 01/07/24/ [facility] /DR MEDIAN /) 12/30/2023 Travel from Last 3 Months [...] Heart Disease Other 3 maternal great grandmother, [place] Alcoholism Paternal Grandfather Diabetes Paternal Grandfather Postmenopausal [...] file 02/24/2023 Food Insecurity Answer Date Recorded Do you worry your food will run out before you are able to buy more? 1 02/24/2023 Transportation Needs Answer Date Record ed Lack of Transportation (Medical) 1 02/24/2023 Housing Stability Answer Date Recorded What is your housing situation today? 1 02/24/2023 Sex and Gender Information Value [...] ??C (98.6 ??F) 05/27/2023 10: 55 AM SENIOR DEVELOPER Respiratory Rate 18 02/24/2023 5:58 PM SENIOR DEVELOPER Oxygen Saturation 98% 06/19/2023 1:16 PM CDT [...] EVENT Routine 01/07/2024 11 :58 AM CDT PATH TISSUE EXAM Routine 01/07/2024 11:3 5 AM CDT US VENOUS LOWER EXTREMITY LEFT GINNA 01/01/2024 [...] CDT Kitty Medina MD LAB BILL ONLY [facility] [address] [place] [address], [place] * PATH TISSUE EXAM (01/07/2024 11:35 AM CDT) Case Report Pathology Report ?Case: [id number] ? Authorizing Provider: ??Kitty Medina MD ?? Collected: ? 01/07/2024 1135 ? Ordering Location: ? [facility] ?Received: ?01/08/2024 0758 ? Pathologist: ? Shanti Hutson MD ? Specimen: ?Uterus,cervix,b ilateral fallopian tubes (no ovaries) ? 01/11/2024 5:52 PM CDT [facility]AL LABORAT[facility] Final Diagnosis A) UTERUS WITH CERVIX AND FALLOPIAN TUBES, TOTAL HYSTERECTOMY WITH BILATERAL SALPINGECTOMY: 1. Cervix: Mild chronic cervicitis with reactive changes 2. Endometrium: Inactive 3. Myometrium: Leiomyomas 4. Uterine serosa: Focal adhesions 5. Fallopian tubes: No significant histologic abnormality 6. Uterine weight: 87 grams 7. Negative for malignancy 01/11/2024 5:52 PM CDT [facility] EN[facility] Clinical Information Endometriosis, chronic pelvic pain. 01/11/2024 5:52 PM CDT [facility] Gross Description A) Received in formalin, labeled with the patient's name and Uterus,cervix,bi lateral fallopian tubes (no ovaries), is a 87 gram(uterus and cervix weight only), 8.5 x 6 x 4.5 cm hysterectomy specimen. The 4 cm long, 3.1 cm diameter cervix has a 0.5 cm cervical os. The ectocervical mucosa is smooth with a distinct squamocolumnar junction. The endocervical canal is patent. The endometrium is pink-flynn glistening averages 0.2 cm thick. No endometrial lesions are identified. ??There are 2 intramural and subserosal flynn-white whorled nodules measuring 0.2 and 1.5 cm in greatest dimension. ??No discrete foci of hemorrhage necrosis is appreciated grossly. ??Both nodules are present on the posterior wall. The myometrium is flynn firm trabecular and averages 1.6 cm thick. The serosa is smooth. There are two undesignated fimbriated segments of fallopian tube measuring 7.5 cm length by 0.5 cm in diameter included in container. Dependency Case Manager sections are submitted: 1. Anterior cervix 2. Posterior cervix 3. Anterior endomyometrium 4. Posterior with intramural nodule endomyometrium 5. ??Serosal nodule and additional strip of serosa 6-7. ??Fallopian tubes including entire fimbriated end JPW 01/08/2024 01/11/2024 5:52 PM CDT [facility] Microscopic Description The final diagnosis is based on microscopic examination of appropriate sections of all specimens. 01/11/2024 5:52 PM CDT [facility] LAB[facility] Additional Information Interpreted at [facility] Laboratory - [address], [place] [address] 01/11/2024 5:52 PM T [facility] Other (Uterus,cervix,bi lateral fallopian tubes (no ovaries)) 01/07/2024 11:35 AM CDT 01/08/2024 7:58 AM CDT Kitty Medina MD PATHOLOGY/CYTOLOG Y [facility] [address] [place] [address], [place] * US VENOUS LOWER EXTREMITY LEFT [...] @ 01/01/2024 4:51:58 PM (Electronically Signed) Xiomara Kwonxler DO [place] * CBC W PLT NO DIFF (12/30/2023 3:32 PM CDT) WHITE BLOOD CELL COUNT 8.8 3.8 - 10.8 Thousand/u L [facility] RED BLOOD CELL COUNT 4.74 3.80 - 5.10 Million/uL [facility] HEMOGLOBIN 13.8 11.7 - 15.5 g/dL [facility] HEMATOCRIT 41.2 35.0 - 45.0 % [facility] MCV 86.9 80.0 - 100.0 fL [facility] MCH 29.1 27.0 - 33.0 pg [facility] MCHC 33.5 32.0 - 36.0 g/dL [facility] Comment: For adults, a slight decrease in the calculated MCHC value (in the range of 30 to 32 g/dL) is most likely not clinically significant; however, it should be interpreted with caution in correlation with other red cell parameters and the patient's clinical condition. RDW 13.0 11.0 - 15.0 % [facility] PLATELET COUNT 235 140 - 400 Thousand/u L [facility] MPV 10.7 7.5 - 12.5 fL [facility] Blood BLOOD SPECIMEN / Unknown 12/30/2023 3:32 PM CDT 12/30/2023 3:33 PM CDT Xiomara Cartagena DO HEMATOLOGY [email or web address] [address] [place] [address], [facility] [address] [place] [address] * HPV HIGH RISK (08/04/2022 9:45 AM CDT) [facility] TYPE 16 Negative Negative 08/08/2022 2:19 PM CDT [facility] TYPE 18 Negative Negative 08/08/2022 2:19 PM CDT [facility] OTHER HIGH RISK TYPES Negative Negative 08/08/2022 2:19 PM CDT [facility] Other (Cervical) Non-Blood / Unknown 08/04/2022 9:45 AM CDT 08/05/2022 4:54 PM CDT Narrative [facility] - 08/08/2022 2:19 PM CDT HPV types 16, 18, 31, 33, 35, 39, 45, 51, 52, 56, 58, 59, 66 and 68 DNA were undetectable or below the pre-set threshold. Methodology: Dulce Ciro 4800 HPV Test Belgica Gleason MD MICROBIOLOGY [facility] [address] [place] [address], from Last 3 Months or Most Recently [...] 4:09 PM 03/04/2007 6:08 PM Care Teams Whiteprinting Machine Operator Relationship Specialty Start Date End Date Pcp, No . PCP - General 02/27/22
--- OUTSIDE RECORDS SUMMARY | 2024-01-11 19:04 | XMS_ITS | Encounter Summary ---
Author Organization [employer] Address [address] [place] [address] Care Team Providers Care Tube Winder Hand Name Role Phone Mar Bundy MD Primary Care Provider Encounter Details Date Type Department Care Team (Latest Contact Info) Description 09/22/1994 Orders Only [facility] [address] [place] [address] Social History Tobacco Use Types Packs/Day Years [...] documented as of this encounter Care Teams Tube Winder Hand Relationship Specialty [place] [address] [place] [address] PCP - General 04/14/07 documented as of this encounter
--- OUTSIDE RECORDS SUMMARY | 2024-01-11 19:04 | XMS_ITS | Encounter Summary ---
Author Organization [employer] Address [address], [place] [address] Care Team Providers Care Immigration Paralegal Name Role Phone Mar Bundy MD Primary [...] documented as of this encounter Care Teams Immigration Paralegal Relationship Specialty [place] [address] [place] [address] PCP - General 04/14/07 documented as of this encounter
[2024-01-11 19:06] LABS: Slide Review Reflex No
[2024-01-11] MEDS: KETOROLAC 15 MG/ML inj IVP (19:08)
[2024-01-11 19:19] LABS: Chloride* 99 mmol/L (96-114); Sodium* 134 mmol/L (135-149)
[2024-01-11 19:22] LABS: Anion Gap 9 mEq/L (7-15); Blood Urea Nitrogen* 6 mg/dL (5-24); Calcium* 9.4 mg/dL (8.4-10.6); Carbon Dioxide* 26 mmol/L (20-32); Creatinine* 0.6 mg/dL (0.5-1.5); Est. Creatinine Clearance* 129.69; Estimated Glomerular Filt Rate 121 ml/min; Glucose* 118 mg/dL (60-115)
[2024-01-11 20:22] VITALS: BP 109/69; PULSE 70; RESP 16; O2SAT 95
== END 2024-01-11 20:23 | disposition home or self-care (01) ==
PROVIDERS: Emergency Provider Family Medicine; PCP Family Medicine
DX: Z98.890 Other specified postprocedural states (principal); Z71.1 Person with feared health complaint in whom no diagnosis is made
CPT/HCPCS: 36415; 80048; 83605; 85025; 96374; 96375; 99283; J1171; J1885

== ENCOUNTER 2024-02-01 13:48 | Outpatient (CLI) | payer MEDICAID, SELFPAY | END 2024-02-01 13:49 | disposition home or self-care (01) | LOC: NFLDREF 13:51 | PROVIDERS: PCP Family Medicine; Visit Provider Obstetrics & Gynecology | DX: R39.11 Hesitancy of micturition (principal) | CPT/HCPCS: 87086 ==

== ENCOUNTER 2024-04-03 03:14 | Outpatient (CLI) | payer MEDICAID, SELFPAY | END 2024-04-03 03:15 | disposition home or self-care (01) | LOC: AMB 04-17 07:30 | PROVIDERS: PCP Family Medicine; Visit Provider Family Medicine | DX: T43.221A Poisoning by selective serotonin reuptake inhibitors, accidental (unintentional), initial encounter (principal); Y92.009 Unspecified place in unspecified non-institutional (private) residence as the place of occurrence of the external cause | CPT/HCPCS: A0425; A0427 ==

== ENCOUNTER 2024-04-03 03:45 | Emergency (ER) | payer MEDICAID, SELFPAY ==
--- OUTSIDE RECORDS SUMMARY | 2024-04-03 03:46 | XMS_ITS | Clinical Summary ---
Author Organization [employer] Address [address] [place] [address] Care Team Providers Care Mold Capper Helper Name Role Phone No Ref-Primary, Physician Primary Care Provider Allergies Active Allergy Reactions Criticality Noted Date Comments Azithromycin 07/22/2012 Erythromycin 04/02/2011 Penicillins 04/02/2011 Medications Acetaminophen (TYLENOL PO) Active etonogestrel-ethi nyl estradiol (NUVARING) 0.12-0.015 MG/24HR vaginal ringIndications:R outine gynecological examination,Other general counseling and advice for contraceptive management,Contra ception Place 1 each vaginally every 21 days for 1 dose 3 each 4 4 Active Additional Information Patient not taking.Reported on 04/19/2018 norethindrone-eth inyl estradiol-iron (MICROGESTIN FE1.5/30) 1.5-30 MG-MCG tablet Take 1 tablet by mouth daily Active Active Problems Problem Noted Date Diagnosed Date Contraception condoms and NuvaRing new start 02/2014 Irritable bowel syndrome -- constipation predomi katelin 03/03/2014 Encounter for routine gynecological examination 03/01/2014 Overview (12/22/2014): 2016: Screen pap due. 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 Not on file Not on file Not on file Last Filed Vital Signs Vital Sign Reading Time Taken Comments Blood Pressure 119/89 09/01/2023 2:19 PM CDT Pulse 74 09/01/2023 2:14 PM CDT Temperature 36.2 C (97.2 F) 09/01/2023 2:14 PM CDT Respiratory Rate 18 09/01/2023 2:14 PM CDT [...] 06/14/19 16, 03/03/2014, 01/12/2004, Additional history exists COVID-19 Vaccine ( season) 2023 INFLUENZA VACCINE (#1) 2023 03/03/2013, 2002 PHQ-2 (once per calendar year) 2024 PAP 08/04/2025 08/04/2022 DTAP/TDAP/TD IMMUNIZATION (8 - Td or Tdap) 11/22/2029 11/23/2019, 09/06/2009, 11/10/2002, Additional history exists RSV VACCINE (1 - 1-dose 75+ series) 2065 HEPATITIS B IMMUNIZATION Completed 994, 01/01/1993, 11/19/1992 MENINGITIS IMMUNIZATION Aged Out No l onger eligible based on patient's age to complete this topic Pneumococcal Vaccine: Pediatrics (0 to 5 Years) and At-Risk Patients (6 to 49 Years) Aged Out No longer eligible based on patient's age to complete this topic RSV MONOCLONAL ANTIBODY Aged Out No l onger eligible based on patient's age to complete this topic Insurance [facility]NAG[facility] Care Teams Mold Capper Helper Relationship Specialty Start Date End Date No Ref-Primary, Physician PCP - General 09/01/23
--- OUTSIDE RECORDS SUMMARY | 2024-04-03 03:46 | XMS_ITS | Patient Health Record ---
Author Organization [facility] Address [address] [place] [address] Care Team Providers Care Senior Sql Database Developer Name Role Phone Deanna Soria Primary Care Provider Radha Valiente Unavailable [phone] Allergies Allergen (clinical drug ingredient) Drug/Non Drug [...] Problem Status W/U Status Risk Notes Problem 212452675 Endometriosis determined by laparoscopy (N80.9) Active confirmed Problem 238961594 Anxiety with depression (F41.8) Active confirmed Problem 473481781 Hypothyroidism (acquired) (E03.9) Active confirmed Plan Of Treatment No Information Insurance Providers Payer Name Payer Address Payer Phone Subscriber Number Group Number Insured Name Patient Relationship to Insured Coverage Start Date Coverage End Date [employer] 2021 JOE (CLIENT bill) [address] [place], [place] [id number] Martina Au Self - patient is the insured [place] Care Medicaid (Ins. Bill) [address] [address] [place], [place] [id number] Roe , Martina Self - patient is the insured Medical (General) History Medical History History ICD Code Endometriosis Ovarian Cysts Depression / Anxiety Thyroid Problem Surgical History Surgery Date(Month/Year) Cyst; Left Wrist Tonsillectomy / Adenoidectomy Laparscopy 06/2021 [place] Teeth Removed
--- OUTSIDE RECORDS SUMMARY | 2024-04-03 03:46 | XMS_ITS | Continuity of Care Document ---
Author Name [facility] Address Unknown Organization Unknown Address Unknown Encounters FILTER APPLIED:Only known Encounters with Admission Date within the last 5 years Encounter Location Admission Discharge Billing Code Railroad Car Loader Marcia pickett Emergency [facility] Outpatient [id number]
--- OUTSIDE RECORDS SUMMARY | 2024-04-03 03:46 | XMS_ITS | Clinical Summary ---
Author Organization [facility] Address [place], [place] [address] Care Team Providers Care Record Filing Clerk Name Role Phone Pcp, No Primary Care Provider Unavailabl e Allergies Active Allergy Reactions Criticality Noted Date Comments Amitriptyline-Chlordiazepoxi de Hives,Nausea And Vomiting Medium 06/14/2015 Azithromycin Nausea And Vomiting Medium 03/03/2013 Erythromycin Nausea And Vomiting 03/03/2007 Penicillins Rash,Hives High 03/03/2007 Medications ibuprofen (ADVIL; MOTRIN) 200 mg tabletIndications: Pelvic pain Take 3 Tablets (600 mg) by mouth every 6 hours if needed for Pain (mild pain). 100 Tablet 07/10/19 22 Active oxyCODONE 10 mg tablet Take 10 mg by mouth four times daily. 11/06/19 22 Active escitalopram oxalate (LEXAPRO) 10 mg tabletIndications: Depression with anxiety Take 1 Tablet (10 mg) by mouth every morning. 90 Tablet 3 08/05/19 23 Active norethin morgan-eth estrad-fe, 1.5-30 mg-mcg, (Blisovi Fe 1.5/30, 28,) 1.5 mg-30 mcg (21)/75 mg (7) tabletIndications: Menorrhagia with irregular cycle Take 1 Tablet by mouth once daily. 112 Tablet 2 08/24/19 24 Active buprenorphine HCL (SUBUTEX) [address] 8 mg under the tongue. Take 1 tab SUBLINGUALLY 3 TIMES A DAY. Keep under tongue for a full 30 min before eating/drinking. Wait 1-2h before taking oxycodone. Decrease to no more than 12 TO 16mg 24 hours before surgery.* 12/21/19 24 Active ondansetron (ZOFRAN ODT) [address] 4 mg on the tongue every 6 hours if needed for Nausea/Vomiting. 08/31/19 24 Active Active Problems Problem Noted Date Diagnosed [...] Department Care Team Description 01/07/2024 Lab Requisition [facility] [phone] Kitty Devine MD from Last 3 Months Immunizations Name Administration [...] lupus Unknown Other 2 mom's cousin, M omartiple sclerosis Heart Disease Other 3 maternal great grandmother, [place] Alcoholism Paternal Grandfather Diabetes Paternal Grandfather Postmenopausal [...] 2 08/04/2022 Social Connections Answer Date Recorded Do you often feel lonely or isolated from those around you? 0 02/24/2023 Financial Resource Strain Answer Date R ecorded Difficulty of Paying Living Expenses 3 02/24/2023 Difficulty of Paying Living Expenses Not on file 02/24/2023 Food Insecurity Answer Date Recorded Do you worry your food will run out before you are able to buy more? 1 02/24/2023 Transportation Needs Answer Date Record ed Does lack of transportation keep you from medica l appointments? 1 02/24/2023 Does lack of transportation keep you from work, meetings or getting things that you need? 1 02/24/2023 Housing Stability Answer Date Recorded What is your housing situation today? 1 02/24/2023 Comments No Sex and Gender Information Value Date Recorded Sex Assigned at Not on file Legal Sex Female 6:15 AM GRINDER AND HONER OPERATOR AUTOMATIC Gender Identity Not on file Sexual Orientation Not on file Occupation Industry Job Start Date Job End Date Not on file Not on file Not on file Not on file Obstetrics History Para Term AB IAB SAB Ectopic Multiple Livin g Live Births 0 0 0 0 0 0 0 0 0 0 0 Last Filed Vital Signs Vital Sign Reading Time Taken Comments Blood Pressure 94/67 12/30/2023 2:54 PM CDT Pulse 56 12/30/2023 2:54 PM CDT Temperature 37 C (98.6 F) 05/27/2023 10:55 AM GRINDER AND HONER OPERATOR AUTOMATIC Respiratory Rate 18 02/24/2023 5:58 PM GRINDER AND HONER OPERATOR AUTOMATIC Oxygen Saturation 98% 06/19/2023 1:16 PM CDT [...] exists Pap test for age 21-65 08/05/2027 , 08/04/2022, 11/17/2018 (Verified in Care Everywhere or Patient Record), Additional history exists Tetanus booster 11/22/2029 11/23/2019, 08/21, 11/10/2002 Tdap Completed 11/23/2019, 09/06/2009 Pneumococcal series for age 6-49 Aged Out No longer eligible based on patient's age to complete this topic Procedures Procedure Name Priority Date/Time Associated Diagnosis Comments LAB TRACKING EVENT Routine 01/07/2024 11 :58 AM CDT PATH TISSUE EXAM Routine 01/07/2024 11:3 5 AM CDT HPV HIGH RISK Routine 08/04/2022 9:45 AM CDT Pap smear for cervical cancer screening from Last 3 Months or Most Recently Relevant to Health Maintenance Results * LAB TRACKING EVENT (01/07/2024 11:58 AM CDT) Other (Other) Client Collect / Unknown 01/07/2024 11:58 AM CDT 01/07/2024 10:19 PM CDT Kitty Devine MD LAB BILL ONLY Final Res ult [facility] [address] [place] [address], * PATH TISSUE EXAM (01/07/2024 11:35 AM CDT) Case Report Pathology Report Case: [id number] Authorizing Provider: Kitty Devine MD Collected: 01/07/2024 1135 Ordering Location: [facility] Received: 01/08/2024 0758 Pathologist: Shanti Hutson MD Specimen: Uterus,cervix,carolina ateral fallopian tubes (no ovaries) 01/11/2024 5:52 PM CDT [facility] Final Diagnosis A) UTERUS WITH CERVIX AND FALLOPIAN TUBES, TOTAL HYSTERECTOMY WITH BILATERAL SALPINGECTOMY: 1. Cervix: Mild chronic cervicitis with reactive changes 2. Endometrium: Inactive 3. Myometrium: Leiomyomas 4. Uterine serosa: Focal adhesions 5. Fallopian tubes: No significant histologic abnormality 6. Uterine weight: 87 grams 7. Negative for malignancy 01/11/2024 5:52 PM CDT [facility] Clinical Information Endometriosis, chronic pelvic pain. 01/11/2024 5:52 PM CDT [facility] Gross Description A) Received in [...] cm thick. No endometrial lesions are identified. There are 2 intramural and subserosal flynn-white whorled nodules measuring 0.2 and 1.5 cm in greatest dimension. No discrete foci of hemorrhage necrosis is appreciated grossly. Both nodules are present on the posterior wall. The myometrium is flynn firm trabecular and averages 1.6 cm thick. The serosa is smooth. There are two undesignated fimbriated segments of fallopian tube measuring 7.5 cm length by 0.5 cm in diameter included in container. Learn To Swim Instructor sections are submitted: 1. Anterior cervix 2. Posterior cervix 3. Anterior endomyometrium 4. Posterior with intramural nodule endomyometrium 5. Serosal nodule and additional strip of serosa 6-7. Fallopian tubes including entire fimbriated end JPW 01/08/2024 01/11/2024 5:52 PM CDT [facility] Microscopic Description The final diagnosis is based on microscopic examination of appropriate sections of all specimens. 01/11/2024 5:52 PM CDT [facility] Additional Information Interpreted at [facility] - [address] [facility] [address], [place] [address] 01/11/2024 5:52 PM CDT [facility] Other (Uterus,cervix,bi lateral fallopian tubes (no ovaries)) 01/07/2024 11:35 AM CDT 01/08/2024 7:58 AM CDT Kitty Devine MD PATHOLOGY/CYTOLOGY Final Result [facility] [address] [place] [address], * HPV HIGH RISK (08/04/2022 9:45 AM CDT) TYPE 16 Negative Negative 08/08/2022 2:19 PM CDT [facility] TYPE 18 Negative Negative 08/08/2022 2:19 PM CDT [facility] OTHER HIGH RISK TYPES Negative Negative 08/08/2022 2:19 PM CDT [facility] Other (Cervical) Non-Blood / Unknown 08/04/2022 9:45 AM CDT 08/05/2022 4:54 PM CDT Narrative [facility] - 08/08/2022 2:19 PM CDT HPV types 16, 18, 31, 33, 35, 39, 45, 51, 52, 56, 58, 59, 66 and 68 DNA were undetectable or below the pre-set threshold. Methodology: Dulce Ciro 4800 HPV Test us Belgica Gleason MD MICROBIOLOGY Final Result [facility] [address] [place] [address], from Last 3 Months or Most Recently Relevant to Health Maintenance Insurance [facility] Advance Directives * Full Code (Latest Code [...] 4:09 PM 03/04/2007 6:08 PM Care Teams Record Filing Clerk Relationship Specialty Start Date End Date Pcp, No . PCP - General 02/27/22
[2024-04-03 03:47] VITALS: BP 118/77; PULSE 64; RESP 16; TEMP 35.8; O2SAT 97; BMI 37.3
--- OUTSIDE RECORDS SUMMARY | 2024-04-03 03:47 | XMS_ITS | Clinical Summary ---
Author Organization [facility] Address [address], [place] [address] Care Team Providers Care Occupational Therapy Supervisor Name Role Phone Mar Bundy MD Primary [...] for each transition of care or referral. [facility] Allergies Active Allergy Reactions Criticality Noted Date Comments Erythromycin 09/14/2002 Penicillins 03/26/2001 Medications Medication Sig Dispensed Refills Start Date End Date Status ALBUTEROL (PROVENTIL, VENTOLIN) 90MCG/ACT INHALERIndications:U nspecified asthma(493.90) ([facility]) 1-2 puffs every 4 hours as needed, [...] 68 10/27/2004 2:04 PM CDT Temperature 36.2 C (97.1 F) 10/27/2004 2:04 PM CDT Respiratory Rate 18 06/10/2004 4:37 PM DESK REPRESENTATIVE Oxygen Saturation 99% 10/27/2004 2:04 PM CDT [...] 03/31/2013 03/03/2013 DTaP/Tdap/Td (7 - Tdap) 09/07/2019 09/07/19 10, 11/10/2002, 07/23/1995, Additional history exists COVID-19 Vaccine [...] 1:26 PM 01/12/2004 1:26 PM Care Teams Occupational Therapy Supervisor Relationship Specialty [place] [address] [place] [address] PCP - General 04/14/07
--- OUTSIDE RECORDS SUMMARY | 2024-04-03 03:47 | XMS_ITS | Encounter Summary ---
Author Organization [employer] Address [address], [place] [address] Care Team Providers Care Reference Archivist Name Role Phone Mar Bundy MD Primary [...] documented as of this encounter Care Teams Reference Archivist Relationship Specialty [place] [address] [place] [address] PCP - General 04/14/07 documented as of this encounter
--- OUTSIDE RECORDS SUMMARY | 2024-04-03 03:47 | XMS_ITS | Referral Summary ---
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
--- OUTSIDE RECORDS SUMMARY | 2024-04-03 03:47 | XMS_ITS | Encounter Summary ---
Author Organization [facility] Address [address] [facility] [place] [address] Care Team Providers Care Multimedia Programmer Name Role Phone Kathryn Valladares MD Primary Care Provider [phone] [facility] Primary Care Provide r No Ref-Primary, Physician Primary Care Provider Encounter Details Date Type Department Care Team (Late st Contact Info) Description 03/03/2014 [facility] [place] [facility] [address] [place] [address] 3rd Floor,[address] [place] [facility] [address] [place] [address] Martha Guido, COMMUNITY REPRESENTATIVE CNM Social History Tobacco Use Types Packs/Day Years Used Date Smoking Tobacco: Never Smokeless Tobacco: Never Alcohol Use Standard Drinks/Week Comments No 0 (1 standard drink = 0.6 oz pur e alcohol) Comments No Sex and Gender Information Value Date Recorded Sex Assigned at Not on file 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 Gender Identity Not on file Sexual Orientation Not on file 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
--- OUTSIDE RECORDS SUMMARY | 2024-04-03 03:47 | XMS_ITS | Encounter Summary ---
Author Organization [facility] [employer] [facility] Address [address], [place] [address] Care Team Providers Care Leaf Tier Name Role Phone Mar Bundy MD Primary Care Provider [phone] Encounter Details Date Type Department Care Team (Latest Contact Info) Description 06/03/1994 Orders Only Nemesio Rodriguez MD [address] [place] [address] Social History Tobacco Use Types Packs/Day Years [...] documented as of this encounter Care Teams Leaf Tier Relationship Specialty [place] [address] [place] [address] PCP - General 04/14/07 documented as of this encounter
--- OUTSIDE RECORDS SUMMARY | 2024-04-03 03:47 | XMS_ITS | Encounter Summary ---
Author Organization [employer] Address [address], [place] [address] Care Team Providers Care Open Claims Representative Name Role Phone Mar Bundy MD Primary [...] documented as of this encounter Care Teams Open Claims Representative Relationship Specialty [place] [address] [place] [address] PCP - General 04/14/07 documented as of this encounter
--- OUTSIDE RECORDS SUMMARY | 2024-04-03 03:47 | XMS_ITS | Encounter Summary ---
Author Organization [facility] Address [address] [place] [address] Care Team Providers Care Political Aide Name Role Phone Mar Bundy MD Primary Care Provider [phone] Encounter Details Date Type Department Care Team (Latest Contact Info) Description 04/11/1998 Orders Only Jude Allen MD [address] [place] [address] Social History Tobacco Use Types [...] documented as of this encounter Care Teams Political Aide Relationship Specialty [place] [address] [place] [address] PCP - General 04/14/07 documented as of this encounter
--- OUTSIDE RECORDS SUMMARY | 2024-04-03 03:47 | XMS_ITS | Encounter Summary ---
Author Organization [employer] Address [address] [place] [address] Care Team Providers Care Patient Access Manager Name Role Phone Mar Bundy MD Primary Care Provider [phone] Encounter Details Date Type Department Care Team (Latest Contact Info) Description 09/22/1994 Orders Only [facility] [address] [place] [address] Social History Tobacco Use Types Packs/Day Years [...] documented as of this encounter Care Teams Patient Access Manager Relationship Specialty [place] [address] [place] [address] PCP - General 04/14/07 documented as of this encounter
--- OUTSIDE RECORDS SUMMARY | 2024-04-03 03:47 | XMS_ITS | Encounter Summary ---
Author Organization [facility] Address [address] [address] Care Team Providers Care Restaurant Busser Name Role Phone Mar Bundy MD Primary Care Provider [phone]- [phone] Encounter Details Date Type Department Care Team (Latest Contact Info) Description 01/28/1996 Orders Only Nemesio Rodriguez MD [address] [place] [address] Social History Tobacco Use Types Packs/Day Years [...] documented as of this encounter Care Teams Restaurant Busser Relationship Specialty [place] [address] [place] [address] PCP - General 04/14/07 documented as of this encounter
--- NOTE | 2024-04-03 03:56 | ED.GENADULT ---
HPI - General Adult General Chief complaint: Overdose Stated complaint: overdose Time Seen by Provider: 04/03/24 03:56 History of Present Illness HPI narrative: accidental OD on prescribed Lexapro, approx . 1 hour ago took 60mg of lexapro, thought it was a different med , states she is not suicidal, and it was not an intentional overdose. EMS contacted by patient. patient feels very tired, nausea. 33-year-old woman presenting to the emergency department following accidental overdose on Lexapro. Confused with another medication took 60 mg when she should have taken 10. She is tired and nauseated. Has not been vomiting. Denies suicidality; at this was not intentional. She did call for EMS. Ingestion was about an hour prior to arrival she clarifies 2 a.m. later. Prior to my seeing Martina, poison Control has been contacted. Recommending observation with peak affect occurring 6 hours later. Monitor for QT prolongation. Accompanied here later by mom. Related Data Home Medications ?Medication ?Instructions ?Recorded ?Confirmed oxycodone 10 mg tablet 10 mg PO Q6H 04/21/22 04/03/24 norethindrone 1.5 mg-ethinyl 1 tab PO DAILY 06/17/23 04/03/24 estradiol 30 mcg(21)/iron 75 mg(7) tablet (Blisovi Fe 1.5/30 (28)) escitalopram oxalate 10 mg tablet 10 mg PO QDAY 11/24/23 04/03/24 (Lexapro) buprenorphine HCl 8 mg sublingual 8 mg sublingual TID 02/01/24 04/03/24 tablet Previous Rx's ?Medication ?Instructions ?Recorded acetaminophen 325 mg tablet 650 mg (2 x 325 mg) PO Q6H 15 days 01/09/24 #100 tabs gabapentin 300 mg capsule 300 mg PO BID 30 days #60 caps 01/09/24 ibuprofen 400 mg tablet 400 mg PO TIDWM 15 days #45 tabs 01/09/24 polyethylene glycol 3350 17 gram 17 g PO DAILY PRN #0 ea 01/09/24 oral powder packet (Miralax) lidocaine 5 % topical ointment 1 applic topical BID PRN pain #30 02/23/24 grams Allergies Allergy/AdvReac Type Severity Reaction Status Date / Time azithromycin Allergy Mild Unknown Verified 02/23/24 08:28 Penicillins Allergy Mild Hives Verified 02/23/24 08:28 erythromycin base Allergy Unknown Unknown Verified 02/23/24 08:28 amitriptyline Allergy Rash Verified 02/23/24 08:28 chlordiazepoxide Allergy Rash Verified 02/23/24 08:28 Review of Systems Status of ROS: Reports: 6 or more systems reviewed and unremarkable except as noted in History and below [facility] History Endometriosis ?N80.9 - Endometriosis, unspecified (ICD-10) Dysmenorrhea ?N94.6 - Dysmenorrhea, unspecified (ICD-10) Pain in pelvis ?R10.2 - Pelvic and perineal pain (ICD-10) Opioid dependence ?F11.20 - Opioid dependence, uncomplicated (ICD-10) IBS (irritable bowel syndrome) ?K58.9 - Irritable bowel syndrome without diarrhea (ICD-10) Trigger point ?M79.10 - Myalgia, unspecified site (ICD-10) Hiatal hernia ?K44.9 - Diaphragmatic hernia without obstruction or gangrene (ICD-10) History of kidney stones ?Z87.442 - Personal history of urinary calculi (ICD-10) History of ovarian cyst ?Z87.42 - Personal history of other diseases of the female genital tract (ICD-10) Surgical History Status post laparoscopic hysterectomy (01/07/24) ?Z90.710 - Acquired absence of both cervix and uterus (ICD-10) History of dental surgery ?Z92.89 - Personal history of other medical treatment (ICD-10) H/O laparoscopy ?Z98.890 - Other specified postprocedural states (ICD-10) History of surgical removal of ganglion cyst ?Z98.890 - Other specified postprocedural states (ICD-10) History of tonsillectomy ?Z90.89 - Acquired absence of other organs (ICD-10) Family History Mother High blood pressure Multiple sclerosis Grandfather Diabetes Aunt Leukemia Other Colon cancer High cholesterol Osteoporosis Ovarian cancer Social History What is your current living situation?: I presently have a place to live Problems where you live: no known problems In the past 12 months, utilities in danger of being shut off: no In past 12 months, lack of transportation kept you from medical appts, meetings, work, or getting things needed for daily living: no In the past 12 mos, have been you worried that your food would run out before you had money to buy more?: never true In the past 12 mos, the food you bought just didn't last and you didn't have money to buy more?: never true Smoking Status: Never smoker Second hand tobacco smoke exposure: No How often do you have a drink containing alcohol: never AUDIT-C Alcohol total score: 0 Non-prescribed substance use: opiods/painkillers Caffeine: No How often does anyone, including family, friends and others, physically hurt you: never How often does anyone, including family, friends and others, insult or talk down to you: never How often does anyone, including family, friends and others, threaten you with harm: never How often does anyone, including family, friends and others, scream or curse at you: never service: No Exam Narrative: Exam Narrative: Pleasant. NAD. Breathing easily. Lungs are clear. Heart in regular rate and rhythm. Cranial nerves 2-12 intact. Pupils are 3-4 mm and equal and briskly reactive. No nystagmus. Does appear tired generally. Moving all extremities without difficulty. No evidence of self-harm activity otherwise. Const: Vital Signs, click to edit/add: Vital Signs - 24 hr 04/03/24 03:47 Temperature 96.4 F L Pulse Rate [Pulse Oximeter] 64 Respiratory Rate 16 Blood Pressure [Ri ght Upper Arm] 118/77 Pulse Oximetry 97 Oxygen Delivery Me thod Room Air Documenting provider has reviewed patient's vital signs: yes Course Vital Signs Vital signs: Initial Vital Signs Temperature 96.4 F L 04/03/24 03:47 Temperature Source Temporal Artery Scan 04/03/24 03:47 Pulse Rate 64 04/03/24 03:47 Respiratory Rate 16 04/03/24 03:47 Blood Pressure 118/77 04/03/24 03:47 Blood Pressure Mean 90 04/03/24 03:47 Blood Pressure Position Supine 04/03/24 03:47 Pulse Oximetry 97 04/03/24 03:47 Oxygen Delivery Method Room Air 04/03/24 03:47 Vital Signs Temperature 96.4 F L 04/03/24 03:47 Pulse Rate 64 04/03/24 03:47 Respiratory Rate 16 04/03/24 03:47 Blood Pressure 118/77 04/03/24 03:47 Pulse Oximetry 97 04/03/24 03:47 Oxygen Delivery Method Room Air 04/03/24 03:47 Temperature 96.4 F L 04/03/24 03:47 Pulse Rate 54 L 04/03/24 08:24 Respiratory Rate 14 04/03/24 08:24 Blood Pressure 118/77 04/03/24 08:24 Pulse Oximetry 97 04/03/24 03:47 Oxygen Delivery Method Room Air 04/03/24 03:47 Medical Decision Making MDM Narrative Medical decision making narrative: Does not appear to be an intentional act. Will monitor for QT prolongation in other symptoms. Treat for nausea. She is protecting her own airway though at this time. Does not sound as though will need to check other labs of overdose or at least pending worsening. I did review initial EKG with QT of 444 QTC of 446. Normal sinus. Rate of 61. EKG reviewed by me 6 hours after ingestion with subtly longer QT --essentially unchanged. No interventions were required during time in the emergency department. No further events. She did sleep. Was requesting departure from the ER at about 5 hours post ingestion. I think is safe for discharge with stable vitals and was more alert and easily ambulatory from the ER with mother. Medical Records Medical records reviewed: Yes I reviewed the patient's medical records Critical Care Time Critical Care Time Critical Care Time: Yes Attestation: The patient required my highest level preparedness to intervene emergently and I personally spent this critical care time directly and personally managing the patient. This critical care time included: Obtaining a history; Examining the patient; Pulse oximetry; Ordering and reviewing of studies; Arranging urgent treatment with development of a management plan; Evaluation of patients response to treatment; Frequent reassessment discussions with other providers. This critical care time was performed to assess and manage the high probability of imminent life-threatening deterioration that could result in multiorgan failure. It was exclusive of separate billable procedures and treating other patients and teaching time. Total Critical Care Time in Minutes: 40 Discharge Plan Discharge Clinical Impression: Accidental drug ingestion Patient Disposition: Home w/ Parent or Adult Condition: Improved Additional Instructions: Stay well-hydrated. Return for unusual somnolence, shortness of breath, chest pain. Prescriptions: No Action oxycodone 10 mg tablet 10 mg PO Q6H Patient Comments: 4 times a day buprenorphine HCl 8 mg tablet, sublingual 8 mg sublingual TID lidocaine 5 % ointment 1 applic topical BID PRN (Reason: pain) Qty: 30 0RF norethindrone-e.estradiol-iron [Blisovi Fe 1.5/30 (28)] 1.5 mg-30 mcg (21)/75 mg (7) tablet 1 tab PO DAILY escitalopram oxalate [Lexapro] 10 mg tablet 10 mg PO QDAY acetaminophen 325 mg Tablet 650 mg PO Q6H 15 Days Qty: 100 0RF ibuprofen 400 mg Tablet 400 mg PO TIDWM 15 Days Qty: 45 0RF gabapentin 300 mg Capsule 300 mg PO BID 30 Days Qty: 60 0RF polyethylene glycol 3350 [Miralax] 17 gram Powder In Packet 17 g PO DAILY PRNQty: 0 0RF Follow Up/Referrals: Xiomara Cartagena DO [Primary Care Provider] - Stand [facility]one [facility] Info Instructions
--- NOTE | 2024-04-03 04:55 | ED.NURSE ---
Poison control called, gave update on patient.
[2024-04-03 08:24] VITALS: BP 118/77; PULSE 54; RESP 14
== END 2024-04-03 08:30 | disposition home or self-care (01) ==
PROVIDERS: Emergency Provider Family Medicine; PCP Family Medicine
DX: T43.221A Poisoning by selective serotonin reuptake inhibitors, accidental (unintentional), initial encounter (principal)
CPT/HCPCS: 99284; 99291; 99292

== ENCOUNTER 2024-08-08 11:08 | Outpatient (CLI) | payer MEDICAID, SELFPAY | END 2024-08-08 11:09 | disposition home or self-care (01) | LOC: AMB 08-11 09:19 | PROVIDERS: PCP Family Medicine; Visit Provider Family Medicine | DX: R10.9 Unspecified abdominal pain (principal); R11.2 Nausea with vomiting, unspecified | CPT/HCPCS: A0998 ==

== ENCOUNTER 2024-08-08 15:43 | Emergency (ER) | payer MEDICAID, SELFPAY ==
--- OUTSIDE RECORDS SUMMARY | 2024-08-08 15:45 | XMS_ITS | Clinical Summary ---
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 Not on file Not [...] history exists COVID-19 Vaccine ( season) 2023 PHQ-2 (once per calendar year) 2024 INFLUENZA VACCINE (Season Ended) 2024 03/03/2013, 02/23/2003 PAP 08/04/2025 08/04/2022 DTAP/TDAP/TD IMMUNIZATION (8 - Td or Tdap) 11/22/2029 11/23/2019, 09/06/2009, 11/10/2002, Additional history exists ZOSTER IMMUNIZATION (1 of 2) 2040 HEPATITIS B IMMUNIZATION Completed 994, 01/01/1993, 11/19/1992 MENINGITIS IMMUNIZATION Aged Out No l onger eligible based on patient's age to complete this topic Pneumococcal Vaccine: Pediatrics (0 to 5 Years) and At-Risk Patients (6 to 49 Years) Aged Out No longer eligible based on patient's age to complete this topic Insurance [facility] [employer] Care Teams Recovery Unit Operator Relationship Specialty Start Date End Date No Ref-Primary, Physician PCP - General 09/01/23
--- OUTSIDE RECORDS SUMMARY | 2024-08-08 15:45 | XMS_ITS | Clinical Summary ---
Author Organization [facility] Address [address] [address] Care Team Providers Care Propulsion Motor And Generator Repairer Name Role Phone Mar Bundy MD Primary [...] for each transition of care or referral. [facility] Allergies Active Allergy Reactions Criticality Noted Date Comments Erythromycin 09/14/2002 Penicillins 03/26/2001 Medications * This document contains information received from the source organization and may not represent a complete record from that organization. ALBUTEROL (PROVENTIL, VENTOLIN) 90MCG/ACT INHALERIndicati ons:Unspecified asthma(493.90) (HRC) 1-2 puffs every 4 hours as needed, with a chamber 1 99 4 Active Additional Information Patient not taking.Reported on 01/10/2021 ZITHROMAX Z-RACHEL 250 MG OR TABS use as directed one 0 5 Active Additional Information Patient not taking.Reported on 01/10/2021 GUIATUSS AC 10-100 MG/5ML OR SYRP 1-2 teaspoons by mouth at bed time 120 ml 0 5 Active Additional Information Patient not taking.Reported on 01/10/2021 Active Problems Problem Noted Date Diagnosed Date Binge-eating disorder, mild 05/20/2021 Depressive disorder 05/20/2021 Immunizations Immunization Administration Dates Next Due DTP 12/09/1991,1990,1990 ,1990 [...] at Not on file Legal Sex Female 4:50 AM CDT Gender Identity Not on file Sexual Orientation Not on file Last Filed Vital Signs Vital Sign Reading Time Taken Comments Blood Pressure 106/56 01/12/2004 9:55 AM CDT Pulse 68 10/27/2004 2:04 PM CDT Temperature 36.2 C (97.1 F) 10/27/2004 2:04 PM CDT Respiratory Rate 18 06/10/2004 4:37 PM THREAD TWISTER Oxygen Saturation 99% 10/27/2004 2:04 PM CDT [...] (2 - 3-dose series) 03/31/2013 03/03/2013 DTaP/Tdap/Td Vaccine (7 - Tdap) 09/07/2019 09/06/2009, 11/10/2002, 07/23/1995, Additional history exists COVID-19 Vaccine ( season) 2023 05/17/2020, 04/19/2020 Influenza Vaccine (Season Ended) 2024 03/03/2013, 02/23/2003 Zoster/Shingles Vaccine (1 of 2) 2040 Hib Vaccine Completed 08/26/1991, 11/1990, 1990 HepB Vaccine Completed 01/22/1994, 12/21, 11/19/1992 IPV (Polio) Vaccine Completed 07/23/1995, 12/09/1991, 1990, Additional history exists HepA Vaccine Aged Out 03/03/2013, 07/30/2012 No lo nger eligible based on patient's age to complete this topic MCV4 Vaccine Aged Out No longer eligi ble based on patient's age to complete this topic Meningococcal B Vaccine Aged Out No l onger eligible based on patient's age to complete this topic Pneumococcal Vaccine Aged Out No long er eligible based on patient's age to complete this topic Insurance Advance Directives * No Code Status (Latest Code Status on File) Date Activated Date Inactivated Comments 01/12/2004 1:26 PM 01/12/2004 1:26 PM Care Teams Propulsion Motor And Generator Repairer Relationship Specialty [place] [address] [place] [address] PCP - General 04/14/07
--- OUTSIDE RECORDS SUMMARY | 2024-08-08 15:45 | XMS_ITS | Encounter Summary ---
Author Organization [facility] Address [address] [address] Care Team Providers Care Cardiology Coordinator Name Role Phone Mar Bundy MD Primary Care Provider Encounter Details Date Type Department Care Team (Latest Contact Info) Description 09/20/1994 Orders Only Jean Carlos Pacheco MD Social History Tobacco Use Types Packs/Day Years Used Date Smoking Tobacco: Never Assessed Comments Unknown Sex and Gender Information Value Date Recorded [...] documented as of this encounter Care Teams Cardiology Coordinator Relationship Specialty [place] [address] [place] [address] PCP - General 04/14/07 documented as of this encounter
--- OUTSIDE RECORDS SUMMARY | 2024-08-08 15:45 | XMS_ITS | Encounter Summary ---
Author Organization [facility] [facility] Address [address] [place] [address] Care Team Providers Care Senior Structural Engineer Name Role Phone Mar Bundy MD Primary Care Provider [phone] Encounter Details Date Type Department Care Team (Latest Contact Info) Description 04/11/1998 Orders Only Jude Allen MD [address] [place], [place] [id number] Social History Tobacco Use Types Packs/Day Years [...] documented as of this encounter Care Teams Senior Structural Engineer Relationship Specialty [place] [address] [place] [address] PCP - General 04/14/07 documented as of this encounter
--- OUTSIDE RECORDS SUMMARY | 2024-08-08 15:45 | XMS_ITS | Encounter Summary ---
Author Organization [facility] [employer] Address [address], [place] [address] Care Team Providers Care Med Spec Name Role Phone Mar Bundy MD Primary Care Provider [phone] Encounter Details Date Type Department Care Team (Latest Contact Info) Description 01/28/1996 Orders Only Nemesio Rodriguez MD [address] [place] [address] Social History Tobacco Use Types Packs/Day Years [...] documented as of this encounter Care Teams Med Spec Relationship Specialty [place] [address] [place] [address] PCP - General 04/14/07 documented as of this encounter
--- OUTSIDE RECORDS SUMMARY | 2024-08-08 15:45 | XMS_ITS | Patient Health Record ---
Author Organization [facility] Address [address] [place] [address] Care Team Providers Care Tip Mender Name Role Phone Deanna Soria Primary Care Provider Radha Valiente Unavailable [phone] Allergies Allergen (clinical drug ingredient) Drug/Non Drug [...] Problem Status W/U Status Risk Notes Problem [id number] Endometriosis determined by laparoscopy (N80.9) Active confirmed Problem 464573378 Anxiety with depression (F41.8) Active confirmed Problem [id number] Hypothyroidism (acquired) (E03.9) Active confirmed Plan Of Treatment No Information Insurance Providers Payer Name Payer Address Payer Phone Subscriber Number Group Number Insured Name Patient Relationship to Insured Coverage Start Date Coverage End Date [employer]ARE 2021 JOE (CLIENT bill) [address] [place], [place] [phone] [id number] Martina Au Self - patient is the insured [place] Care Medicaid (Ins. Bill) [address] [address] [place], [place] [id number] Roe , Martina Self - patient is the insured Medical (General) History Medical History History ICD Code Endometriosis Ovarian Cysts Depression / Anxiety Thyroid Problem Surgical History Surgery Date(Month/Year) Cyst; Left Wrist Tonsillectomy / Adenoidectomy Laparscopy 06/2021 [place] Teeth Removed
--- OUTSIDE RECORDS SUMMARY | 2024-08-08 15:45 | XMS_ITS | Encounter Summary ---
Author Organization [facility] [facility] Address [address] [address] Care Team Providers Care Traffic Supervisor Name Role Phone Mar Bundy MD [...] documented as of this encounter Care Teams Traffic Supervisor Relationship Specialty [place] [address] [place] [address] PCP - General 04/14/07 documented as of this encounter
--- OUTSIDE RECORDS SUMMARY | 2024-08-08 15:45 | XMS_ITS | Encounter Summary ---
Author Organization [facility] Address [address], [place] [address] Care Team Providers Care Roll Press Operator Name Role Phone Mar Bundy MD Primary Care Provider [phone]- [phone] Encounter Details Date Type Department Care Team (Latest Contact Info) Description 06/03/1994 Orders Only Nemesio Rodriguez MD [address] [place] [address] Social History Tobacco Use Types Packs/Day Years [...] documented as of this encounter Care Teams Roll Press Operator Relationship Specialty [place] [address] [place] [address] PCP - General 04/14/07 documented as of this encounter
--- OUTSIDE RECORDS SUMMARY | 2024-08-08 15:45 | XMS_ITS | Clinical Summary ---
Author Organization [facility] Address [address] [place] [address] Care Team Providers Care Stress Engineer Name Role Phone OsielXiomara rowell Primary Care Provider [phone] Allergies Active Allergy Reactions Criticality Noted Date [...] mg tablet Take 10 mg by mouth every 4 hours if needed for Pain. 11/06/19 22 Active buprenorphine HCL (SUBUTEX) 8 mg tablet [...] if needed for Nausea/Vomiting. 08/31/19 24 Active norethin morgan-eth estrad-fe, 1-20 mg-mcg, (LOESTRIN FE 04/11; JUNEL FE 04/11) tabletIndications: Chronic pelvic pain in female Take 1 Tablet by mouth once daily. 84 Tablet 1 05/02/19 25 Active levothyroxine (SYNTHROID) 25 mcg tabletIndications: Subclinical hypothyroidism Take 1 Tablet (25 mcg) by mouth before breakfast. 30 Tablet 05/02/19 25 Active DULoxetine (CYMBALTA) 20 mg Delayed-release capsuleIndications :Chronic pelvic pain in female,Depression with anxiety,Moderate episode of recurrent major depressive disorder (HC) Take 1 Capsule (20 mg) by mouth once daily. 90 Capsule 1 05/02/19 25 Active escitalopram oxalate (LEXAPRO) 10 mg tabletIndications: Depression with anxiety Take 1 Tablet (10 mg) by mouth once daily in the morning. 90 Tablet 05/06/19 25 Active Active Problems Problem Noted Date Diagnosed Date Pap smear for cervical cancer screening 09/13/19 23 Overview (09/12/2022): 07/2022 NIL/HPV Negative Plan: Pap and HPV due 07/2027 Endometriosis determined by laparoscopy 11/29/19 Chronic pelvic pain in female 11/28/2021 Dyspareunia due to medical condition in female 0 11/28/2021 Irritable bowel syndrome 03/03/2014 Resolved Problems Problem Noted Date Diagnosed Date Resolved Date Opioid dependence with current use 07/29/2021 04/18/2024 Acute upper respiratory infe ctions of unspecified site 03/04/2007 05/27/2023 Dehydration 03/04/2007 05/27/2023 Encounters Date Type Department Care Team Description 08/08/2024 Refill [facility] [address] [place] [address] Xiomara Cartagena, Refill Request from Last 3 Months Immunizations Immunization Administration Dates Next Due DTP [...] Answer Date Recorded PHQ-2 TOTAL SCORE 2 04/18/2024 Social Connections Answer Date Recorded Do you often feel lonely or isolated from those around you? 4 04/18/2024 Financial Resource Strain Answer Date R ecorded Difficulty of Paying Living Expenses 2 04/18/2024 Difficulty of Paying Living Expenses 1 04/18/2024 Food Insecurity Answer Date Recorded Do you worry your food will run out before you are able to buy more? 1 04/18/2024 Transportation Needs Answer Date Record ed Does lack of transportation keep you from medica l appointments? 1 04/18/2024 Does lack of transportation keep you from work, meetings or getting things that you need? 1 04/18/2024 Housing Stability Answer Date Recorded What is your housing situation today? 1 04/18/2024 Utilities Answer Date Recorded Do you have trouble paying f or utilities (for example, heat, electricity, water, phone)? 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 Gender Identity Not on file Sexual Orientation [...] Sign Reading Time Taken Comments Blood Pressure 117/83 05/02/2024 4:06 PM BILINGUAL LOAN PROCESSOR Pulse 58 05/02/2024 4:06 PM BILINGUAL LOAN PROCESSOR Temperature 37 C (98.6 F) 05/27/2023 10:55 AM BILINGUAL LOAN PROCESSOR Respiratory Rate 18 02/24/2023 5:58 PM BILINGUAL LOAN PROCESSOR Oxygen Saturation 98% 06/19/2023 1:16 PM CDT Inhaled Oxygen Concentration - - Weight 102.3 kg (225 lb 9.6 oz) 12/30/2023 2:54 PM CDT Height 171.8 cm (5' 7.64) 12/30/2023 2:54 PM CD T Body Mass Index 34.67 12/30/2023 2:54 PM CDT Plan of Treatment Upcoming Encounters Date Type Department Care Team (Late st Contact Info) Description 10/31/2024 4:05 PM CDT Office Visit [facility] [address] [place] [address] Xiomara Cartagena, [address] [place] [address] Health Maintenance Due Date Last Done Comments HIV for age 15-65 2005 Hepatitis C screening for age 18-79 2008 COVID-19 vaccine series ( season) 2023 03/05/2021, 05/17/2020, 04/19/2020 Influenza Vaccine (Season Ended) 2024 03/03/2013, 02/23/2003, 02/23/2003 BMI (ht and wt on same day) for age 18+ 12/29/2024 12/30/2023, 06/19/2023, 05/14/2023, Additional history exists Depression screening for age 12+ 04/18/2025 04/18/2024 Pap test for age 21-65 08/05/2027 3, 08/04/2022, 11/17/2018 (Verified in Care Everywhere or Patient Record), Additional history exists Tetanus booster 11/22/2029 11/23/2019, 08/21, 11/10/2002 Tdap Completed 11/23/2019, 09/06/2009 Pneumococcal series for age 6-49 Aged Out No longer eligible based on patient's age to complete this topic Procedures Procedure Name Priority Date/Time Associated Diagnosis Comments HPV HIGH RISK Routine 08/04/2022 9:45 AM CDT Pap smear for cervical cancer screening from Last 3 Months or Most Recently Relevant to Health Maintenance Results * HPV HIGH RISK (08/04/2022 9:45 AM CDT) TYPE 16 Negative Negative 08/08/2022 2:19 PM CDT [facility] TYPE 18 Negative Negative 08/08/2022 2:19 PM CDT [facility] OTHER HIGH RISK TYPES Negative Negative 08/08/2022 2:19 PM CDT [facility] Other (Cervical) Non-Blood / Unknown 08/04/2022 9:45 AM CDT 08/05/2022 4:54 PM CDT Narrative [facility] - 08/08/2022 2:19 PM CDT HPV types 16, 18, 31, 33, 35, 39, 45, 51, 52, 56, 58, 59, 66 and 68 DNA were undetectable or below the pre-set threshold. Methodology: [employer] Ciro 4800 HPV Test us Belgica Gleason MD MICROBIOLOGY Final Result [facility] [address] [place] [address], [place] from Last 3 Months or Most Recently Relevant to Health Maintenance Insurance [facility] Advance Directives * Full Code (Latest Code [...] 4:09 PM 03/04/2007 6:08 PM Care Teams Stress Engineer Relationship Specialty Start Date End Date Xiomara Cartagena DO [address] [facility] [place] [address] PCP - General Family Practice 05/02/24
--- OUTSIDE RECORDS SUMMARY | 2024-08-08 15:45 | XMS_ITS | Encounter Summary ---
Author Organization [facility] Address [address] [facility] [place] [address] Care Team Providers Care Station Tender Name Role Phone Kathryn Valladares MD Primary Care Provider [phone] [facility] Primary Care Provide r No Ref-Primary, Physician Primary Care Provider Encounter Details Date Type Department Care Team (Late st Contact Info) Description 03/03/2014 [facility] Medical Advice [facility] [address] [place] [address] 3rd Floor,[address] 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
--- OUTSIDE RECORDS SUMMARY | 2024-08-08 15:45 | XMS_ITS | Encounter Summary ---
Author Organization [facility] Address [address] [place] [address] Care Team Providers Care Deputy Chief Sheriff Name Role Phone Mar Bundy MD Primary Care Provider Encounter Details Date Type Department Care Team (Latest Contact Info) Description 09/22/1994 Orders Only [facility]ff[facility]Dewey [facility] [address] [place] [address] Social History Tobacco Use Types Packs/Day Years [...] documented as of this encounter Care Teams Deputy Chief Sheriff Relationship Specialty [place] [address] [place] [address] PCP - General 04/14/07 documented as of this encounter
[2024-08-08 15:57] VITALS: BP 126/80; PULSE 85; RESP 16; TEMP 35.6; O2SAT 97; BMI 36.0
--- NOTE | 2024-08-08 16:27 | CRLHL7_ITS ---
For Patients: As a result of the Century Cures Act, medical imaging exams and procedure reports are released immediately into your electronic medical record. You may view this report before your referring provider. If you have questions, please contact your health care provider. Indication: ABD PAIN X 12 HOURS. VOMITING Technique: CT abdomen/pelvis with IV contrast utilizing 112 mL Isovue 370 Comparison: CT abdomen/pelvis on February 16, 2021 Findings: Lower thorax: Unremarkable Abdomen/pelvis: The liver, gallbladder and biliary system, spleen, pancreas, adrenal glands, kidneys, ureters, and bladder are unremarkable. Small hiatal hernia. There is no evidence of bowel obstruction. There are a few loops of nondistended small bowel in the lower abdomen/pelvis with faint perienteric stranding slight prominence of the mesenteric vessels (comb sign). The appendix is normal. Small volume free fluid in the dependent aspect of the pelvis. No free air or abscess. There are few scattered lymph nodes in the right lower quadrant, likely reactive. No pathologically enlarged lymph nodes throughout the abdomen or pelvis. No abdominal aortic aneurysm. Soft tissue/musculoskeletal: Small fat containing umbilical hernia. The bones are unremarkable in appearance. Impression: 1. No evidence of bowel obstruction. 2. There are a few loops of nondistended small bowel in the lower abdomen/pelvis with faint perienteric stranding, concerning for enteritis with small volume free fluid in the pelvis. 3. No free air or abscess. Please note that all CT scans at this facility use dose modulation, iterative reconstruction, and/or weight-based dosing when appropriate to reduce radiation dose to as low as reasonably achievable. Dictated by Flavio Garcia MD @ 08/08/2024 5:36:55 PM (Electronically Signed)
--- NOTE | 2024-08-08 16:30 | ED_ITS ---
HPI - General Adult General Date Seen: 08/08/24 Chief complaint: Abdominal Pain Stated complaint: Vomiting and Abdominal pain Time Seen by Provider: 08/08/24 16:17 History of Present Illness HPI narrative: Patient is a 34-year-old woman with complex past medical history including chronic abdominal pain maintained on buprenorphine and oxycodone through a pain clinic. She had a hysterectomy and bilateral oophorectomy last year for endometriosis, no findings were seen at the time of surgery in terms of endometriosis and biopsies were negative. She has not had improvement in her pain since surgery, she has had ongoing chronic pelvic pain and bladder symptoms , which she acknowledges. She says today's pain is entirely different than what she usually has and is in the upper abdomen associated with vomiting. She says this started at around 6:00 a.m. this morning. It feels like previous episode of food poisoning when she was young. She notes 2 stools today which have been hard, she has chronic constipation and says she often forgets to take her MiraLa x and when she does she gets backed up. She has not had any diarrhea. She has not had fevers. No new urinary symptoms. She had called EMS but says by the time medics got there her abdominal pain was feeling better, as soon as they left it got bad again and her boyfriend brought her in. She says she has not needed her prescribed oxycodone for the past week and so she has not taken any, and then today says she has not been able to keep anything down. Looking through the prescription monitoring program she does seem to feel her oxycodone on a very regular basis. She filled 140 10 mg oxycodone tablets in addition to her Suboxone on May 27, June 22, and July 20. Related Data Home Medications ?Medication ?Instructions ?Recorded ?Confirmed oxycodone 10 mg tablet 10 mg PO Q6H 04/21/22 08/08/24 norethindrone 1.5 mg-ethinyl 1 tab PO DAILY 06/17/23 08/08/24 estradiol 30 mcg(21)/iron 75 mg(7) tablet (Blisovi Fe 1.5/30 (28)) escitalopram oxalate 10 mg tablet 10 mg PO QDAY 11/24/23 08/08/24 (Lexapro) buprenorphine HCl 8 mg sublingual 8 mg sublingual TID 02/01/24 08/08/24 tablet Previous Rx's ?Medication ?Instructions ?Recorded acetaminophen 325 mg tablet 650 mg (2 x 325 mg) PO Q6H 15 days 01/09/24 #100 tabs gabapentin 300 mg capsule 300 mg PO BID 30 days #60 caps 01/09/24 ibuprofen 400 mg tablet 400 mg PO TIDWM 15 days #45 tabs 01/09/24 polyethylene glycol 3350 17 gram 17 g PO DAILY PRN #0 ea 01/09/24 oral powder packet (Miralax) lidocaine 5 % topical ointment 1 applic topical BID PRN pain #30 02/23/24 grams Allergies Allergy/AdvReac Type Severity Reaction Status Date / Time azithromycin Allergy Mild Unknown Verified 08/08/24 17:10 Penicillins Allergy Mild Hives Verified 08/08/24 17:10 erythromycin base Allergy Unknown Unknown Verified 08/08/24 17:10 amitriptyline Allergy Rash Verified 08/08/24 17:10 chlordiazepoxide Allergy Rash Verified 08/08/24 17:10 Review of Systems Status of ROS: Reports: 10 or more systems reviewed and unremarkable except as noted in History and below [facility] Medical History Endometriosis ?N80.9 - Endometriosis, unspecified (ICD-10) Dysmenorrhea ?N94.6 - Dysmenorrhea, unspecified (ICD-10) Pain in pelvis ?R10.2 - Pelvic and perineal pain (ICD-10) Opioid dependence ?F11.20 - Opioid dependence, uncomplicated (ICD-10) IBS (irritable bowel syndrome) ?K58.9 - Irritable bowel syndrome without diarrhea (ICD-10) Trigger point ?M79.10 - Myalgia, unspecified site (ICD-10) Hiatal hernia ?K44.9 - Diaphragmatic hernia without obstruction or gangrene (ICD-10) History of kidney stones ?Z87.442 - Personal history of urinary calculi (ICD-10) History of ovarian cyst ?Z87.42 - Personal history of other diseases of the female genital tract (ICD-10) Surgical History Status post laparoscopic hysterectomy (01/07/24) ?Z90.710 - Acquired absence of both cervix and uterus (ICD-10) History of dental surgery ?Z92.89 - Personal history of other medical treatment (ICD-10) H/O laparoscopy ?Z98.890 - Other specified postprocedural states (ICD-10) History of surgical removal of ganglion cyst ?Z98.890 - Other specified postprocedural states (ICD-10) History of tonsillectomy ?Z90.89 - Acquired absence of other organs (ICD-10) Family History Mother High blood pressure Multiple sclerosis Grandfather Diabetes Aunt Leukemia Other Colon cancer High cholesterol Osteoporosis Ovarian cancer Social History What is your current living situation?: I presently have a place to live Problems where you live: no known problems In the past 12 months, utilities in danger of being shut off: no In past 12 months, lack of transportation kept you from medical appts, meetings, work, or getting things needed for daily living: no In the past 12 mos, have been you worried that your food would run out before you had money to buy more?: never true In the past 12 mos, the food you bought just didn't last and you didn't have money to buy more?: never true Smoking Status: Never smoker Do you use any of these nicotine containing products: None Second hand tobacco smoke exposure: No How often do you have a drink containing alcohol: never AUDIT-C Alcohol total score: 0 Non-prescribed substance use: opiods/painkillers Caffeine: No How often does anyone, including family, friends and others, physically hurt you : never How often does anyone, including family, friends and others, insult or talk down to you: never How often does anyone, including family, friends and others, threaten you with harm: never How often does anyone, including family, friends and others, scream or curse at you: never service: No Exam Narrative: Exam Narrative: Vital signs as noted above. In general, an alert, nontoxic woman. Head: Normocephalic, atraumatic. Eyes: Pupils are equal reactive. Extraocular movements are full. Conjunctivae are normal. ENT: Mucous membranes are moist. Throat is normal. Neck: Supple without lymphadenopathy. Heart: Regular rate and rhythm. No murmur or rub. Lungs: Clear bilaterally. No increased work of breathing, crackles or wheezes. Abdomen: Soft, nondistended. Diffuse lead tender, no rebound guarding or rigidity. Extremities: Well perfused. No edema. No calf tenderness. Pulses intact. Neurologic: Patient is alert and oriented to person and place. Speech is fluent. Face is symmetric. Moves all extremities equally. Affect: Anxious. Skin: Warm and dry. Well perfused. Const: Vital Signs, click to edit/add: Vital Signs - 24 hr 08/08/24 15:57 08/08/24 17:32 08/08/24 18:02 Temperature 96.0 F L Pulse Rate 66 56 L Pulse Rate [Pulse Oximeter] 85 Respiratory Rate 16 18 18 Blood Pressure 109/71 106/65 Blood Pressure [Ri ght Upper Arm] 126/80 Pulse Oximetry 97 98 94 Oxygen Delivery Me thod Room Air Room Air Room Air Course Course ED Course: Complex medical history and significant chronic opioid use, she does have significant surgical use and certainly need to consider bowel obstruction or volvulus, therefore have ordered CT imaging as well as routine labs. In the meantime, I have ordered Toradol and Zofran as well as fluids. She does still have a gallbladder, other considerations would be cholecystitis or biliary colic, pancreatitis, lower suspicion for appendicitis given that she complains of upper abdominal pain, consider perforated viscus, she does not have pelvic organs. Labs are overall reassuring. CRP is minimally elevated at 2.4, white blood cell count is normal. UA is negative, urine drug screen is negative as well. No oxycodone in her urine on today's drug screen. No THC. She had Zofran, Toradol, IV fluids, she is no longer vomiting. I reviewed her CT scan, she has fluid-filled loops of bowel but no dilated bowel, I did not see evidence of bowel obstruction. Radiology read her scan as consistent with enteritis. Discussed this with her, she is feeling improved, is able to tolerate clearly liquids here, I did give her a dose of oxycodone here for ongoing abdominal cramping. Would recommend that she continue her routine medications, I prescribe Zofran as needed for nausea. Clear liquids today, advance as able. Primary care follow-up if not improving over the next few days, return any time for worsening, new symptoms such as fever, vomiting despite treatment or other new concerns. Vital Signs Vital signs: Initial Vital Signs Temperature 96.0 F L 08/08/24 15:57 Temperature Source Temporal Artery Scan 08/08/24 15:57 Pulse Rate 85 08/08/24 15:57 Respiratory Rate 16 08/08/24 15:57 Blood Pressure 126/80 08/08/24 15:57 Blood Pressure Mean 95 08/08/24 15:57 Blood Pressure Position Sitting 08/08/24 15:57 Pulse Oximetry 97 08/08/24 15:57 Oxygen Delivery Method Room Air 08/08/24 15:57 Vital Signs Temperature 96.0 F L 08/08/24 15:57 Pulse Rate 85 08/08/24 15:57 Respiratory Rate 16 08/08/24 15:57 Blood Pressure 126/80 08/08/24 15:57 Pulse Oximetry 97 08/08/24 15:57 Oxygen Delivery Method Room Air 08/08/24 15:57 Temperature 96.0 F L 08/08/24 15:57 Pulse Rate 56 L 08/08/24 18:02 Respiratory Rate 18 08/08/24 18:02 Blood Pressure 106/65 08/08/24 18:02 Pulse Oximetry 94 08/08/24 18:02 Oxygen Delivery Method Room Air 08/08/24 18:02 Medications Administered Medications: Discontinued Medications Generic Name Dose Route Start Last Admin Trade Name Freq PRN Reason Stop Dose Admin Sodium Chloride 1,000 mls @ 1,000 mls/hr 08/08/24 16:30 08/08/24 18:50 0.9 % Sodium Chloride 1000 Ml IV 08/08/24 17:29 Infused .Q1H LEYDI Infusion Ketorolac Tromethamine 15 mg 08/08/24 16:27 08/08/24 17:12 Ketorolac 15 Mg/Ml Inj IVP 08/08/24 16:28 15 mg ONCE ONE Administration Ondansetron HCl 4 mg 08/08/24 16:27 08/08/24 16:54 Ondansetron 2 Mg/Ml Inj IVP 08/08/24 16:28 4 mg ONCE ONE Administration Oxycodone HCl 10 mg 08/08/24 17:38 08/08/24 18:39 Oxycodone 5 Mg Tablet PO 08/08/24 17:39 10 mg ONCE ONE Administration Medical Decision Making Lab Data Lab results reviewed: Yes I reviewed the patient's lab results Labs: Lab Results 08/08/24 08/08/24 Range/Units 16:48 Unknown WBC 9.10 (4.50-11.00) K/uL RBC 4.99 (4.00-5.20) m/uL Hgb 14.3 (12.0-16.0) gm/dL Hct 42.6 (33.0-51.0) % MCV 85 (80-100) fL MCH 29 (26-34) pg MCHC 34 (32-36) gm/dL RDW Coeff of [place] 12.6 (11.5-15.5) % Plt Count 239 (140-440) K/uL Neut % (Auto) 72.0 (42.0-72.0) % Lymph % (Auto) 22.0 (20-44) % Cass % (Auto) 4.7 (0.0-11.0) % Eos % (Auto) 0.2 (0.0-7.0) % Baso % (Auto) 0.2 (0.0-3.0) % Neut # (Auto) 6.55 (1.7-7.0) K/uL Lymph # (Auto) 2.00 (0.90-2.90) K/uL Cass # (Auto) 0.40 (0.00-0.90) K/UL Eos # (Auto) 0.02 (0.00-0.50) K/uL Baso # (Auto) 0.02 (0.00-0.30) K/uL Abs Immat Gran (auto) 0.08 (0.00-0.30) K/uL Imm/Tot Granulo (auto) 0.9 % Sodium 140 (135-149) mmol/L Potassium 4.5 (3.6-5.1) mmol/L Chloride 104 (96-114) mmol/L Carbon Dioxide 27 (20-32) mmol/L Anion Gap 9 (7-15) mEq/L BUN 11 (5-24) mg/dL Creatinine 0.7 (0.5-1.5) mg/dL Estimated Creat Clear 110.12 Estimated GFR 116 ml/min Glucose 116 H (60-115) mg/dL Calcium 10.0 (8.4-10.6) mg/dL Total Bilirubin 0.5 (0.1-1.5) mg/dL Direct Bilirubin 0.3 (0.0-0.5) mg/dL AST 34 (12-35) U/L ALT 30 (4-35) U/L Alkaline Phosphatase 76 (40-150) U/L C-Reactive Protein 2.4 H (0.5-1.0) mg/dL Total Protein 7.8 (6.0-8.3) g/dL Albumin 4.7 (3.3-5.0) g/dL Lipase 58 (23-300) U/L Urine Color Yellow (Yellow) Urine Appearance Clear (Clear) Urine pH 8.5 (5.0-8.5) Ur Specific [place] 1.015 (1.000-1.030) Urine Protein 1+ A (Negative) Urine Glucose (UA) Negative (Negative) Urine Ketones Negative (Negative) Urine Blood Negative (Negative) Urine Nitrite Negative (Negative) Urine Bilirubin Negative (Negative) Urine Urobilinogen 0.2 (0.2-1.0) Ur Leukocyte Esterase Negative (Negative) Urine RBC 0-2 (0-2) Urine WBC 0-2 (0-5) Ur Squamous Epith Cells Few (None-Few) Urine Bacteria None (None) Urine Opiates Screen Negative (Negative) Ur Oxycodone Screen Negative (Negative) Urine Methadone Screen Negative (Negative) Ur Barbiturates Screen Negative (Negative) U Tricyclic Antidepress Negative (Negative) Ur Phencyclidine Scrn Negative (Negative) Ur Amphetamines Screen Negative (Negative) U Methamphetamines Scrn Negative (Negative) U Benzodiazepines Scrn Negative (Negative) Urine Cocaine Screen Negative (Negative) U Marijuana (THC) Screen Negative (Negative) Ur Drug Screen Comment See Note Imaging Data CT scan - abdomen: Attestation: I have reviewed the pertinent imaging results. Radiologist's impression: Patient: Martina Au MR#: [id number] : 1990 Acct:[id number] Loc: ED Service Date: 08/08/[address]: Ordering Physician: Shanti Be M.D. Date of Service: 08/08/24 Procedure(s): CT abdomen pelvis w con Accession Number(s): [id number] cc: Shanti Be M.D.; Xiomara Cartagena, DO~ For Patients: As a result of the Century Cures Act, medical imaging exams and procedure reports are released immediately into your electronic medical record. You may view this report before your referring provider. If you have questions, please contact your health care provider. Indication: ABD PAIN X 12 HOURS. VOMITING Technique: CT abdomen/pelvis with IV contrast utilizing 112 mL Isovue 370 Comparison: CT abdomen/pelvis on February 16, 2021 Findings: Lower thorax: Unremarkable Abdomen/pelvis: The liver, gallbladder and biliary system, spleen, pancreas, adrenal glands, kidneys, ureters, and bladder are unremarkable. Small hiatal hernia. There is no evidence of bowel obstruction. There are a few loops of nondistended small bowel in the lower abdomen/pelvis with faint perienteric stranding slight prominence of the mesenteric vessels (comb sign). The appendix is normal. Small volume free fluid in the dependent aspect of the pelvis. No free air or abscess. There are few scattered lymph nodes in the right lower quadrant, likely reactive. No pathologically enlarged lymph nodes throughout the abdomen or pelvis. No abdominal aortic aneurysm. Soft tissue/musculoskeletal: Small fat containing umbilical hernia. The bones are unremarkable in appearance. Impression: 1. No evidence of bowel obstruction. 2. There are a few loops of nondistended small bowel in the lower abdomen/pelvis with faint perienteric stranding, concerning for enteritis with small volume free fluid in the pelvis. 3. No free air or abscess. Please note that all CT scans at this facility use dose modulation, iterative reconstruction, and/or weight-based dosing when appropriate to reduce radiation dose to as low as reasonably achievable. Dictated by Flavio Garcia MD @ 08/08/2024 5:36:55 PM Discharge Plan Discharge Clinical Impression: Enteritis Patient Disposition: Home, Self-Care Condition: Improved Instructions: Enteritis (ED) Additional Instructions: Continue your current medications. Zofran if needed for nausea/vomiting. Clear liquids today, advance as your symptoms allow. If you are unable to keep liquids down despite medications, if you have new symptoms such as fevers, bloody stools, or other worsening, return to the emergency department. Otherwise, follow-up with primary care if not gradually improving over the next few days. Prescriptions: No Action oxycodone 10 mg tablet 10 mg PO Q6H Patient Comments: 4 times a day buprenorphine HCl 8 mg tablet, sublingual 8 mg sublingual TID lidocaine 5 % ointment 1 applic topical BID PRN (Reason: pain) Qty: 30 0RF norethindrone-e.estradiol-iron [Blisovi Fe 1.5/30 (28)] 1.5 mg-30 mcg (21)/75 mg (7) tablet 1 tab PO DAILY escitalopram oxalate [Lexapro] 10 mg tablet 10 mg PO QDAY acetaminophen 325 mg Tablet 650 mg PO Q6H 15 Days Qty: 100 0RF ibuprofen 400 mg Tablet 400 mg PO TIDWM 15 Days Qty: 45 0RF gabapentin 300 mg Capsule 300 mg PO BID 30 Days Qty: 60 0RF polyethylene glycol 3350 [Miralax] 17 gram Powder In Packet 17 g PO DAILY PRNQty: 0 0RF Follow Up/Referrals: Xiomara Cartagena DO [Primary Care Provider] - Stand Alone Forms: [facility] Info Instructions
--- OUTSIDE RECORDS SUMMARY | 2024-08-08 16:42 | XMS_ITS | Clinical Summary ---
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
--- OUTSIDE RECORDS SUMMARY | 2024-08-08 16:42 | XMS_ITS | Encounter Summary ---
Author Organization [facility] Address [address] [place] [address] Care Team Providers Care Head Operator Name Role Phone Mar Bundy MD Primary Care Provider [phone] Encounter Details Date Type Department Care Team (Latest Contact Info) Description 04/11/1998 Orders Only Jude Allen MD [address] [place], [place] [id number] Social History Tobacco Use Types Packs/Day Years [...] documented as of this encounter Care Teams Head Operator Relationship Specialty [place] [address] [place] [address] PCP - General 04/14/07 documented as of this encounter
--- OUTSIDE RECORDS SUMMARY | 2024-08-08 16:42 | XMS_ITS | Encounter Summary ---
Author Organization [employer] Address [address], [place] [address] Care Team Providers Care Pantograph Watcher Name Role Phone Mar Bundy MD Primary Care Provider [phone]- [phone] Encounter Details Date Type Department Care Team (Latest Contact Info) Description 01/28/1996 Orders Only Nemesio Rodriguez MD [address] [place] [address] Social History Tobacco Use Types Packs/Day Years [...] documented as of this encounter Care Teams Pantograph Watcher Relationship Specialty [place] [address] [place] [address] PCP - General 04/14/07 documented as of this encounter
--- OUTSIDE RECORDS SUMMARY | 2024-08-08 16:42 | XMS_ITS | Encounter Summary ---
Author Organization [facility] Address [address], [place] [address] Care Team Providers Care Patient Relations Coordinator Name Role Phone Mar Bundy MD Primary Care Provider [phone]- [phone] Encounter Details Date Type Department Care Team (Latest Contact Info) Description 06/03/1994 Orders Only Nemesio Rodriguez MD [address] [place] [address] Social History Tobacco Use Types Packs/Day Years [...] as of this encounter Care Teams Patient Relations Coordinator Relationship Specialty [place] [address] [place] [address] PCP - General 04/14/07 documented as of this encounter
--- OUTSIDE RECORDS SUMMARY | 2024-08-08 16:42 | XMS_ITS | Clinical Summary ---
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 Gender Identity Not on file Sexual Orientation [...] Comments Blood Pressure 117/83 05/02/2024 4:06 PM PLATE PAINTER APPRENTICE Pulse 58 05/02/2024 4:06 PM PLATE PAINTER APPRENTICE Temperature 37 C (98.6 F) 05/27/2023 10:55 AM PLATE PAINTER APPRENTICE Respiratory Rate 18 02/24/2023 5:58 PM PLATE PAINTER APPRENTICE Oxygen Saturation 98% 06/19/2023 1:16 PM CDT Inhaled Oxygen Concentration - - Weight 102.3 kg (225 lb 9.6 oz) 12/30/2023 2:54 PM CDT Height 171.8 cm (5' 7.64) 12/30/2023 2:54 PM CD T Body Mass Index 34.67 12/30/2023 2:54 PM CDT Plan of Treatment Upcoming Encounters Date Type Department Care Team (Late st Contact Info) Description 10/31/2024 4:05 PM CDT Office Visit [facility] [address] [place] [address] Xiomara Cartagena, [address] [place] [address] Health Maintenance Due Date Last Done Comments [...] 16 Negative Negative 08/08/2022 2:19 PM CDT [facility] TYPE 18 Negative Negative 08/08/2022 2:19 PM CDT [facility] OTHER HIGH RISK TYPES Negative Negative 08/08/2022 2:19 PM CDT [facility] Other (Cervical) Non-Blood / Unknown 08/04/2022 9:45 AM CDT 08/05/2022 4:54 PM CDT Narrative [facility] - 08/08/2022 2:19 PM CDT HPV types 16, 18, 31, 33, 35, 39, 45, 51, 52, 56, 58, 59, 66 and 68 DNA were undetectable or below the pre-set threshold. Methodology: Vupen Ciro 4800 HPV Test us Belgica Gleason MD MICROBIOLOGY Final Result [facility] [address] [place] [address], [place] from Last 3 Months or Most Recently Relevant to Health Maintenance Insurance [facility] Advance Directives * Full Code (Latest [...] 4:09 PM 03/04/2007 6:08 PM Care Teams Turbine Operator Relationship Specialty Start Date End Date Xiomara Cartagena DO [address] [facility] [place] [address] PCP - General Family Practice 05/02/24
--- OUTSIDE RECORDS SUMMARY | 2024-08-08 16:42 | XMS_ITS | Encounter Summary ---
Author Organization [facility] Address [address] [place] [address] Care Team Providers Care Saddle Lining Stitcher Name Role Phone Mar Bundy MD Primary Care Provider Encounter Details Date Type Department Care Team (Latest Contact Info) Description 09/22/1994 Orders Only [facility] [address] [place] [address] Social History Tobacco Use Types Packs/Day Years [...] documented as of this encounter Care Teams Saddle Lining Stitcher Relationship Specialty [place] [address] [place] [address] PCP - General 04/14/07 documented as of this encounter
--- OUTSIDE RECORDS SUMMARY | 2024-08-08 16:42 | XMS_ITS | Encounter Summary ---
Author Organization [facility] Address [address], [place] [address] Care Team Providers Care Technology Sales Representative Name Role Phone Mar Bundy MD Primary Care Provider [phone] Encounter Details Date Type Department Care Team [...] documented as of this encounter Care Teams Technology Sales Representative Relationship Specialty [place] [address] [place] [address] PCP - General 04/14/07 documented as of this encounter
--- OUTSIDE RECORDS SUMMARY | 2024-08-08 16:42 | XMS_ITS | Encounter Summary ---
Author Organization [place] Address [address] [facility] [place] [address] Care Team Providers Care Solderer Assembler Name Role Phone Kathryn Valladares MD Primary Care Provider [phone] [facility] Primary Care Provide r No Ref-Primary, Physician Primary Care Provider Encounter Details Date Type Department Care Team (Late st Contact Info) Description 03/03/2014 [facility] Medical Advice [facility] [address] [place] [address] 3rd Floor,[address] [facility] [place] [address] Martha Guido, MANAGER CUSTOMER CNM Social History Tobacco Use Types Packs/Day Years Used Date Smoking Tobacco: Never Smokeless Tobacco: Never Alcohol Use Standard Drinks/Week Comments No 0 (1 standard drink = 0.6 oz pur e alcohol) Comments No Sex and Gender Information Value Date Recorded Sex Assigned at Not on file 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 [place] [address] [place] [address] PCP - General 04/29/19 08/31/23 No Ref-Primary, Physician PCP - General 09/01/23 documented as of this encounter
--- OUTSIDE RECORDS SUMMARY | 2024-08-08 16:42 | XMS_ITS | Encounter Summary ---
Author Organization [place] Address [address], [place] [address] Care Team Providers Care Poultry Processor Name Role Phone Mar Bundy MD Primary Care Provider [phone] Encounter Details Date Type Department Care Team (Latest Contact Info) Description 03/18/1995 Orders Only Andrew Goerge MD Social History Tobacco Use Types Packs/Day [...] documented as of this encounter Care Teams Poultry Processor Relationship Specialty [place] [address] [place] [address] PCP - General 04/14/07 documented as of this encounter
--- OUTSIDE RECORDS SUMMARY | 2024-08-08 16:42 | XMS_ITS | Clinical Summary ---
Author Organization [facility] Address [address] [address] Care Team Providers Care Quality Control Lead Name Role Phone Mar Bundy MD Primary Care Provider [phone] Source Comments You are receiving this document [...] for each transition of care or referral. 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
[2024-08-08] MEDS: ONDANSETRON 2 MG/ML inj 4 MG IVP (16:54)
[2024-08-08 17:00] LABS: Basophils Absolute Auto 0.02 K/uL (0.00-0.30); Basophils Percent Auto 0.2 % (0.0-3.0); Eosinophils Absolute Auto 0.02 K/uL (0.00-0.50); Eosinophils Percent Auto 0.2 % (0.0-7.0); Hematocrit 42.6 % (33.0-51.0); Hemoglobin* 14.3 gm/dL (12.0-16.0); Immature Granulocytes Abs Auto 0.08 K/uL (0.00-0.30); Immature Granulocytes Pct Auto 0.9 %; Mean Corpuscular HGB Conc 34 gm/dL (32-36); Mean Corpuscular Hemoglobin 29 pg (26-34); Mean Corpuscular Volume 85 fL (80-100); Monocytes Percent Auto 4.7 % (0.0-11.0); Neutrophils Absolute Auto 6.55 K/uL (1.7-7.0); Platelet Count* 239 K/uL (140-440); RDW Coefficient of Variation % 12.6 % (11.5-15.5); Red Blood Count 4.99 m/uL (4.00-5.20)
[2024-08-08 17:02] LABS: Slide Review Reflex No
[2024-08-08] MEDS: KETOROLAC 15 MG/ML inj IVP (17:12)
[2024-08-08] MEDS: 0.9 % SODIUM CHLORIDE 1000 ml 1,000 ML IV (17:13)
[2024-08-08 17:15] LABS: Appearance Urine Clear (Clear); Bilirubin Urine Negative (Negative); Blood Urine Negative (Negative); Color Urine Yellow (Yellow); Glucose Urine Negative (Negative); Ketones Urine Negative (Negative); Leukocyte Esterase Urine Negative (Negative); Nitrite Urine Negative (Negative); Protein Urine 1+ (Negative); Specific Gravity Urine 1.015 (1.000-1.030); Urobilinogen Urine 0.2 (0.2-1.0); pH Urine 8.5 (5.0-8.5)
[2024-08-08 17:18] LABS: Albumin* 4.7 g/dL (3.3-5.0); Chloride* 104 mmol/L (96-114); Potassium* 4.5 mmol/L (3.6-5.1); Sodium* 140 mmol/L (135-149)
[2024-08-08 17:20] LABS: Blood Urea Nitrogen* 11 mg/dL (5-24); Creatinine* 0.7 mg/dL (0.5-1.5); Est. Creatinine Clearance* 110.12; Estimated Glomerular Filt Rate 116 ml/min
[2024-08-08 17:20] LABS: RBC Urine 0-2 (0-2); Squamous Epithelial Cell Urine Few (None-Few); WBC Urine 0-2 (0-5)
[2024-08-08 17:21] LABS: Alanine Aminotransferase* 30 U/L (4-35); Alkaline Phosphatase* 76 U/L (40-150); Anion Gap 9 mEq/L (7-15); Aspartate Amino Transferase* 34 U/L (12-35); Bilirubin Direct* 0.3 mg/dL (0.0-0.5); Bilirubin Total* 0.5 mg/dL (0.1-1.5); Carbon Dioxide* 27 mmol/L (20-32); Glucose* 116 mg/dL (60-115); Lipase* 58 U/L (23-300); Total Protein* 7.8 g/dL (6.0-8.3)
[2024-08-08 17:24] LABS: C Reactive Protein* 2.4 mg/dL (0.5-1.0)
[2024-08-08 17:27] LABS: Amphetamine Screen Urine Negative (Negative); Barbiturate Screen Urine Negative (Negative); Benzodiazepines Screen Urine Negative (Negative); Cannabinoid Screen Urine Negative (Negative); Cocaine Screen Urine Negative (Negative); Methadone Screen Urine Negative (Negative); Methamphetamines Screen Urine Negative (Negative); Opiate Screen Urine Negative (Negative); Oxycodone Screen Urine Negative (Negative); Phencyclidine Screen Urine Negative (Negative); Tricyclic Antidepressant Urine Negative (Negative)
[2024-08-08 17:32] VITALS: BP 109/71; PULSE 66; RESP 18; O2SAT 98
[2024-08-08 18:02] VITALS: BP 106/65; PULSE 56; RESP 18; O2SAT 94
[2024-08-08] MEDS: OXYCODONE 5 MG TABLET 10 MG PO (18:39)
== END 2024-08-08 18:51 | disposition home or self-care (01) ==
PROVIDERS: Emergency Provider Emergency Medicine; PCP Family Medicine
DX: K52.9 Noninfective gastroenteritis and colitis, unspecified (principal); F11.90 Opioid use, unspecified, uncomplicated
CPT/HCPCS: 36415; 74177; 80048; 80076; 80306; 81001; 83690; 85025; 86140; 96361; 96374; 96375; 99284; 99285; A9270; J1885; J2405; J7030; Q9967

== ENCOUNTER 2024-11-12 09:25 | Outpatient (CLI) | payer MEDICAID, SELFPAY | END 2024-11-12 09:26 | disposition home or self-care (01) | PROVIDERS: PCP Family Medicine; Visit Provider Internal Medicine | DX: R11.2 Nausea with vomiting, unspecified (principal) | CPT/HCPCS: A0998 ==

== ENCOUNTER 2024-12-21 18:31 | Emergency (ER) | payer MEDICAID, SELFPAY ==
--- OUTSIDE RECORDS SUMMARY | 2024-11-01 12:46 | XMS_ITS | Continuity of Care Document ---
Author Organization [facility] Address [address] [address] [place] [address] Phone Care Team Providers Care Regrind Mill Operator Name Role Phone Brendon West MD Unavailable Unavailabl e Allergies, Adverse Reactions, Alerts Substance Reaction Status Criticality erythromycin base Nausea/Vomiting Active No Info rmation PENICILLIN HivesHives Active No Information azithromycin Active No Information erythromycin base Active No Informa tion Penicillins Active No Information Medications Medication Instructions Dosage Effective Dates (start - stop) Status Comments oxycodone 10 mg tablet take 1 tablet by oral route 5 times every day as needed 10 MG - Active buprenorphine HCl [address] 1 tablet by sublingual route 3 times every day allow to dissolve slowly in mouth without chewing or swallowing 8 MG - Active Lexapro 10 mg tablet take 1 tablet by oral route every day 10 MG - Active [place] Fe 1.5/30 (28) 1.5 mg-30 mcg (21)/75 mg (7) tablet take 1 tablet by oral route every day 1.00 tablet - Active Procedures Procedure Date Offic/outpt E&m New Moderate Established Level 3 Ugi Endo; W/bx 1/mx Level Iv-surg Path Gross/micro Established Level 4 New Level 4 Offic/outpt E&m Estab Mod-hi 2 13 Offic/outpt E&m Estab Mod-hi 2 13 Ugi Endo; W/bx 1/mx Level Iv-surg Path Gross/micro 13 Offic/outpt E&m Estab Mod-hi 2 13 Colonoscopy Flex; W/remov Les- 13 Level Iv-surg Path Gross/micro 13 Offic/outpt E&m New Mod-hi Routine Serum Collection [id number] Advance Directives Directive Yes / No Effective Date File Name No Information Encounters Encounter Description Practice Location Reason(s) For Visit Diagnoses Date Provider Providers Copied on Encounter [facility], [address] [address], [place], [id number], [place] tel:[phone] [facility] No Information 5 Bob Olivas. [address] [place] [address], [id number], [place]. tel:[phone] Offic/outpt E&m New Moderate [facility], [address] [address], [place], [id number], [place] tel:[phone] [facility] GI Symptoms or Concerns (chief complaint) Rectal painDysphagia, unspecified typeConstipatio n, unspecified constipation type 5 Jacob Balderrama. [address] [place] [address], [id number], [place]. tel:[phone] Referring Provider: Referral Self, USE FOR SELF REFERRALS. [facility], [address] [address], [place], [id number], [place] tel:[phone] [facility] No Information 5 Bob Olivas. [address] [place] [address], [id number], [place]. tel:[phone] [facility], [address] [address], [place], [id number], [place] tel:[phone] [facility] Gallbladder polyp 3 [facility] PAC Ailyn. [address] [facility], [address], [id number], [place]. tel:[phone] Referring Provider: Referral Self, USE FOR SELF REFERRALS. Established Level 3 [facility], [address] [address], [place], [id number], [place] tel:[phone] [facility] GI Symptoms or Concerns (chief complaint) Chronic GERD 2 Akilah Villalta. [address] [place] [address], [id number], [place]. tel:[phone] Referring Provider: Referral Self, USE FOR SELF REFERRALS. [facility], [address] [address], [place], [id number], [place] tel:[phone] [facility] Gallbladder polyp 2 [facility] PAC Ailyn. [address] [facility], [address], [id number], [place]. tel:[phone] [facility], [address] [address], [place], [id number], [place] tel:[phone] [facility] Hiatal herniaGastro-es ophageal reflux disease with esophagitis, without bleedingDiaphra gmatic hernia without obstruction or gangrene 2 Eloy Hall. [address] [place] [address], [id number], [place]. tel:[phone] Referring Provider: Referral Self, USE FOR SELF REFERRALS. Established Level 4 [facility], [address] [address], [place], [id number], [place] tel:[phone] [facility] GI Symptoms or Concerns (chief complaint) Epigastric pain 2 Akilah Villalta. [address] [place] [address], [id number], [place]. tel:[phone] Referring Provider: Referral Self, USE FOR SELF REFERRALS. New Level 4 [facility], [address] [address], [place], [id number], [place] tel:[phone] [facility] GI Symptoms or Concerns (chief complaint) RUQ painNauseaEsoph ageal spasm Feb- 1 Cy MELVIN Ailyn. [address] [facility], [address], [id number], [place]. tel:[phone] Referring Provider: Referral Self, USE FOR SELF REFERRALS. [facility], [address] [address], [place], [id number], [place] tel:[phone] [facility] No Information 1 Annabelle Chávez. [address] [facility], [facility] [address], [place], [id number], [place]. tel:[phone] Offic/outpt E&m Estab Mod-hi 2 [facility], [address] [address], [place], [id number], [place] tel:[phone] [facility] RUQ Pain 3 Leti Salcedo. [address] [facility], [facility] [address], [place], [place], [id number], [place]. tel:[phone] Offic/outpt E&m Estab Mod-hi 2 [facility], [address] [address], [place], [id number], [place] tel:[phone] [facility] Abdominal pain (chief complaint) Irritable Bowel SyndromePolyp-i ntes/rect/stom- unc Beh 3 Edstrom GLEN Do. [address] [facility], [facility] [address], [place], [id number], [place]. tel:[phone] Referring Provider: Kathryn Kennedy, [address] [place], [address]. tel:[phone] [facility], [address] [address], [place], [id number], [place] tel:[phone] [facility] Gastritis W/o BleedGastric DiverticulumGas tritis W/o BleedGastric Diverticulum 3 Nimco Bush. [address] [place] [address], [id number], [place]. tel:[phone] Referring Provider: Kathryn Kennedy, [address], [place], [address]. tel:[phone] Offic/outpt E&m [facility] Mod-la 2 [facility], [address] [address], [facility] [place], [id number], [place] tel:[phone] [facility] Abdominal pain (chief complaint) RUQ Pain 3 Edstrom GL[place] Do. [address], [id number], [place]. tel:[phone] Referring Provider: Kathryn Kennedy, [address], [place], [address]. tel:[phone] [facility], [address] [address], [place], [place], [id number], [place] tel:[phone] [facility] Polyp-intes/rec t/stom-unc BehAbdominal Pain, UnspecifiedBeni gn Neoplasm ColonAbn X-ray GI TractBenign Neoplasm ColonAbdominal Pain, Unspecified 3 Nimco Bush. [facility], [id number], [place]. tel:[phone] Referring Provider: Kathryn Kennedy, [address], [place], [address]. tel:[phone] Offic/outpt E&m [facility], [address] [address], [facility] [place], [id number], [place] tel:[phone] [facility] Abdominal pain (chief complaint) RLQ PainConstipatio n UnspecifiedAbn X-ray GI Tract 2 Nimco Bush. [address] [facility], [place] [address], [place], [place], [id number], . tel:[phone] Referring Provider: Kathryn Kennedy, [address] [place], [address]. tel:[phone] Family History Family Member Type Diagnosis Age [...] mRNA, spike protein, LNP, preservative free, 100 mcg/0.5mL dose or 50 mcg/0.25mL dose administered Note: [facility] bi -directional interface ; Source: Other Registry SARS-COV-2 (COVID-19) vaccin e, mRNA, spike protein, LNP, preservative free, 100 mcg or 50 mcg dose administered Note: [facility] bi-direct ional interface ; Source: Other Registry SARS-COV-2 (COVID-19) vaccin e, mRNA, spike protein, LNP, preservative free, 100 mcg/0.5mL dose or 50 mcg/0.25mL dose administered Note: [facility] bi -directional interface ; Source: Other Registry SARS-COV-2 (COVID-19) vaccin e, mRNA, spike protein, LNP, preservative free, 100 mcg or 50 mcg dose administered Note: [facility] bi-direct ional interface ; Source: Other Registry tetanus toxoid, reduced diphtheria toxoid, and acellular pertussis vaccine, adsorbed administered Note: [facility] b i-directional interface ; Source: Other Registry Human Rabies vaccine from hu man diploid cell culture administered Note: [facility] bi-direc tional interface ; Source: Other Registry Human Rabies vaccine from man diploid cell culture administered Note: [facility] bi-direc [...] i-directional interface ; Source: Other Registry Influenza, split virus, trivalent, injectable, contains preservative administered Note: [facility] bi-direct ional interface ; Source: Other Registry Influenza, seasonal, [...] Registry Payers Payer name Insurance type Covered alliance party ID Authoriza tion(s) No Information Social History Type Description Quantity Date Captured Comments Sex Female Smoking Status No Information Chief Complaint And Reason For Visit No [...] Prese nt Illness GI Symptoms or Concerns This is a 34-year-old female with a past medical history of gallbladder polyp, endometriosis per the patient undergoing hysterectomy in late 2023 currently on oxycodone 10 mg tablets 5 times a day as well as buprenorphine 3 times a day who presents here for rectal pain.Patient notes that she started having rectal pain since hysterectomy in late 2023. Patient states that she has horrible rectal pain with passing gas or stool. It occurs about 3 times a week not every time. The very sharp intense pain will last about 15 seconds but then there will be a dull ache that can last hours afterwards.Patient is wondering that if the rectal pain that she is having could be secondary to scar tissuePatient has chronic abdominal pain from endometriosis which she is currently sees her pain medicine provider that prescribes her opioid medication for this. She describes that she normally has 1 bowel movement a day from type I to type IV on the [place] stool chart. Significant amount of straining. No blood in the bowel movements. Patient takes 1-2 capfuls of MiraLAX 1-2 times a week.For significant abdominal pain that the patient had August 08 secondary to potentially food poisoning per the patient she went to [facility] where they performed a CT scan. We do not have these records.Patient also describes dysphagia to both solids and liquids as well as some reflux symptoms. Of note she had an upper endoscopy in 2021 with EGD biopsies of the stomach and small bowel that were negative. Esophageal biopsies showed reflux esophagitis changes.From a social standpoint patient denies any smoking or alcohol use. GI Symptoms or Concerns The sukhjinder ent [...] year. She previously has been seen by [facility] back in 2012 with similar symptoms. 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 Anti-reflux measu res sent to patient.2. [...] patient.2. She will proceed with ultrasound in [place] and send us the report.3. If this [...]
--- OUTSIDE RECORDS SUMMARY | 2024-11-01 12:46 | XMS_ITS | Continuity of Care Document ---
Author Organization [facility] Address [address] [address] [place] [address] Phone Care Team Providers Care Shield Operator Name Role Phone Brendon West MD [...] Diagnoses Date Provider Providers Copied on Encounter [facility], [address] [address], [place], [id number], [place] tel:[phone] [facility] No Information 5 Bob Olivas. [address] [place] [address], [id number], [place]. tel:[phone] Offic/outpt E&m New Moderate [facility], [address] [address], [place], [id number], [place] tel:[phone] [facility] GI Symptoms or Concerns (chief complaint) Rectal painDysphagia, unspecified typeConstipatio n, unspecified constipation type 5 Jacob Balderrama. [address] [place] [address], [id number], [place]. tel:[phone] Referring Provider: Referral Self, USE FOR SELF REFERRALS. [facility], [address] [address], [place], [id number], [place] tel:[phone] [facility] No Information 5 Bob Olivas. [address] [place] [address], [id number], [place]. tel:[phone] [facility], [address] [address], [place], [id number], [place] tel:[phone] [facility] Gallbladder polyp 3 [facility] PAC Ailyn. [address] [facility], [address], [id number], [place]. tel:[phone] Referring Provider: Referral Self, USE FOR SELF REFERRALS. Established Level 3 [facility], [address] [address], [place], [id number], [place] tel:[phone] [facility] GI Symptoms or Concerns (chief complaint) Chronic GERD 2 Akilah Villalta. [address] [place] [address], [id number], [place]. tel:[phone] Referring Provider: Referral Self, USE FOR SELF REFERRALS. [facility], [address] [address], [place], [id number], [place] tel:[phone] [facility] Gallbladder polyp 2 [facility] PAC Ailyn. [address] [facility], [address], [id number], [place]. tel:[phone] [facility], [address] [address], [place], [id number], [place] tel:[phone] [facility] Hiatal herniaGastro-es ophageal reflux disease with esophagitis, without bleedingDiaphra gmatic hernia without obstruction or gangrene 2 Eloy Hall. [address] [place] [address], [id number], [place]. tel:[phone] Referring Provider: Referral Self, USE FOR SELF REFERRALS. Established Level 4 [facility], [address] [address], [place], [place], [id number], [place] tel:[phone] [facility] GI Symptoms or Concerns (chief complaint) Epigastric pain 2 Akilah Villalta. [address] [place] [address], [id number], [place]. tel:[phone] Referring Provider: Referral Self, USE FOR SELF REFERRALS. New Level 4 [facility], [address] [address], [place], [id number], [place] tel:[phone] [facility] GI Symptoms or Concerns (chief complaint) RUQ painNauseaEsoph ageal spasm Feb- 1 Cy MELVIN Ailyn. [address] [facility], [address], [id number], [place]. tel:[phone] Referring Provider: Referral Self, USE FOR SELF REFERRALS. [facility], [address] [address], [place], [id number], [place] tel:[phone] [facility] No Information 1 Annabelle Chávez. [address] [facility], [facility] [address], [place], [id number], [place]. tel:[phone] Offic/outpt E&m Estab Mod-hi 2 [facility], [address] [address], [place], [id number], [place] tel:[phone] [facility] RUQ Pain 3 Leti Salcedo. [address] [facility], [facility] [address], [place], [place], [id number], [place]. tel:[phone] Offic/outpt E&m Estab Mod-hi 2 [facility], [address] [address], [place], [id number], [place] tel:[phone] [facility] Abdominal pain (chief complaint) Irritable Bowel SyndromePolyp-i ntes/rect/stom- unc Beh 3 Edstrom GLEN Do. [address] [facility], [facility] [address], [place], [id number], [place]. tel:[phone] Referring Provider: Kathryn Kennedy, [address] [place], [address]. tel:[phone] [facility], [address] [address], [place], [id number], [place] tel:[phone] [facility] Gastritis W/o BleedGastric DiverticulumGas tritis W/o BleedGastric Diverticulum 3 Nimco Bush. [address] [place] [address], [id number], [place]. tel:[phone] Referring Provider: Kathryn Kennedy, [address], [place], [address]. tel:[phone] Offic/outpt E&m [facility] Mod-pr 2 [facility], [address] [address], [facility] [place], [place], [id number], [place] tel:[phone] [facility] Abdominal pain (chief complaint) RUQ Pain 3 Edstrom GLEN Do. [address], [id number], [place]. tel:[phone] Referring Provider: Kathryn Kennedy, [address], [place], [address]. tel:[phone] [facility], [address] [address], [place], [place], [id number], [place] tel:[phone] [facility] Polyp-intes/rec t/stom-unc BehAbdominal Pain, UnspecifiedBeni gn Neoplasm ColonAbn X-ray GI TractBenign Neoplasm ColonAbdominal Pain, Unspecified 3 Nimco Bush. [facility] [address], [id number], [place]. tel:[phone] Referring Provider: Kathryn Kennedy, [address], [place], [address]. tel:[phone] Offic/outpt E&m [facility], [address] [address], [facility] [place], [id number], [place] tel:[phone] [facility] Abdominal pain (chief complaint) RLQ PainConstipatio n UnspecifiedAbn X-ray GI Tract 2 Nimco Bush. [address] [facility], [place] [address], [place], [place], [id number], . tel:[phone] Referring Provider: Kathryn Kennedy, [address] [place], [address]. tel:[phone] Family History Family Member Type Diagnosis Age [...] name Insurance type Covered constitution party ID Authoriza tion(s) No Information Social [...] type I to type IV on the [place] stool chart. Significant amount of straining. No blood in the bowel movements. Patient takes 1-2 capfuls of MiraLAX 1-2 times a week.For significant abdominal pain that the patient had August 08 secondary to potentially food poisoning per the patient she went to [facility] where they performed a CT scan. [...] year. She previously has been seen by [facility] back in 2012 with similar symptoms. At [...] abdomen pelvis that I will review from [place] is negative your symptoms are likely due [...] patient.2. She will proceed with ultrasound in [place] and send us the report.3. If this [...]
[2024-12-21 18:33] VITALS: BP 112/74; PULSE 84; RESP 18; TEMP 36.8; O2SAT 98; BMI 36.3
--- OUTSIDE RECORDS SUMMARY | 2024-12-21 18:33 | XMS_ITS | Clinical Summary ---
Author Organization [facility] Address [address] [place] [address] Care Team Providers Care Frozen Foods Manager Name Role Phone OsielXiomara rowell Primary Care Provider +1- [phone] Allergies Active Allergy Reactions Criticality Noted Date [...] if needed for Nausea/Vomiting. 08/31/19 24 Active levothyroxine (SYNTHROID) 25 mcg tabletIndications: Subclinical hypothyroidism Take 1 Tablet (25 mcg) by mouth before breakfast. 30 Tablet 05/02/19 25 Active Additional Information Patient not taking.Reported on 11/02/2024 norethin morgan-eth estrad-fe (1-20 mg-mcg) (LOESTRIN FE 04/11; JUNEL FE 04/11) tabletIndications: Chronic pelvic pain in female Take 1 Tablet by mouth once daily. 84 Tablet 11/03/19 25 Active escitalopram oxalate (LEXAPRO) 10 mg tabletIndications: Depression with anxiety Take 1.5 Tablets (15 mg) by mouth once daily in the morning. 135 Tablet 11/03/19 25 Active Active Problems Problem Noted Date Diagnosed Date Migraine without aura and wi thout status migrainosus, not intractable 11/02/2024 Pap smear for cervical cancer screening 09/13/19 [...] Encounters Date Type Department Care Team Description 11/07/2024 4:00 PM CDT Ancillary Procedure [facility] [address] [place] [address] 11/07/2024 Travel 11/02/2024 3:40 PM CDT Office Visit [facility] [address] [place] [address] Xiomara Cartagena, DO Medication Management ( control; also needing refills/increase for lexapro) 11/02/2024 Travel 09/20/2024 Transcribe Orders [facility] [place] [phone] Lili Quijano PA-C from Last 3 Months Immunizations Immunization Administration [...] Heart Disease Other 3 maternal great grandmother, [place] Alcoholism Paternal Grandfather Diabetes Paternal Grandfather Postmenopausal [...] PHQ-2 Answer Date Recorded PHQ-2 TOTAL SCORE 3 11/02/2024 Social Connections Answer Date Recorded Do you [...] on file Legal Sex Female 6:15 AM TUBE BLOWER Gender Identity Not on file Sexual Orientation [...] Sign Reading Time Taken Comments Blood Pressure 105/73 11/02/2024 3:36 PM CDT Pulse 60 11/02/2024 3:36 PM CDT Temperature 37 C (98.6 F) 05/27/2023 10:55 AM TUBE BLOWER Respiratory Rate 18 02/24/2023 5:58 PM TUBE BLOWER Oxygen Saturation 98% 06/19/2023 1:16 PM CDT Inhaled Oxygen Concentration - - Weight 105.2 kg (232 lb) 11/02/2024 3:36 PM CDT Height 171.8 cm (5' 7.64) 12/30/2023 2:54 PM CD T Body Mass Index 35.65 12/30/2023 2:54 PM CDT Plan of Treatment Upcoming Encounters Date Type Department Care Team (Late st Contact Info) Description 02/02/2025 3:40 PM TUBE BLOWER Office Visit [facility] [address] [place] [address] Xiomara Cartagena, [address] [place] [address] Health Maintenance Due Date Last Done Comments HIV for age 15-65 2005 Hepatitis C screening for age 18-79 2008 HPV series for age 9-45 (2 - 3-dose series) 03/31/2013 03/03/2013 COVID-19 vaccine series ( season) 2024 03/05/2021, 05/17/2020, 04/19/2020 Influenza Vaccine (#1) 2024 3, 02/23/2003, 02/23/2003 BMI (ht and wt on same day) for age 18+ 12/29/2024 12/30/2023, 06/19/2023, 05/14/2023, Additional history exists Depression screening for age 12+ 11/02/2025 11/02/2024, 04/18/2024, 08/04/2022, Additional history exists Pap test for age 21-65 08/05/2027 , 08/04/2022, 11/17/2018 (Verified in Care Everywhere or Patient Record), Additional history exists Tetanus booster 11/22/2029 11/23/2019, 08/21, 11/10/2002 RSV vaccine for adults or (1 - 1-dose 75+ series) 2065 Hepatitis B series for 19+ Completed 01/22, 01/01/1993, 11/19/1992 Pneumococcal series for age 6-49 Aged Out No longer eligible based on patient's age to complete this topic Procedures Procedure Name Priority Date/Time Associated Diagnosis Comments CT HEAD BRAIN WO Routine 11/07/2024 4:12 PM CDT Dizziness Vision changes Migraine without aura and without status migrainosus, not intractable Hx of hydrocephalus T4,FREE Routine 11/02/2024 5:11 PM CDT TSH WITH REFLEX Routine 11/02/2024 5:11 PM CDT Subclinical hypothyroidism HPV HIGH RISK Routine 08/04/2022 9:45 AM CDT Pap smear for cervical cancer screening from Last 3 Months or Most Recently Relevant to Health Maintenance Results * CT HEAD BRAIN WO (11/07/2024 4:12 PM CDT) Anatomical Region Laterality Modality HEAD, BRAIN Computed Tomogra phy 11/07/2024 4:17 PM CDT Impressions 11/07/2024 4:17 PM CDT IMPRESSION:1. No CT evidence of acute cortical infarct. No acute intracranial hemorrhage. No other acute intracranial findings. Please note that all CT scans at this facility use dose modulation, iterative reconstruction, and/or weight-based dosing when appropriate to reduce radiation dose to as low as reasonably achievable. Dictated by Marcial Turner MD @ 11/07/2024 4:17:37 PM (Electronically Signed) Narrative 11/07/2024 4:17 PM CDT For Patients: As a result of the Cures Act, medical imaging exams and procedure reports are released immediately into your electronic medical record. You may view this report before your referring provider. If you have questions, please contact your health care provider. INDICATION: Dizziness. Vision changes. TECHNIQUE: CT of the head without contrast. Coronal and sagittal reformats are included. COMPARISON: None. FINDINGS: No CT evidence of acute cortical infarct. No loss of davis white matter differentiation. No hyperdense vessels to suggest intracranial thrombus. No acute intracranial hemorrhage. No mass effect or midline shift. No hydrocephalus or extra-axial collections. White matter is within normal limits for age. No acute osseous abnormalities. Mastoid air cells and paranasal sinuses are clear. Normal soft tissues. Procedure Note Marcial Turner MD - 11/07/2024 For Patients: As a result of the Cures Act, medical imagingexams and procedure reports are released immediately into your electronicmedical record. You may view this report before your referring provider.If you have questions, please contact your health care provider. INDICATION: Dizziness. Vision changes. TECHNIQUE: CT of the head without contrast. Coronal and sagittal reformats areincluded. COMPARISON: None. FINDINGS: No CT evidence of acute cortical infarct. No loss of davis white matterdifferentiation. No hyperdense vessels to suggest intracranial thrombus.No acute intracranial hemorrhage. No mass effect or midline shift. Nohydrocephalus or extra-axial collections. White matter is within normallimits for age. No acute osseous abnormalities. Mastoid air cells and paranasal sinusesare clear. Normal soft tissues. IMPRESSION: IMPRESSION:1. No CT evidence of acute cortical infarct. No acuteintracranial hemorrhage. No other acute intracranial findings. Please note that all CT scans at this facility use dose modulation,iterative reconstruction, and/or weight-based dosing when appropriate toreduce radiation dose to as low as reasonably achievable. Dictated by Marcial Turner MD @ 11/07/2024 4:17:37 PM (Electronically Signed) Xiomara Cartagena DO CT Final Resu lt * (ABNORMAL) TSH WITH REFLEX (11/02/2024 5:11 PM CDT) TSH W/REFLEX TO FT4 6.84(H) mIU/L [facility] Comment: Reference Range > or = 20 Years 0.40-4.50 Ranges First trimester 0.26-2.66 Second trimester 0.55-2.73 Third trimester 0.43-2.91 Blood BLOOD SPECIMEN / Unknown 11/02/2024 5:11 PM CDT 11/02/2024 5:11 PM CDT Xiomara Cartagena DO CHEMISTRY Final Resu lt Performing Organization Address City/[facility]/ZIP Co de Phone Number [facility] [address] [place] [phone], [facility] [address] [place] [phone] * T4,FREE (11/02/2024 5:11 PM CDT) T4, FREE 1.2 0.8 - 1.8 ng/dL [facility] 11/02/2024 5:11 PM CDT 11/02/2024 5:11 PM CDT Xiomara Cartagena DO CHEMISTRY Final Resu lt [facility] [address] [place] [address], [facility] [address] [place] [address] * HPV HIGH RISK (08/04/2022 9:45 AM CDT) TYPE 16 Negative Negative 08/08/2022 2:19 PM CDT [facility] TYPE 18 Negative Negative 08/08/2022 2:19 PM CDT [facility] TR[facility] OTHER HIGH RISK TYPES Negative Negative 08/08/2022 2:19 PM CDT [facility] TRA LABORATORY Other (Cervical) Non-Blood / Unknown 08/04/2022 9:45 AM CDT 08/05/2022 4:54 PM CDT Narrative [facility] - 08/08/2022 2:19 PM CDT HPV types 16, 18, 31, 33, 35, 39, 45, 51, 52, 56, 58, 59, 66 and 68 DNA were undetectable or below the pre-set threshold. Methodology: Dulce Ciro 4800 HPV Test Belgica Gleason MD MICROBIOLOGY Final Result [facility] [address] [place] [address], from Last 3 Months or Most Recently Relevant to Health Maintenance Insurance [facility] Advance Directives * Full Code (Latest Code [...] 4:09 PM 03/04/2007 6:08 PM Care Teams Frozen Foods Manager Relationship Specialty Start Date End Date Xiomara Cartagena [place] [address] PCP - General Family Practice 05/02/24
--- OUTSIDE RECORDS SUMMARY | 2024-12-21 18:33 | XMS_ITS | Encounter Summary ---
Author Organization [facility] Address [address] [place] [address] Care Team Providers Care Machine Operator Replanter Name Role Phone Mar Bundy MD Primary Care Provider Encounter Details Date Type Department Care Team (Latest Contact Info) Description 09/22/1994 Orders Only KelseyjefferyDewey [facility] [address] [place] [address] Social History Tobacco Use Types Packs/Day Years [...] documented as of this encounter Care Teams Machine Operator Replanter Relationship Specialty [place] [address] [place] [address] PCP - General 04/14/07 documented as of this encounter
--- OUTSIDE RECORDS SUMMARY | 2024-12-21 18:33 | XMS_ITS | Encounter Summary ---
Author Organization [facility] Address [address], [place] [address] Care Team Providers Care System Technologist Name Role Phone Mar Bundy MD Primary Care Provider [phone]- [phone] Encounter Details Date Type Department Care Team (Latest Contact Info) Description 01/28/1996 Orders Only Nemesio Rodriguez MD [address] [place] [address] Social History Tobacco Use Types Packs/Day Years [...] documented as of this encounter Care Teams System Technologist Relationship Specialty [place] [address] [place] [address] PCP - General 04/14/07 documented as of this encounter
--- OUTSIDE RECORDS SUMMARY | 2024-12-21 18:33 | XMS_ITS | Encounter Summary ---
Author Organization [facility] Address [address] [facility] [place] [address] Care Team Providers Care Steward/Stewardess Wine Name Role Phone Kathryn Valladares MD Primary Care Provider [phone]- [phone] [facility] Primary Care Provide r No Ref-Primary, Physician Primary Care Provider Encounter Details Date Type Department Care Team (Late st Contact Info) Description 03/03/2014 [facility] Medical Advice [facility] [address] [place] [address] 3rd Floor,[address] [facility] [address] [place] [address] Martha Guido, HEATER PLANER OPERATOR CNM Social History Tobacco Use Types Packs/Day Years Used Date Smoking Tobacco: Never Smokeless Tobacco: Never Alcohol Use Standard Drinks/Week Comments No 0 (1 standard drink = 0.6 oz pur e alcohol) Comments No Sex and Gender Information Value Date Recorded Sex Assigned at Not on file Legal Sex Female 4:22 AM PALEOLOGIST Gender Identity Not on file Sexual Orientation Not on file 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 [place] [address] [place] [address] PCP - General 04/29/19 08/31/23 No Ref-Primary, Physician PCP - General 09/01/23 documented as of this encounter
--- OUTSIDE RECORDS SUMMARY | 2024-12-21 18:33 | XMS_ITS | Encounter Summary ---
Author Organization [facility] Address [address], [place] [address] Care Team Providers Care Order Processor Name Role Phone Mar Bundy MD Primary Care Provider [phone]- [phone] Encounter Details Date Type Department Care Team (Latest Contact Info) Description 06/03/1994 Orders Only Nemesio Rodriguez MD [address] [place] [address] Social History Tobacco Use Types Packs/Day Years [...] documented as of this encounter Care Teams Order Processor Relationship Specialty [place] [address] [place] [address] PCP - General 04/14/07 documented as of this encounter
--- OUTSIDE RECORDS SUMMARY | 2024-12-21 18:33 | XMS_ITS | Clinical Summary ---
Author Organization [facility] Address [address] [place] [address] Care Team Providers Care Gas Mask Inspector Name Role Phone No Ref-Primary, Physician Primary [...] 03/01/2014 Overview (12/22/2014): 2016: Screen pap due. 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 Not on file Not [...] SCREENING 2005 HEPATITIS C SCREENING 2008 HPV VACCINE (2 - 3-dose series) 03/31/2013 03/03/2013 YEARLY PREVENTIVE VISIT 06/13/2016 06/14/19 16, 03/03/2014, 01/12/2004, Additional history exists PHQ-2 (once per calendar year) 2024 COVID-19 VACCINE ( season) 2024 INFLUENZA VACCINE (#1) 2024 03/03/2013, 2002 PAP 08/04/2025 08/04/2022 DTAP/TDAP/TD VACCINE (8 - Td or Tdap) 11/22/2029 11/23/2019, 09/06/2009, 11/10/2002, Additional history exists ZOSTER VACCINE (1 of 2) 2040 HEPATITIS B VACCINE Completed 01/22/1994, 01/01/1993, 11/19/1992 MENINGITIS VACCINE Aged Out No longer eligible based on patient's age to complete this topic PNEUMOCOCCAL VACCINE: PEDIATRICS (0 to 5 YEARS) AND AT-RISK PATIENTS (6 to 49 YEARS) Aged Out No longer eligible based on patient's age to complete this topic Insurance [facility] [employer] Care Teams Gas Mask Inspector Relationship Specialty Start Date End Date No Ref-Primary, Physician PCP - General 09/01/23
--- OUTSIDE RECORDS SUMMARY | 2024-12-21 18:33 | XMS_ITS | Clinical Summary ---
Author Organization [facility] Address [address], [place] [address] Care Team Providers Care Concrete Pump Operator Helper Name Role Phone Mar Bundy MD Primary Care Provider [phone] Source Comments You are receiving this document [...] for each transition of care or referral. [facility] Allergies Active Allergy Reactions Criticality Noted Date Comments Erythromycin 09/14/2002 Penicillins 03/26/2001 Medications ALBUTEROL (PROVENTIL, VENTOLIN) 90MCG/ACT INHALERIndicati ons:Unspecified asthma(493.90) [...] CDT Respiratory Rate 18 06/10/2004 4:37 PM DENTIST [facility] Oxygen Saturation 99% 10/27/2004 2:04 PM CDT [...] Additional history exists COVID-19 Vaccine ( season) 2024 05/17/2020, 04/19/2020 Influenza Vaccine (#1) 2024 03/03/2013, 2002 Zoster/Shingles Vaccine (1 of 2) 2040 Hib [...] patient's age to complete this topic Insurance [facility] Advance Directives * No Code Status (Latest Code Status on File) Date Activated Date Inactivated Comments 01/12/2004 1:26 PM 01/12/2004 1:26 PM Care Teams Concrete Pump Operator Helper Relationship Specialty [place] [address] [place] [address] PCP - General 04/14/07
--- OUTSIDE RECORDS SUMMARY | 2024-12-21 18:33 | XMS_ITS | Encounter Summary ---
Author Organization [facility] Address [address] [place] [address] Care Team Providers Care Crystalizer Operator Name Role Phone Mar Bundy MD Primary Care Provider [phone]- [phone] Encounter Details Date Type Department Care Team (Latest Contact Info) Description 04/11/1998 Orders Only Jude Allen MD [address] [place], [place] [id number] Social History Tobacco Use Types Packs/Day Years [...] documented as of this encounter Care Teams Crystalizer Operator Relationship Specialty [place] [address] [place] [address] PCP - General 04/14/07 documented as of this encounter
--- OUTSIDE RECORDS SUMMARY | 2024-12-21 18:33 | XMS_ITS | Encounter Summary ---
Author Organization [facility] Address [address] [address] Care Team Providers Care Developmental Specialist Name Role Phone Mar Bundy MD [...] documented as of this encounter Care Teams Developmental Specialist Relationship Specialty [place] [address] [place] [address] PCP - General 04/14/07 documented as of this encounter
--- OUTSIDE RECORDS SUMMARY | 2024-12-21 18:33 | XMS_ITS | Encounter Summary ---
Author Organization [facility] Address [address] [address] Care Team Providers Care Stone Derrickman And Rigger Name Role Phone Mar Bundy MD Primary [...] documented as of this encounter Care Teams Stone Derrickman And Rigger Relationship Specialty [place] [address] [place] [address] PCP - General 04/14/07 documented as of this encounter
--- NOTE | 2024-12-21 18:47 | ED.GENADULT ---
HPI - General Adult General Chief complaint: Nausea/Vomiting Stated complaint: Food poisoning feels very bad Time Seen by Provider: 12/21/24 18:46 History of Present Illness HPI narrative: patient had ordered some lunch and eaten and shortly after that started with severe diarrhea and vomiting. having flu like sx went to take a shower around 1720. had an event where hands went numb and then became itchy. having some severe abdominal pain lower abdomen 2 days ago but thought was endometriosis flaring up. 34-year-old woman presenting to the emergency department after episode of vomiting and diarrhea and pain. Underlying history of chronic abdominal pain secondary to endometriosis and chronic back pain. Status post hysterectomy for endometriosis. Takes buprenorphine. Has had some increased lower abdominal discomfort over the last couple of days. Ordered some chicken and rice soup. Went to take a shower and suddenly hit with cramping in her abdomen. Went to have a bowel movement but thought something was block. Subsequently ended up having rather large vomitus and than voluminous diarrheal stool. No fever but had then developed some shaking chills when she went to lie down after finishing her shower. Feeling of dizzy. Does struggle with history of vertigo. Does note herself to be hypothyroid with rather high TSH. This might be contributing to chronic fatigue and needs for lots of rest apparently says. Called and talked to her mom this evening who apparently has a good deal of medical knowledge is noted and was advised to present to the emergency department. Related Data Home Medications ?Medication ?Instructions ?Recorded ?Confirmed oxycodone 10 mg tablet 10 mg PO Q6H 04/21/22 12/21/24 norethindrone 1.5 mg-ethinyl 1 tab PO DAILY 06/17/23 12/21/24 estradiol 30 mcg(21)/iron 75 mg(7) tablet (Blisovi Fe 1.5/30 (28)) escitalopram oxalate 10 mg tablet 10 mg PO QDAY 11/24/23 12/21/24 (Lexapro) buprenorphine HCl 8 mg sublingual 8 mg sublingual QID 02/01/24 12/21/24 tablet ibuprofen 400 mg tablet 400 mg PO TIDWM PRN 12/21/24 12/21/24 Previous Rx's ?Medication ?Instructions ?Recorded acetaminophen 325 mg tablet 650 mg (2 x 325 mg) PO Q6H 15 days 01/09/24 #100 tabs polyethylene glycol 3350 17 gram 17 g PO DAILY PRN #0 ea 01/09/24 oral powder packet (Miralax) metronidazole 0.75 % (37.5 mg/5 1 appful vaginal DAILY 5 days #70 12/21/24 gram) vaginal gel grams Allergies Allergy/AdvReac Type Severity Reaction Status Date / Time azithromycin Allergy Mild Unknown Verified 12/21/24 18:45 Penicillins Allergy Mild Hives Verified 12/21/24 18:45 erythromycin base Allergy Unknown Unknown Verified 12/21/24 18:45 amitriptyline Allergy Rash Verified 12/21/24 18:45 chlordiazepoxide Allergy Rash Verified 12/21/24 18:45 Review of Systems Status of ROS: Reports: 6 or more systems reviewed and unremarkable except as noted in History and below [facility] Medical History Endometriosis ?N80.9 - Endometriosis, unspecified (ICD-10) Dysmenorrhea ?N94.6 - Dysmenorrhea, unspecified (ICD-10) Pain in pelvis ?R10.2 - Pelvic and perineal pain (ICD-10) Opioid dependence ?F11.20 - Opioid dependence, uncomplicated (ICD-10) IBS (irritable bowel syndrome) ?K58.9 - Irritable bowel syndrome without diarrhea (ICD-10) Trigger point ?M79.10 - Myalgia, unspecified site (ICD-10) Hiatal hernia ?K44.9 - Diaphragmatic hernia without obstruction or gangrene (ICD-10) History of kidney stones ?Z87.442 - Personal history of urinary calculi (ICD-10) History of ovarian cyst ?Z87.42 - Personal history of other diseases of the female genital tract (ICD-10) Surgical History Status post laparoscopic hysterectomy (01/07/24) ?Z90.710 - Acquired absence of both cervix and uterus (ICD-10) History of dental surgery ?Z92.89 - Personal history of other medical treatment (ICD-10) H/O laparoscopy ?Z98.890 - Other specified postprocedural states (ICD-10) History of surgical removal of ganglion cyst ?Z98.890 - Other specified postprocedural states (ICD-10) History of tonsillectomy ?Z90.89 - Acquired absence of other organs (ICD-10) Family History Mother High blood pressure Multiple sclerosis Grandfather Diabetes Aunt Leukemia Other Colon cancer High cholesterol Osteoporosis Ovarian cancer Social History What is your current living situation?: I presently have a place to live Problems where you live: no known problems In the past 12 months, utilities in danger of being shut off: no In past 12 months, lack of transportation kept you from medical appts, meetings, work, or getting things needed for daily living: no In the past 12 mos, have been you worried that your food would run out before you had money to buy more?: never true In the past 12 mos, the food you bought just didn't last and you didn't have money to buy more?: never true Smoking Status: Never smoker Do you use any of these nicotine containing products: None Second hand tobacco smoke exposure: No How often do you have a drink containing alcohol: never AUDIT-C Alcohol total score: 0 Non-prescribed substance use: opiods/painkillers Caffeine: No How often does anyone, including family, friends and others, physically hurt you: never How often does anyone, including family, friends and others, insult or talk down to you: never How often does anyone, including family, friends and others, threaten you with harm: never How often does anyone, including family, friends and others, scream or curse at you: never service: No Exam Narrative: Exam Narrative: Pleasant. Hesitant. Little tremulous. Speaks slowly, methodically. Lungs appear clear. Heart regular rate. Diffusely mild to moderately tender abdomen. Soft. No peritoneal signs. Diminished bowel sounds. Extremities well perfused without edema. Const: Vital Signs, click to edit/add: Vital Signs - 24 hr 12/21/24 18:33 Temperature 98.2 F Pulse Rate [Pulse Oximeter] 84 Respiratory Rate 18 Blood Pressure [Ri ght Upper Arm] 112/74 Pulse Oximetry 98 Oxygen Delivery Me thod Room Air Documenting provider has reviewed patient's vital signs: yes Course Vital Signs Vital signs: Initial Vital Signs Temperature 98.2 F 10/01/25 18:33 Temperature Source Temporal Artery Scan 12/21/24 18:33 Pulse Rate 84 12/21/24 18:33 Respiratory Rate 18 12/21/24 18:33 Blood Pressure 112/74 12/21/24 18:33 Blood Pressure Mean 86 12/21/24 18:33 Blood Pressure Position Sitting 12/21/24 18:33 Pulse Oximetry 98 12/21/24 18:33 Oxygen Delivery Method Room Air 12/21/24 18:33 Vital Signs Temperature 98.2 F 12/21/24 18:33 Pulse Rate 84 12/21/24 18:33 Respiratory Rate 18 12/21/24 18:33 Blood Pressure 112/74 12/21/24 18:33 Pulse Oximetry 98 12/21/24 18:33 Oxygen Delivery Method Room Air 12/21/24 18:33 Temperature 97.3 F L 12/21/24 21:22 Pulse Rate 65 12/21/24 21:22 Respiratory Rate 18 12/21/24 21:22 Blood Pressure 108/69 12/21/24 21:22 Pulse Oximetry 95 12/21/24 21:22 Oxygen Delivery Method Room Air 12/21/24 21:22 Medications Administered Medications: Discontinued Medications Generic Name Dose Route Start Last Admin Trade Name Freq PRN Reason Stop Dose Admin Diazepam 5 mg 12/21/24 19:09 12/21/24 19:48 Diazepam 5 Mg/Ml Inj IV 12/21/24 19:10 5 mg ONCE ONE Administration Sodium Chloride 1,000 mls @ 1,000 mls/hr 12/21/24 19:09 12/21/24 21:18 0.9 % Sodium Chloride 1000 Ml IV 12/21/24 20:08 Infused .Q1H ONE Infusion Metoclopramide HCl 10 mg/ 102 mls @ 306 mls/hr 12/21/24 19:09 12/21/24 20:23 Sodium Chloride IVPB 12/21/24 19:10 Infused ONCE ONE Infusion Ketorolac Tromethamine 30 mg 12/21/24 19:09 12/21/24 19:49 Ketorolac 30 Mg/Ml Inj IVP 12/21/24 19:10 30 mg ONCE ONE Administration Medical Decision Making MDM Narrative Medical decision making narrative: I think need to focus on symptom relief here. I think is having some residual abdominal cramping after this bowel movement. I do not think that this represents food poisoning; timing is inconsistent. Enteritis otherwise? Amplifying underlying chronic pain? Check however for red flags in standard laboratory evaluation. Monitor for improvement as warranting further investigation Martina does have Zofran available. IV is initiated. Given a L normal saline, diazepam IV I think might be most helpful for this cramping, metoclopramide piggyback and ketorolac. White count is mildly elevated. CRP is mildly elevated. Unsure if this is margination, stress response. I do not think this represents more significant disease however at this time. Was seen in this emergency department for enteritis about 10 days ago. On reassessment is improved and requesting to go; feels she can manage at home.. She has had chronic pelvic pain. Urinalysis does suggest some possible infection I think possibly vaginal more so than urinary tract. I did ask her to collect wet prep. Clue cells were present. While her pelvic pain is likely multifactorial, certainly this could be contributing. Sounds like she has had some degree discharge for some time. Offered treatment metronidazole but apparently has not tolerated oral very well before so anticipating vaginal treatment. See patient discharge plan for further discussion I am happy you are feeling better. Would consider slower advance of diet over the next 24-36 hours. Diluted juices, soup broth, crackers, rice, toast. We did find some clue cells in that wet prep. That can indicate bacterial vaginosis. I do not know that that was the cause of all of your symptoms; the reason for your presentation here today but it does sound as though this is a chronic issue that might need to be evaluated further in clinic. Sending in a prescription of Metrogel as discussed. Medical Records Medical records reviewed: Yes I reviewed the patient's medical records Lab Data Lab results reviewed: Yes I reviewed the patient's lab results Labs: Lab Results 12/21/24 12/21/24 12/21/24 Range/Units 19:19 19:42 20:15 WBC 12.65 H (4.50-11.00) K/uL RBC 4.75 (4.00-5.20) m/uL Hgb 13.7 (12.0-16.0) gm/dL Hct 40.5 (33.0-51.0) % MCV 85 (80-100) fL MCH 29 (26-34) pg MCHC 34 (32-36) gm/dL RDW Coeff of [place] 13.0 (11.5-15.5) % Plt Count 228 (140-440) K/uL Neut % (Auto) 74.0 H (42.0-72.0) % Lymph % (Auto) 18.8 L (20-44) % [place] % (Auto) 6.6 (0.0-11.0) % Eos % (Auto) 0.2 (0.0-7.0) % Baso % (Auto) 0.2 (0.0-3.0) % Neut # (Auto) 9.40 H (1.7-7.0) K/uL Lymph # (Auto) 2.40 (0.90-2.90) K/uL [place] # (Auto) 0.80 (0.00-0.90) K/UL Eos # (Auto) 0.00 (0.00-0.50) K/uL Baso # (Auto) 0.00 (0.00-0.30) K/uL Abs Immat Gran (auto) 0.00 (0.00-0.30) K/uL Imm/Tot Granulo (auto) 0.2 % Sodium 134 L (135-149) mmol/L Potassium 4.2 (3.6-5.1) mmol/L Chloride 99 (96-114) mmol/L Carbon Dioxide 25 (20-32) mmol/L Anion Gap 10 (7-15) mEq/L BUN 11 (5-24) mg/dL Creatinine 0.8 (0.5-1.5) mg/dL Estimated Creat Clear 96.36 Estimated GFR 99 ml/min Glucose 97 (60-115) mg/dL Calcium 9.5 (8.4-10.6) mg/dL C-Reactive Protein 1.5 H (0.5-1.0) mg/dL Urine Color Dark yellow (Yellow) Urine Appearance Cloudy A (Clear) Urine pH 5.5 (5.0-8.5) Ur Specific Wallace >= 1.030 (1.000-1.030) Urine Protein 1+ A (Negative) Urine Glucose (UA) Negative (Negative) Urine Ketones Trace A (Negative) Urine Blood Negative (Negative) Urine Nitrite Negative (Negative) Urine Bilirubin 1+ A (Negative) Urine Urobilinogen 0.2 (0.2-1.0) Ur Leukocyte Esterase Negative (Negative) Urine RBC 0-2 (0-2) Urine WBC 5-10 A (0-5) Ur Squamous Epith Cells Moderate A (None-Few) Urine Bacteria Moderate A (None) Urine Mucus Moderate A (None) Vaginal Trichomonas No Trichomonas Seen (None Seen) Vaginal Yeast No Yeast Seen (None Seen) Vaginal Clue Cells <20% Clue Cells Seen A (None Seen) SARS-CoV-2 (PCR) Negative SARS-CoV-2 (Negative) Influenza Type A (PCR) Negative PCR FLU A (Negative) Influenza Type B (PCR) Negative PCR FLU B (Negative) Discharge Plan Discharge Clinical Impression: Vomiting, Abdominal cramping, Bacterial vaginosis Patient Disposition: Home w/ Parent or Adult Condition: Improved Additional Instructions: I am happy you are feeling better. Would consider slower advance of diet over the next 24-36 hours. Diluted juices, soup broth, crackers, rice, toast. We did find some clue cells in that wet prep. That can indicate bacterial vaginosis. I do not know that that was the cause of all of your symptoms; the reason for your presentation here today but it does sound as though this is a chronic issue that might need to be evaluated further in clinic. Sending in a prescription of Metrogel as discussed. Prescriptions: New metronidazole 0.75 % (37.5mg/5 gram) gel 1 appful vaginal DAILY 5 Days Qty: 70 0RF No Action oxycodone 10 mg tablet 10 mg PO Q6H Patient Comments: 4 times a day buprenorphine HCl 8 mg tablet, sublingual 8 mg sublingual QID norethindrone-e.estradiol-iron [Blisovi Fe 1.5/30 (28)] 1.5 mg-30 mcg (21)/75 mg (7) tablet 1 tab PO DAILY escitalopram oxalate [Lexapro] 10 mg tablet 10 mg PO QDAY ibuprofen 400 mg Tablet 400 mg PO TIDWM PRN acetaminophen 325 mg Tablet 650 mg PO Q6H 15 Days Qty: 100 0RF polyethylene glycol 3350 [Miralax] 17 gram Powder In Packet 17 g PO DAILY PRNQty: 0 0RF Follow Up/Referrals: Xiomara Cartagena DO [Primary Care Provider, Family Practice] Stand Alone Forms: MyHealth Info Instructions
[2024-12-21 19:29] LABS: Appearance Urine Cloudy (Clear)
[2024-12-21] MEDS: diazePAM 5 MG/ML inj IV (19:48)
[2024-12-21] MEDS: METOCLOPRAMIDE HCL 10 MG in 0.9 % SODIUM CHLORIDE 100 ml 100 ML 306 MG IVPB (19:56)
[2024-12-21 20:19] LABS: Hematocrit* 40.5 % (33.0-51.0); Hemoglobin* 13.7 gm/dL (12.0-16.0); Immature Granulocytes Pct Auto 0.2 %; Mean Corpuscular HGB Conc 34 gm/dL (32-36); Mean Corpuscular Hemoglobin 29 pg (26-34); Mean Corpuscular Volume 85 fL (80-100); RDW Coefficient of Variation % 13.0 % (11.5-15.5); Red Blood Count* 4.75 m/uL (4.00-5.20); White Blood Count* 12.65 K/uL (4.50-11.00)
[2024-12-21 20:35] LABS: Trichomonas No Trichomonas Seen (None Seen)
[2024-12-21 20:36] LABS: Immature Granulocytes Abs Auto 0.00 K/uL (0.00-0.30); Lymphocytes Absolute Auto 2.40 K/uL (0.90-2.90); Slide Review Reflex No
[2024-12-21 20:41] LABS: Chloride* 99 mmol/L (96-114)
[2024-12-21 20:42] LABS: Potassium* 4.2 mmol/L (3.6-5.1); Sodium* 134 mmol/L (135-149)
[2024-12-21 20:45] LABS: Anion Gap 10 mEq/L (7-15); Blood Urea Nitrogen* 11 mg/dL (5-24); Calcium* 9.5 mg/dL (8.4-10.6); Carbon Dioxide* 25 mmol/L (20-32); Creatinine* 0.8 mg/dL (0.5-1.5); Est. Creatinine Clearance* 96.36; Estimated Glomerular Filt Rate 99 ml/min; Glucose* 97 mg/dL (60-115)
[2024-12-21 20:58] LABS: PCR FLU A Negative PCR FLU A (Negative); PCR FLU B Negative PCR FLU B (Negative); SARS PCR* Negative SARS-CoV-2 (Negative)
[2024-12-21 21:22] VITALS: BP 108/69; PULSE 65; RESP 18; TEMP 36.3; O2SAT 95
== END 2024-12-21 21:30 | disposition home or self-care (01) ==
PROVIDERS: Emergency Provider Family Medicine; PCP Family Medicine
DX: R11.2 Nausea with vomiting, unspecified (principal); R19.7 Diarrhea, unspecified; N76.0 Acute vaginitis
CPT/HCPCS: 36415; 80048; 81001; 85025; 86140; 87086; 87210; 87636; 96365; 96374; 96375; 99284; J1885; J2765; J3360; J7030